=== PATIENT | male | born 1950 | race Caucasian/White ===

== ENCOUNTER → 2023-06-22 08:36 | Outpatient (REF) | payer MEDICARE, SELFPAY ==
[2023-06-22 10:48] LABS: PSA, Total - Diagnostic < 0.06 ng/ml (0.0-4.0)
== END ==
LOC: REG 08:36
PROVIDERS: ATTENDING PHYSICIAN Specialist
DX: C61 Malignant neoplasm of prostate (principal)
CPT/HCPCS: 36415; 84153

== ENCOUNTER → 2023-09-26 07:43 | Outpatient (REF) | payer MEDICARE, SELFPAY | LOC: RAD 07:43 | PROVIDERS: ATTENDING PHYSICIAN Surgery Vascular Surgery | DX: I71.40 Abdominal aortic aneurysm, without rupture, unspecified (principal) | CPT/HCPCS: 76770 ==

== ENCOUNTER 2023-10-25 01:09 | Emergency (ER) | payer MEDICARE, SELFPAY ==
[2023-10-25] VITALS (7 sets, daily range): BP systolic 131–152; BP diastolic 80–94; BMI 25.2
[2023-10-25 01:40] LABS: % Basophils 0.6 % (0-2); % Eosinophils 3.1 % (0-6); % Immature Granulocytes 0.1 % (0-0.5); % Lymphocytes 21.6 % (20.5-51.1); % Monocytes 8.5 % (1.7-9.3); % Neutrophils 66.1 % (42.2-75.2); Absolute Eosinophils 0.2 10^3/uL (0-0.7); Absolute Lymphocytes 1.5 10^3/uL (1.2-3.4); Absolute Monocytes 0.6 10^3/uL (0.1-0.6); Absolute Neutrophils 4.4 10^3/uL (1.4-6.5); Hematocrit 37.3 % (39.0-52.0); Hemoglobin 13.3 g/dL (13.0-18.0); Mean Corp Hgb Conc. 35.7 g/dL (33.0-37.0); Mean Corpuscular Hgb 29.4 pg (27.0-31.0); Mean Corpuscular Volume 82.5 fL (80.0-94.0); Mean Platelet Volume 9.9 fL (7.4-10.4); Nucleated Red Blood Cells % 0.3 % (-); Platelet Count 188 10^3/uL (130-400); Red Blood Cell Count 4.52 10^6/uL (4.70-6.10); Red Cell Dist. Width 14.2 % (11.5-14.5); White Blood Cell Count 6.7 10^3/uL (4.8-10.8)
[2023-10-25 01:56] LABS: ALT (SGPT) 22 U/L (0-50); AST (SGOT) 28 U/L (17-59); Albumin 4.4 g/dl (3.5-5.0); Alkaline Phosphatase 108 U/L (38-126); Blood Urea Nitrogen 22 mg/dl (9-20); Calcium 10.1 mg/dl (8.4-10.2); Carbon Dioxide 20 mmol/L (22-30); Chloride 108 mmol/L (98-107); Glucose 103 mg/dl (70-99); Potassium 4.3 mmol/L (3.5-5.1); Sodium 140 mmol/L (135-145); Total Bilirubin 0.4 mg/dl (0.2-1.3); Total Protein 7.3 g/dl (6.3-8.2); eGFR 49.16
[2023-10-25 04:07] LABS: Urine Albumin Negative (Neg - Trace); Urine Bilirubin Negative (Negative); Urine Character Clear (Clear); Urine Color Yellow; Urine Glucose Negative (Negative); Urine Ketone Negative (Negative); Urine Leukocyte Negative (Negative); Urine Nitrite Negative (Negative); Urine Occult Blood Negative (Negative); Urine Urobilinogen Negative (Neg - 1+)
--- NOTE | 2023-10-25 06:02 | ED.GENMED ---
History of Present Illness
General
Chief Complaint: Flank Pain
Time Seen by Provider: 10/25/23 06:02
Travel History
Have you had any contact with someone who has COVID-19?: No
Do you have any symptoms of coronavirus? Fever > 100 degrees, chills, cough, shortness of breath, sore throat, loss of taste or smell, muscle aches, or headache?: No
History of Present Illness
History of Present Illness:
HPI: The patient presents with right groin pain over the past day. This started somewhat mild and gradually progressed to the point that he has tremendous difficulty walking. He has no loss of strength distally but his range of motion at the right
hip is limited due to pain. He has had a AAA repair in the past.
EXAM:
GENERAL: Well appearing but appears to be somewhat uncomfortable
HEENT: Moist oral mucosa
CARDIOVASCULAR: No murmurs, normal heart rate, regular rhythm, No chest wall tenderness
PULMONARY: No respiratory distress, breath sounds are clear and equal
ABDOMEN: Soft with no peritoneal signs, no tenderness
NEUROLOGIC: Excellent strength all extremities distally, no coordination deficits
PSYCHIATRIC: Appropriate mental status, normal insight and judgement
EXTREMITIES: There is markedly decreased active range of motion to flexion at the right hip, there is very good distal function of the right lower extremity, there are excellent DP pulses bilaterally
SKIN: No rash, no lesions
TIME OF INITIAL ENCOUNTER: 6:20 AM
NUMBER AND COMPLEXITY OF PROBLEMS ADDRESSED AT THE ENCOUNTER
� Chronic conditions affecting care: Former smoker, AAA repair, high blood pressure, hyperlipidemia, CAD/AZ, CKD
� Acute Exacerbation and/or Progression of Chronic Illness: This is an acute problem
� Differential Diagnosis includes: Hip flexor pathology, ureteral stone, UTI/pyelonephritis,
AMOUNT AND/OR COMPLEXITY OF DATA TO BE REVIEWED AND ANALYZED
� I performed an independent evaluation of and my interpretation is:
EKG:
CT: I personally reviewed CT imaging and agree with radiologist interpretation�the patient has an atrophic right kidney. He is status post infrarenal AAA endograft placement. Liver cyst noted.
X-rays:
Laboratory Studies: White count and hemoglobin are normal, renal function is slightly impaired with creatinine 1.5. Urinalysis shows no blood and no sign of infection.
Other:
� Review of other/old records: I reviewed records, the last 2 creatinines were also abnormal from last year
� Clinical information was obtained by an independent historian: Spoke to the at bedside
� Prescriptions/Medications Considered but not given:
� Further testing considered but not performed:
RISK OF COMPLICATIONS AND/OR MORBIDITY OR MORTALITY OF PATIENT MANAGEMENT
� Social determinants of health affecting care: Lives at home
� Discussion with other providers:
� Escalation of care including admission/observation vs risk of discharge considered: CT imaging relatively unremarkable. Held off on IV contrast as the patient has renal insufficiency. I notified patient of the left renal
lesion and recommendation for outpatient ultrasound follow-up however all of his symptoms are on the right side. On reassessment at 7:20 AM, the patient reports significant improvement after narcotic analgesia was given. Suspect hip flexor
pathology possibly exacerbated by Brilinta use.
Past History
Past History
ED Past Medical History: CAD, GERD, HTN, Hypercholesterolemia and Other (AAA)
ED Past Surgical History: Cardiac, Orthopedic and Urological
Social History
Tobacco: Non-smoker
Personal:
Phy Exam
Physical Exam
Physical Exam:
See HPI
Course
Orders/Labs/Results
Orders:
Orders
10/25/23 01:32
CMP [Comprehensive Metabolic Panel] Urgent
Complete Blood Count/With Diff Urgent
10/25/23 03:11
CT Abd/pel Without Iv Or Oral Urgent
Comment:
Reason For Exam: r flank pain
10/25/23 04:01
Urinalysis Reflex To Culture Urgent
Date Specimen was Collected: 10/25/23
Time Specimen was Collected: 04:00
10/25/23 06:26
HYDROmorphone [Dilaudid] 0.5 mg IV NOW STA
Ondansetron Injectable [Zofran] 4 mg IV NOW STA
Abnormal Lab Results
10/25/23
01:32
RBC 4.52 L 10^6/uL
(4.70-6.10)
Hct 37.3 L %
(39.0-52.0)
Chloride 108 H mmol/L
(98-107)
Carbon Dioxide 20 L mmol/L
(22-30)
BUN 22 H mg/dl
(9-20)
Creatinine 1.5 H mg/dL
(0.7-1.3)
Glucose 103 H mg/dl
(70-99)
10/25/23 01:32
10/25/23 01:32
Vital Signs
Initial and Last Documented VS:
Initial Vital Signs
Temp Pulse Resp BP Pulse Ox
98.2 F 71 21 144/88 97
10/25/23 01:13 10/25/23 01:13 10/25/23 01:13 10/25/23 01:13 10/25/23 01:13
Last Documented Vital Signs
Temp Pulse Resp BP Pulse Ox
98.2 F 60 13 135/80 97
10/25/23 01:13 10/25/23 06:42 10/25/23 06:03 10/25/23 06:47 10/25/23 06:42
*Critical Care Note
Total Time (30-74mins, 75-104mins- exclusive of procedures): Not Applicable
ED Attending Note
-
Portions of this chart may have been created with voice recognition software.� Occasional wrong word or��sound alike� substitutions may have occurred due to the inherent limitations of voice recognition software.
Discharge Plan
Departure
Patient Disposition: Home (Routine Discharge)
Date of Disposition: 10/25/23
Time of Disposition: 07:19
Patient with high blood pressure during this ER visit?: Yes
Discharge Problem:
Strain of flexor muscle of right hip
Instructions: Muscle Strain (DC), BLOOD PRESSURE
Prescriptions:
New
oxycodone-acetaminophen [Percocet] 5-325 mg tablet
1 tab PO Q6HPRN PRN (Reason: pain) Qty: 14 0RF
ondansetron HCl 4 mg tablet
4 mg PO Q6H PRN (Reason: nausea and vomiting) Qty: 14 0RF
No Action
omeprazole 20 MG capsule,delayed release(DR/EC)
20 mg PO DAILY
magnesium oxide 500 MG capsule
500 mg PO DAILY
Men 50 Plus Multivitamin 1 EACH tablet
1 ea PO DAILY
loratadine 10 MG tablet
10 mg PO DAILY
metoprolol tartrate 25 MG tablet
25 mg PO BID
acetaminophen 325 MG tablet
650 mg PO Q4HWA 0RF
alum-mag hydroxide-simeth [Mag-Al Plus] 30 ML suspension
30 ml PO Q4HPRN PRN (Reason: INDIGESTION) 0RF
albuterol sulfate 90 mcg/actuation aerosol powdr breath activated
2 inh inhalation Q4H PRN (Reason: shortness of breath) Qty: 1 0RF
atorvastatin 40 mg Tablet
40 mg PO DAILY
aspirin 81 mg Tablet
81 mg PO DAILY
ezetimibe 10 mg Tablet
10 mg PO DAILY
coenzyme Q10 [CoQ-10] 100 mg Capsule
100 mg PO DAILY
cholecalciferol (vitamin D3) [Vitamin D3] 50 mcg (2,000 unit) Tablet
50 mcg PO DAILY
Edarbi 40 mg Tablet
40 mg PO DAILY
Brilinta 90 mg Tablet
90 mg PO BID
Vitamin B-12
1,000 mg PO DAILY
Referrals:
Elvis Moon MD [Active] - Follow up in 2-3 days
Charles Stewart MD [Family Provider] -
Activity Restrictions/Additional Instructions:
I recommend that you not take any ibuprofen/Motrin given the renal insufficiency. Otherwise your blood work is unremarkable. Urinalysis shows no sign of blood or infection. I suspect that your symptoms are related to a hip flexor strain. You
could consider following up with Dr. Moon in a few days if your symptoms persist. CAT scan shows the graft in your aortic aneurysm. Total hip arthroplasties are noted on CT. The radiologist also noted 'indeterminate exophytic left renal lesion
measuring 2 cm for which outpatient renal ultrasound is recommended'
Interventions
Interventions:
*Risk Screen - Suicide Last Done: 10/25/23 02:55
*General Assessment Last Done: 10/25/23 02:55
*Neglect/Abuse Screening Last Done: 10/25/23 02:55
ED- Fall Risk Assessment Last Done: 10/25/23 02:55
*ED COVID-19 Vaccine History Last Done: 10/25/23 02:55
GA-Nmckdx-Qfwawenljv Assessment Last Done: 10/25/23 02:55
ED-Male Genitourinary Assessment Last Done: 10/25/23 02:55
Discharge Date and Time
Print Language: JAPANESE
[2023-10-25] MEDS: DILAUDID 0.5 MG IV (06:35)
[2023-10-25] MEDS: ZOFRAN 4 MG IV (06:36)
== END 2023-10-25 07:51 | disposition home or self-care (01) ==
LOC: EMR 01:09
PROVIDERS: Student in an Organized Health Care Education/Training Program; EMERGENCY PHYSICIAN Emergency Medicine; FAMILY PHYSICIAN Internal Medicine
DX: R10.9 Unspecified abdominal pain (principal); E78.00 Pure hypercholesterolemia, unspecified; I12.9 Hypertensive chronic kidney disease with stage 1 through stage 4 chronic kidney disease, or unspecified chronic kidney disease; N18.9 Chronic kidney disease, unspecified; I25.10 Atherosclerotic heart disease of native coronary artery without angina pectoris; K21.9 Gastro-esophageal reflux disease without esophagitis; Z86.79 Personal history of other diseases of the circulatory system
CPT/HCPCS: 99284; 96374; 96375; 74176; 80053; 81003; 85025

== ENCOUNTER → 2023-11-02 12:47 | Outpatient (REF) | payer MEDICARE, SELFPAY | LOC: HWRAD 12:47 | PROVIDERS: ATTENDING PHYSICIAN Internal Medicine | DX: N28.1 Cyst of kidney, acquired (principal) | CPT/HCPCS: 76775 ==

== ENCOUNTER → 2023-11-14 09:40 | Outpatient (REF) | payer MEDICARE, SELFPAY ==
[2023-11-14 12:09] LABS: % Basophils 0.5 % (0-2); % Eosinophils 2.1 % (0-6); % Immature Granulocytes 0.3 % (0-0.5); % Lymphocytes 15.4 % (20.5-51.1); % Monocytes 7.9 % (1.7-9.3); % Neutrophils 73.8 % (42.2-75.2); Absolute Eosinophils 0.2 10^3/uL (0-0.7); Absolute Lymphocytes 1.2 10^3/uL (1.2-3.4); Absolute Monocytes 0.6 10^3/uL (0.1-0.6); Absolute Neutrophils 5.6 10^3/uL (1.4-6.5); Hematocrit 38.9 % (39.0-52.0); Mean Corp Hgb Conc. 33.4 g/dL (33.0-37.0); Mean Corpuscular Hgb 29.1 pg (27.0-31.0); Mean Corpuscular Volume 87.2 fL (80.0-94.0); Mean Platelet Volume 10.3 fL (7.4-10.4); Nucleated Red Blood Cells % 0 % (-); Platelet Count 215 10^3/uL (130-400); Red Blood Cell Count 4.46 10^6/uL (4.70-6.10); White Blood Cell Count 7.6 10^3/uL (4.8-10.8)
[2023-11-14 12:15] LABS: ALT (SGPT) 20 U/L (0-50); AST (SGOT) 28 U/L (17-59); Albumin 4.5 g/dl (3.5-5.0); Alkaline Phosphatase 81 U/L (38-126); Blood Urea Nitrogen 22 mg/dl (9-20); Calcium 9.8 mg/dl (8.4-10.2); Carbon Dioxide 25 mmol/L (22-30); Chloride 104 mmol/L (98-107); Glucose 91 mg/dl (70-99); HDL Cholesterol 31 mg/dl; LDL Cholesterol, Calculated 66 mg/dl; Potassium 5.2 mmol/L (3.5-5.1); Sodium 139 mmol/L (135-145); Total Bilirubin 0.6 mg/dl (0.2-1.3); Total Cholesterol 117 mg/dl (50-199); Total Protein 7.1 g/dl (6.3-8.2); Triglyceride 104 mg/dl (10-149); Very Low Density Lipoprotein 20 mg/dl (0-30)
[2023-11-14 12:40] LABS: TSH 2.65 uIU/ml (0.47-4.68)
== END ==
LOC: HWLAB 09:40
PROVIDERS: ATTENDING PHYSICIAN Internal Medicine
DX: I25.10 Atherosclerotic heart disease of native coronary artery without angina pectoris (principal); E78.2 Mixed hyperlipidemia; I10 Essential (primary) hypertension; I34.0 Nonrheumatic mitral (valve) insufficiency; Z98.890 Other specified postprocedural states; J44.9 Chronic obstructive pulmonary disease, unspecified; K21.9 Gastro-esophageal reflux disease without esophagitis; Z85.46 Personal history of malignant neoplasm of prostate; N18.30 Chronic kidney disease, stage 3 unspecified; Z76.89 Persons encountering health services in other specified circumstances
CPT/HCPCS: 36415; 80053; 80061; 84443; 85025

== ENCOUNTER → 2024-02-01 09:26 | Outpatient (REF) | payer MEDICARE, SELFPAY | LOC: RCS 09:26 | PROVIDERS: ATTENDING PHYSICIAN Nuclear Medicine Nuclear Cardiology; FAMILY PHYSICIAN Internal Medicine | DX: I10 Essential (primary) hypertension (principal) | CPT/HCPCS: 93306 ==

== ENCOUNTER → 2024-03-14 09:35 | Outpatient (REF) | payer MEDICARE, SELFPAY ==
[2024-03-14 12:18] LABS: Albumin 4.6 g/dl (3.5-5.0); Blood Urea Nitrogen 18 mg/dl (9-20); Calcium 9.7 mg/dl (8.4-10.2); Carbon Dioxide 26 mmol/L (22-30); Chloride 103 mmol/L (98-107); Glucose 92 mg/dl (70-99); Phosphorus 3.4 mg/dl (2.5-4.5); Potassium 4.8 mmol/L (3.5-5.1); Sodium 143 mmol/L (135-145)
[2024-03-14 13:10] LABS: Urine Protein < 5 mg/dl (0-12)
[2024-03-14 13:15] LABS: Urine Calcium 1.9 mg/dl
[2024-03-16 08:47] LABS: Intact PTH 43.8 pg/ml (13.6-85.8)
== END ==
LOC: HWLAB 09:35
PROVIDERS: ATTENDING PHYSICIAN Internal Medicine; FAMILY PHYSICIAN Internal Medicine
DX: N18.31 Chronic kidney disease, stage 3a (principal)
CPT/HCPCS: 36415; 80069; 82340; 83970; 84156

== ENCOUNTER → 2024-04-12 09:16 | Outpatient (REF) | payer MEDICARE, SELFPAY | LOC: HWRAD 09:16 | PROVIDERS: ATTENDING PHYSICIAN Internal Medicine Critical Care Medicine; FAMILY PHYSICIAN Internal Medicine | DX: Z87.891 Personal history of nicotine dependence (principal) | CPT/HCPCS: 71271 ==

== ENCOUNTER → 2024-05-29 09:35 | Outpatient (REF) | payer MEDICARE, SELFPAY ==
[2024-05-29 12:51] LABS: Albumin 4.5 g/dl (3.5-5.0); Blood Urea Nitrogen 19 mg/dl (9-20); Calcium 9.7 mg/dl (8.4-10.2); Carbon Dioxide 29 mmol/L (22-30); Chloride 101 mmol/L (98-107); Glucose 100 mg/dl (70-99); Phosphorus 3.6 mg/dl (2.5-4.5); Potassium 4.6 mmol/L (3.5-5.1); Sodium 140 mmol/L (135-145); eGFR 42.04
[2024-05-29 13:27] LABS: Microalbumin, Random Urine < 0.6 mg/dl (0.6-1.7); Microalbumin/creatinine Ratio 7.2 mg/g
[2024-05-29 14:11] LABS: Intact PTH 50.7 pg/ml (13.6-85.8)
== END ==
LOC: HWLAB 09:35
PROVIDERS: ATTENDING PHYSICIAN Internal Medicine
DX: N18.31 Chronic kidney disease, stage 3a (principal); N26.1 Atrophy of kidney (terminal); E87.5 Hyperkalemia
CPT/HCPCS: 36415; 80069; 82043; 82570; 83970

== ENCOUNTER → 2024-06-26 09:05 | Outpatient (REF) | payer MEDICARE, SELFPAY ==
[2024-06-26 14:41] LABS: PSA, Total - Diagnostic < 0.06 ng/ml (0.0-4.0)
== END ==
LOC: HWLAB 09:05
PROVIDERS: ATTENDING PHYSICIAN Specialist; FAMILY PHYSICIAN Internal Medicine
DX: C61 Malignant neoplasm of prostate (principal)
CPT/HCPCS: 36415; 84153

== ENCOUNTER → 2024-07-31 09:17 | Outpatient (REF) | payer MEDICARE, SELFPAY ==
[2024-07-31 13:06] LABS: ALT (SGPT) 20 U/L (0-50); AST (SGOT) 26 U/L (17-59); Albumin 4.1 g/dl (3.5-5.0); Alkaline Phosphatase 76 U/L (38-126); Blood Urea Nitrogen 16 mg/dl (9-20); Calcium 9.5 mg/dl (8.4-10.2); Carbon Dioxide 26 mmol/L (22-30); Chloride 106 mmol/L (98-107); Glucose 105 mg/dl (70-99); HDL Cholesterol 36 mg/dl; LDL Cholesterol, Calculated 66 mg/dl; Potassium 4.4 mmol/L (3.5-5.1); Sodium 140 mmol/L (135-145); Total Bilirubin 0.8 mg/dl (0.2-1.3); Total Cholesterol 118 mg/dl (50-199); Total Protein 6.8 g/dl (6.3-8.2); Triglyceride 84 mg/dl (10-149); Very Low Density Lipoprotein 16 mg/dl (0-30); eGFR 45.21
== END ==
LOC: HWLAB 09:17
PROVIDERS: ATTENDING PHYSICIAN Nuclear Medicine Nuclear Cardiology; FAMILY PHYSICIAN Internal Medicine
DX: I10 Essential (primary) hypertension (principal)
CPT/HCPCS: 36415; 80053; 80061

== ENCOUNTER → 2024-09-23 08:25 | Outpatient (REF) | payer MEDICARE, SELFPAY ==
[2024-09-23 10:43] LABS: Blood Urea Nitrogen 24 mg/dl (9-20); Calcium 9.4 mg/dl (8.4-10.2); Carbon Dioxide 23 mmol/L (22-30); Chloride 104 mmol/L (98-107); Glucose 97 mg/dl (70-99); Potassium 4.7 mmol/L (3.5-5.1); Sodium 141 mmol/L (135-145); eGFR 48.85
== END ==
LOC: HWLAB 08:25
PROVIDERS: ATTENDING PHYSICIAN Surgery Vascular Surgery; FAMILY PHYSICIAN Internal Medicine
DX: I71.40 Abdominal aortic aneurysm, without rupture, unspecified (principal)
CPT/HCPCS: 36415; 80048

== ENCOUNTER → 2024-09-25 07:11 | Outpatient (REF) | payer MEDICARE, SELFPAY | LOC: RAD 07:11 | PROVIDERS: ATTENDING PHYSICIAN Surgery Vascular Surgery; FAMILY PHYSICIAN Internal Medicine | DX: I71.40 Abdominal aortic aneurysm, without rupture, unspecified (principal) | CPT/HCPCS: 74174; Q9967 ==

== ENCOUNTER → 2024-11-06 08:53 | Outpatient (REF) | payer MEDICARE, SELFPAY ==
[2024-11-06 12:37] LABS: Albumin 4.3 g/dl (3.5-5.0); Blood Urea Nitrogen 31 mg/dl (9-20); Calcium 9.7 mg/dl (8.4-10.2); Carbon Dioxide 26 mmol/L (22-30); Chloride 106 mmol/L (98-107); Glucose 94 mg/dl (70-99); Phosphorus 3.8 mg/dl (2.5-4.5); Potassium 4.8 mmol/L (3.5-5.1); Sodium 141 mmol/L (135-145); eGFR 39.25
== END ==
LOC: HWLAB 08:53
PROVIDERS: ATTENDING PHYSICIAN Internal Medicine; FAMILY PHYSICIAN Internal Medicine
DX: N18.31 Chronic kidney disease, stage 3a (principal)
CPT/HCPCS: 36415; 80069

== ENCOUNTER 2024-11-12 18:23 | Inpatient (IN) | payer MEDICARE, SELFPAY ==
[2024-11-12] VITALS (19 sets, daily range): BP systolic 99–156; BP diastolic 63–103; BMI 26.9
[2024-11-12 13:01] LABS: % Basophils 0.5 % (0-2); % Eosinophils 2.6 % (0-6); % Immature Granulocytes 0.3 % (0-0.5); % Lymphocytes 15.3 % (20.5-51.1); % Monocytes 9.5 % (1.7-9.3); % Neutrophils 71.8 % (42.2-75.2); Absolute Eosinophils 0.2 10^3/uL (0-0.7); Absolute Lymphocytes 1.2 10^3/uL (1.2-3.4); Absolute Monocytes 0.7 10^3/uL (0.1-0.6); Absolute Neutrophils 5.5 10^3/uL (1.4-6.5); Hematocrit 41.2 % (39.0-52.0); Hemoglobin 14.3 g/dL (13.0-18.0); Mean Corp Hgb Conc. 34.7 g/dL (33.0-37.0); Mean Corpuscular Hgb 29.5 pg (27.0-31.0); Mean Corpuscular Volume 85.1 fL (80.0-94.0); Mean Platelet Volume 10.3 fL (7.4-10.4); Nucleated Red Blood Cells % 0 % (-); Platelet Count 182 10^3/uL (130-400); Red Blood Cell Count 4.84 10^6/uL (4.70-6.10); Red Cell Dist. Width 13.7 % (11.5-14.5); White Blood Cell Count 7.7 10^3/uL (4.8-10.8)
[2024-11-12 13:25] LABS: ALT (SGPT) 17 U/L (0-50); AST (SGOT) 20 U/L (17-59); Albumin 4.4 g/dl (3.5-5.0); Alkaline Phosphatase 69 U/L (38-126); Blood Urea Nitrogen 19 mg/dl (9-20); Calcium 9.8 mg/dl (8.4-10.2); Carbon Dioxide 24 mmol/L (22-30); Chloride 110 mmol/L (98-107); Glucose 96 mg/dl (70-99); Magnesium 2.3 mg/dl (1.6-2.3); Potassium 4.9 mmol/L (3.5-5.1); Sodium 142 mmol/L (135-145); Total Bilirubin 0.5 mg/dl (0.2-1.3); Total Protein 7.2 g/dl (6.3-8.2); eGFR 53.07
[2024-11-12 13:31] LABS: NT-proBNP 1250 pg/ml
[2024-11-12 14:06] LABS: TSH Reflex To Free T4 2.87 uIU/ml (0.47-4.68)
[2024-11-12] MEDS: LOPRESSOR 5 MG IV (14:32)
--- NOTE | 2024-11-12 15:30 | ED.GENMED ---
History of Present Illness
General
Chief Complaint: Dizziness
Time Seen by Provider: 11/12/24 13:50
History of Present Illness
History of Present Illness:
74-year-old male with history of hypertension, hyperlipidemia, AAA status post repair presenting to the emergency department for generalized weakness and fatigue. Patient reports symptoms for the past 3 weeks. He went to his doctor today, was
found to be hypotensive. Plan was to cut his blood pressure medication, however then also noted that he was in atrial fibrillation. Patient was subsequently sent to the cardiology office. During intake at the cardiology office, again noted to be
hypotensive, sent to the ER for further assessment. Does note that he did syncopal episode yesterday, found him on the ground. Denies any associated chest pain or difficulty breathing. Does note that last evening he felt like his heart was
racing, otherwise denies significant palpitations. No known history of atrial fibrillation. He is not anticoagulated. He is scheduled next month to get revision of his AAA. Denies additional acute medical complaints
Past History
Past History
ED Past Medical History: CAD, GERD, HTN, Hypercholesterolemia and Other (AAA)
ED Past Surgical History: Cardiac, Orthopedic and Urological
Social History
Tobacco: Non-smoker
Personal:
Phy Exam
Physical Exam
Physical Exam:
General: Well-appearing, no clinical signs of dehydration, nontoxic and in no acute distress
HEENT: protecting airway
Neck: appears supple
CV: Irregular irregular rhythm, tachycardic
Resp: No accessory muscle use, no increased work of breathing, lungs clear to auscultation bilaterally
Abd: Soft and non-distended, no tenderness to palpation
Extremities: No deformities, no swelling, no erythema
Neuro: alert, no focal neurologic deficit
: deferred
Rectal: deferred
Psych: Normal affect
Skin: Intact
Scores
[id number] Score for Afib Stroke Risk
Age in Years (65=0, 65-74=1, >/=75=2): 65-74
Sex (Female=+1): Male
Congestive Heart Failure History (Yes=+1): No
Hypertension History (Yes=+1): Yes
Stroke/TIA/Thromboembolism History (Yes=+2): No
Vascular Disease History (Yes=+1): No
Diabetes Mellitus (Yes=+1): No
Score: 2
Anticoagulation Recommendations: Recommend anticoagulation (as validated in nonvalvular fib)
Course
Orders/Labs/Results
Orders:
Orders
11/12/24 12:36
Electrocardiogram (*1) Urgent
Reason for Study: Vertigo / Dizzy
EKG- Treatment ONCE
11/12/24 12:54
CBC/With Diff [Complete Blood Count/With Diff] Urgent
CMP [Comprehensive Metabolic Panel] Urgent
Magnesium Urgent
Pro-BNP [NT-proBNP] Urgent
TSH Reflex To Free T4 Urgent
Troponin I Urgent
Comment: ADD ON
11/12/24 14:15
Metoprolol [Lopressor] 5 mg IV NOW STA
11/12/24 16:47
CR Chest - 2 Views Stat
Comment:
Reason For Exam: CHF
11/12/24 16:48
Add On- LAB Routine
Tests Added?: TSH with reflex to free T4
Add On- LAB Routine
Tests Added?: troponin
11/12/24 17:00
Diltiazem 125 mg/125 ml Nss [Cardizem] 125 mg in 125 ml IV PER PROTOCOL
Initial dose in mg/hr, then titrate:: 5
Titrate to keep:: Heart rate 80-100 bpm
Titrate by mg/hr:: 5 mg/hr
Frequency of titrations (minutes):: 15
Maximum dose in mg/hr:: 15
11/12/24 17:50
Admit/Transfer Patient As Directed
Co-Sign Provider:
Level of Care: Inpatient admission
Assign to:: IVU
Physician / Group: [email or web address]
Diagnosis: New A Flutter
Reason for Hospitalization: new a flutter
Expected length of stay greater than two midnights?: Yes
ELOS- Estimated Length of Stay in days: 3
I certify the patient meets the requirements for IP care: Yes
11/12/24 18:00
Furosemide [Lasix] 20 mg IV ONCE ONE
11/12/24 20:00
Apixaban [Eliquis] 5 mg PO BID
11/12/24 20:10
Albuterol [ProAIR HFA INHALER] 2 puff INH R Q4HPRN PRN sob
Atorvastatin [Lipitor] 40 mg PO QPM
azilsartan medoxomil [Edarbi] See Dose Instructions PO QPM
11/13/24 08:00
Aspirin Low Dose EC [Aspir Low (Enteric Coated)] 81 mg PO DAILY
Ezetimibe [Zetia] 10 mg PO DAILY
11/15/24 11:00
DC Protocol for Telemetry ONCE
Abnormal Lab Results
11/12/24
12:54
Absolute Monos (auto) 0.7 H 10^3/uL
(0.1-0.6)
Lymphocytes % 15.3 L %
(20.5-51.1)
Monocytes % 9.5 H %
(1.7-9.3)
Chloride 110 H mmol/L
(98-107)
Creatinine 1.4 H mg/dL
(0.7-1.3)
11/12/24 12:54
11/12/24 12:54
Vital Signs
Initial and Last Documented VS:
Initial Vital Signs
Temp Pulse Resp BP Pulse Ox
98.4 F 125 20 145/85 97
11/12/24 12:42 11/12/24 12:42 11/12/24 12:42 11/12/24 12:42 11/12/24 12:42
Last Documented Vital Signs
Temp Pulse Resp BP Pulse Ox
97.8 F 65 16 118/80 96
11/13/24 11:31 11/13/24 14:15 11/13/24 11:31 11/13/24 11:31 11/13/24 11:31
MDM/Problems Addressed
MDM/Problems Addressed:
74-year-old male with history of AAA status post repair, hypertension presenting for weakness and fatigue with syncopal episode yesterday. Vital signs are significant for tachycardia, noted to be hypotensive prior to arrival, presently normotensive.
On exam patient is resting comfortably, no acute distress or discomfort. EKG and monitors consistent with a flutter with RVR. Suspect etiology of patient's symptoms, which has been ongoing for the past several weeks. Given duration of symptoms
and no anticoagulation status, not candidate for cardioversion. Will plan for laboratory analysis. Will try metoprolol for rate control and discussed with cardiology.
15:30 - Heart rate slightly improved after metoprolol. Labs grossly unremarkable. Pending cardiology assessment
*Pulse Oximetry
SaO2: 97
Oxygen Mode of Delivery: Room air
Patient hypoxic: no
*EKG
Interpreted by ED Provider?: Yes
EKG Intrepretation Date: 11/12/24
EKG Intrepretation Time: 15:37
Interpretation: abnormal
Comparison EKG: changes noted
Heart Rate: 123
Rate: tachycardiac
Rhythm: atrial flutter
[place]: normal axis
QRS Pattern: normal QRS
Ischemia: non-specific ST changes
*Critical Care Note
Total Time (30-74mins, 75-104mins- exclusive of procedures): Not Applicable
ED Attending Note
-
Portions of this chart may have been created with voice recognition software.� Occasional wrong word or��sound alike� substitutions may have occurred due to the inherent limitations of voice recognition software.
Discharge Plan
Departure
Patient Disposition: Admit
Date of Disposition: 11/12/24
Time of Disposition: 16:57
Presentation/result/management discussed w/ accepting MD/DO: Hospitalist
Condition: Fair
Discharge Problem:
New onset atrial fibrillation, CHF (congestive heart failure)
Interventions
Interventions:
*Risk Screen - Suicide Last Done: 11/12/24 12:42
*General Assessment Last Done: 11/12/24 12:42
*Neglect/Abuse Screening Last Done: 11/12/24 12:42
*ED COVID-19 Vaccine History Last Done: 11/12/24 20:13
*Nursing Disposition Last Done: 11/12/24 19:55
ED- Neurological Assessment Last Done: 11/12/24 13:48
ED- Cardiac Assessment Last Done: 11/12/24 13:48
Discharge Date and Time
Discharge Date/Time: 11/12/24 19:58
--- NOTE | 2024-11-12 16:42 | CON.CAR ---
Addendum entered and electronically signed by Brody Urias DO 11/12/24 17:39:
I saw and examined the patient.
The Aeronautical Engineering Officer's note was reviewed and I agree with the note.
Comment:
Plan:
Discussed atrial fibrillation including rate control, rhythm control and stroke prophylaxis.
Start IV Cardizem and titrate as needed for better heart rate control.
He was not on any AV yasmin blocking agents prior to admission.
Start Eliquis 5 mg twice daily and continue aspirin as he has a history of significant CAD.
He has elevated [id number] score.
Discussed rhythm control with WERO/cardioversion in the a.m. He does have a narrow window as he has an upcoming surgery/procedure with vascular at the end of November. He understands that he will require 4 weeks of anticoagulation prior to holding it
for his procedure.
May ultimately consider Amiodarone in attempt to keep patient in sinus rhythm in preparation for upcoming surgery
He may be considered for ablation in the future pending recurrence.
Received IV lasix for elevated pBNP and evidence of volume overload.
Monitor bps with AV yasmin blockers
Nephrology reportedly told patient to decrease his Edarbi to 20 mg daily at office visit earlier today
Check troponin and TSH
Discussed with at bedside.
HPI: Patient is a 74-year-old male with past medical history of CAD with NSTEMI status post PCI to RCA and OM1 08/2022. During that time was also noted to have OM2 disease which was ballooned as vessel was small and not amenable to PCI. He had been
on aspirin and Brilinta, with Brilinta being stopped 07/2024. He also has history of hypertension, hyperlipidemia, GERD, history of prostate cancer s/p prostatectomy. He is followed by vascular for AAA status post repair with stent graft in 2020
and is scheduled for upcoming vascular surgery for endoleak repair with Dr. Ivan 12/17/2024. In preparation for this he was seen today by Dr. Beck as he has chronic renal insufficiency due to prior atrophic right kidney and was noted to have
elevated heart rate. He then presented to cardiology office and was referred to the ER. On arrival to ER was noted to be in a flutter with RVR, new diagnosis. He reports over the last week he has noted worsening generalized fatigue. His
also reports he fell 2 days ago while carrying a 2 x 4 and he states it was related to generalized weakness. He denies loss of consciousness. He denies chest discomfort. He does report some abdominal bloating and lower extremity edema. proBNP
1250.
Original Note:
Consultation
Consultation Request
Date/Time Consultation Performed: 11/12/24
Requesting Provider: Dr. Eldridge
Performing Provider: Vanita Ring PA-C for Dr. Urias
Reason for Consultation: aflutter
Medical History
-
Chief Complaint: elevated HR
History of Present Illness:
Patient is a 74-year-old male with past medical history of CAD with NSTEMI status post PCI to RCA and OM1 08/2022. During that time was also noted to have OM2 disease which was ballooned as vessel was small and not amenable to PCI. He had been on
aspirin and Brilinta, with Brilinta being stopped 07/2024. He also has history of hypertension, hyperlipidemia, GERD, history of prostate cancer s/p prostatectomy. He is followed by vascular for AAA status post repair with stent graft in 2020 and
is scheduled for upcoming vascular surgery for endoleak repair with Dr. Ivan 12/17/2024. In preparation for this he was seen today by Dr. Beck as he has chronic renal insufficiency due to prior atrophic right kidney and was noted to have
elevated heart rate. He then presented to cardiology office and was referred to the ER. On arrival to ER was noted to be in a flutter with RVR, new diagnosis. He reports over the last week he has noted worsening generalized fatigue. His
also reports he fell 2 days ago while carrying a 2 x 4 and he states it was related to generalized weakness. He denies loss of consciousness. He denies chest discomfort. He does report some abdominal bloating and lower extremity edema. proBNP
1250.
PMH:
CAD with NSTEMI status post PCI to RCA and OM 05/2022 with ballooning of OM 2 as small and not amenable to PCI
AAA with endoleak planned for repair 12/17/2024
Hypertension
Hyperlipidemia
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
Prostate cancer status post prostatectomy
GERD
Past Medical History
Past Medical History: Other (in HPI)
Social History
Tobacco: Former Smoker
Alcohol: Occasional
Personal:
Living: With Family
Family History
Family History: Other (AAA, heart disease, kidney failure, CAD/MA, hypertension)
Allergies / Home Medications
Allergy/AdvReac Type Severity Reaction Status Date / Time
adhesive tape Allergy BLISTERS Verified 11/12/24 12:42
cat dander Allergy Hives Verified 11/12/24 12:42
Seasonal Allergy Nasal Uncoded 11/12/24 12:42
congestion,
itchy eyes
�Medication �Instructions �Recorded �Confirmed �Type
omeprazole 20 mg capsule,delayed 20 mg PO DAILY 01/18/11 11/12/24 History
release
ticmbgkl-cj-nxvrv 300 mcg-K 60 1 ea PO DAILY 05/07/18 11/12/24 History
mcg-lycop 600 mcg-lutein 300 mcg
tablet (Men 50 Plus Multivitamin)
loratadine 10 mg tablet 10 mg PO DAILY 03/18/19 11/12/24 History
albuterol sulfate 90 mcg/actuation 2 inh inhalation Q4H PRN shortness 04/03/23 11/12/24 Rx
breath activated powder inhaler of breath #1 ea
aspirin 81 mg tablet 81 mg PO DAILY 10/25/23 11/12/24 History
atorvastatin 40 mg tablet 40 mg PO DAILY 10/25/23 11/12/24 History
azilsartan medoxomil 40 mg tablet 40 mg PO DAILY 10/25/23 11/12/24 History
(Edarbi)
cholecalciferol (vitamin D3) 50 50 mcg PO DAILY 10/25/23 11/12/24 History
mcg (2,000 unit) tablet (Vitamin
D3)
coenzyme Q10 100 mg capsule 300 mg PO DAILY 10/25/23 11/12/24 History
(CoQ-10)
ezetimibe 10 mg tablet 10 mg PO DAILY 10/25/23 11/12/24 History
ondansetron HCl 4 mg tablet 4 mg PO Q6H PRN nausea and 10/25/23 11/12/24 Rx
vomiting #14 tabs
Review of Systems
-
History Source: Patient and Family
All other systems: Negative unless noted
Physical Exam
Vital Signs
Temp Pulse Resp BP Pulse Ox
98.4 F 109 19 122/96 96
11/12/24 12:42 11/12/24 15:53 11/12/24 15:53 11/12/24 15:53 11/12/24 15:53
Lab Results
11/12/24 12:54
11/12/24 12:54
Phd-S-Sxearwbmcww Pept 1250 pg/ml 11/12/24 12:54
Physical Exam
General: No Apparent Distress and Comfortable
HEENT: Normocephalic, Anicteric and Moist Mucous Membranes
Respiratory: Crackles (LLB) and Non Labored Respirations
Cardiac: S1/S2 and Irregular Rhythm
GI: Soft, Non Tender, Normal Bowel Sounds and Distended (mild)
Musculoskeletal: No Clubbing, No Cyanosis and Edema (trace -1+ edema of B/L LE)
Skin: Warm and Dry
Neuro: AO x 3
Impression / Plan
-
Primary Armature Winder: Dr. Urias
Assessment:
Presentation with elevated heart rate
Typical atrial flutter with RVR, new diagnosis
Relative hypotension
Acute CHF, unknown type, suspected diastolic
Fall 11/10/24
CAD with NSTEMI status post PCI to RCA and OM 05/2022 with ballooning of OM 2 as small and not amenable to PCI
AAA with endoleak planned for repair 12/17/2024
Hypertension
Hyperlipidemia
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
Prostate cancer status post prostatectomy
GERD
ECHO 02/01/2024: EF 55 to 60%, no regional wall motion abnormalities noted, mild concentric LVH, mild to moderate MR
Plan:
- Patient presented with elevated heart rate and found to be in typical atrial flutter with RVR, new diagnosis of unclear duration. Also noted to have some evidence of acute CHF, new diagnosis
- As heart rates are variable in a flutter and patient symptomatic, will start IV Cardizem gtt at 5 and uptitrate as needed for heart rate control
- He was not on rate control agents prior to admission
- [id number] score of 4 for age, hypertension, CHF, vascular disease. Discussed anticoagulation and patient agreeable. Will continue aspirin 81 mg daily and add Eliquis 5 mg twice daily. Case management to assess cost to patient
- N.p.o. for WERO/cardioversion in a.m. procedure discussed with patient and family at bedside
- may consider for initiation of amiodarone in attempt to keep patient in sinus rhythm in preparation for upcoming surgery
- proBNP 1250. Chest x-ray ordered by me. Creatinine 1.4. Will give dose of IV Lasix 20 mg x 1 and assess response
- Will reassess EF by WERO in a.m. last echo from 01/2024 with results as above
- Check TSH
- Check troponin given CAD history
- Nephrology reportedly told patient to decrease his Edarbi to 20 mg daily at office visit earlier today
- Discussed with patient and family at bedside
Data Reviewed
-
EKG: Tracing Personally Visualized and interpreted
Medical Tests (Nuc Med, Echo etc): Report Reviewed by me
Labs: Labs Reviewed by me
Old Records: Reviewed
[2024-11-12] MEDS: LASIX 20 MG IV (17:40)
[2024-11-12] MEDS: CARDIZEM 125 IV (17:43)
--- NOTE | 2024-11-12 17:46 | HPS.HSE ---
Family Physician
-
Family Physician: Charles Stewart
Chief Complaint
-
new A Flutter
History of Present Illness
74M HX CAD with NSTEMI , PCI to RCA had been on aspirin and Brilinta, Brilinta being stopped 07/2024, also HX hypertension, hyperlipidemia, GERD, prostate cancer s/p prostatectomy, HX AAA status post repair with stent graft in 2020 and is
scheduled for upcoming vascular surgery for endoleak repair with Dr. Ivan 12/17/2024. I
Dr. Beck as he has chronic renal insufficiency due to prior atrophic right kidney and was noted to have elevated heart rate. He then presented to cardiology office and was referred to the ER.
On arrival to ER was noted to be in a flutter with RVR, new diagnosis.
fell 2 days ago elated to generalized weakness. H
Medical History
Past Medical History
Past Medical History: Reports HTN and Hypercholesterolemia
Additional Past Medical History:
CAD with NSTEMI status post PCI to RCA and OM 05/2022 with ballooning of OM 2 as small and not amenable to PCI
AAA with endoleak planned for repair 12/17/2024
Hypertension
Hyperlipidemia
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
Prostate cancer status post prostatectomy
GERD
Past Surgical History: Reports Urological (prostatectomy)
Social History
Tobacco: Non-smoker
Alcohol: None
Family History
Family History: Not pertinent
Allergies / Home Medications
Allergies reflects when Allergies were last updated in [facility].
Home Medications with original date entered in [facility]
Allergy/Medication List:
Allergies
Allergy/AdvReac Type Severity Reaction Status Date / Time
adhesive tape Allergy BLISTERS Verified 11/12/24 12:42
cat dander Allergy Hives Verified 11/12/24 12:42
Seasonal Allergy Nasal Uncoded 11/12/24 12:42
congestion,
itchy eyes
Home Medications
omeprazole 20 mg capsule,delayed release 20 mg PO DAILY 01/18/11
loratadine 10 mg tablet 10 mg PO DAILY 03/18/19
atorvastatin 40 mg tablet 40 mg PO QPM 10/25/23
azilsartan medoxomil 40 mg tablet (Edarbi) 40 mg PO QPM 10/25/23
cholecalciferol (vitamin D3) 50 mcg (2,000 unit) tablet (Vitamin D3) 50 mcg PO QPM 10/25/23
coenzyme Q10 100 mg capsule (CoQ-10) 300 mg PO DAILY 10/25/23
ezetimibe 10 mg tablet 10 mg PO DAILY 10/25/23
Prevagen 1 cap PO DAILY 11/12/24
albuterol sulfate 90 mcg/actuation aerosol inhaler (Ventolin HFA) 2 puff inhalation R Q4HPRN PRN sob 11/12/24
aspirin 325 mg tablet 975 mg PO DAILYPRN PRN mild pain 11/12/24
aspirin 81 mg tablet,delayed release 81 mg PO DAILY 11/12/24
multivitamin 1 tab PO QPM 11/12/24
Review of Systems
-
Constitutional: Reports No Symptoms
EENT: Reports No Symptoms
Respiratory: Reports No Symptoms
Cardiac: Reports See HPI
Abdomen/GI: Reports No Symptoms
: Reports No Symptoms
Musculoskeletal: Reports No Symptoms
Skin: Reports No Symptoms
Neurological: Reports No Symptoms
Endocrine: Reports No Symptoms
Hematologic/Lymphatic: Reports No Symptoms
Psych: Reports No Symptoms
Physical Exam
Vital Signs
Vital Signs
Temp Pulse Resp BP Pulse Ox
98.4 F 126 17 139/90 97
11/12/24 12:42 11/12/24 17:40 11/12/24 17:38 11/12/24 17:40 11/12/24 17:38
Physical Exam
General: Well Developed, Well Nourished and No Apparent Distress
HEENT: NormoCephalic, Moist mucous membranes and Atraumatic
Respiratory: Clear
Cardiac: S1/S2 and Irregular Rhythm; No Murmur or Rub
GI: Soft, Non Tender, Non Distended and Normal Bowel Sounds; No Organomegaly
Rectal: Deferred by Provider
Musculoskeletal: No Clubbing, No Cyanosis and No Edema
Skin: No Rash
Neuro: Nonfocal/grossly intact
Laboratory Results
-
11/12/24 12:54
11/12/24 12:54
Laboratory Results
Total Bilirubin 0.5 mg/dl (0.2-1.3) 11/12/24 12:54
AST 20 U/L (17-59) 11/12/24 12:54
ALT 17 U/L (0-50) 11/12/24 12:54
Alkaline Phosphatase 69 U/L (38-126) 11/12/24 12:54
Data Reviewed
-
Medical Tests (Nuc Med, Echo, EKG etc): Report Reviewed by me
Impression/Plan
-
ASSESSMENT & PLAN
Pending Rx reconciliation
New onset of A flutter with RVR, new diagnosis
Relative hypotension
Acute CHF, unknown type
Fall 11/10/24
[id number] score of 4
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
- agree with Eliquis - Case management to assess cost
- Diltiazem gtt
- NPO for WERO/cardioversion in AM
- f/u TSH
- appreciated DCA Card consult
Known HX
CKD 3 HC
HX CAD with NSTEMI status post PCI to RCA and OM
AAA with endoleak planned for repair 12/17/2024
Hypertension
Hyperlipidemia
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
Prostate cancer status post prostatectomy
GERD
DVT Px: Eliquis
Code: Full code
IP TLM
[2024-11-12 18:00] LABS: Troponin I < 0.012 ng/ml
[2024-11-12] MEDS: LIPITOR 40 MG PO (20:28)
[2024-11-12] MEDS: ELIQUIS 5 MG PO (20:28)
--- NOTE | 2024-11-12 22:07 | PTCARENOTE ---
Pt was transferred from ER into 2257 @ 1945. Pt is AAOx3 A Flutter on the monitor Cardizem infusing @ 15 mg/HR VSS. Pt was oriented to the room. Audrey started. Call vargas within reach.
--- NOTE | 2024-11-12 23:31 | PTCARENOTE ---
Pt converted to SR 65 EKG performed Ed Jake yost.
[2024-11-13] VITALS (12 sets, daily range): BP systolic 93–125; BP diastolic 49–82; BMI 26.9
--- NOTE | 2024-11-13 03:17 | PTCARENOTE ---
Updated Zen Joseph PA Pt's HR 60's BP 90's/ 60's on Cardizem 5mg/HR. Ok the decrease to 2.5 mg/HR
[2024-11-13] MEDS: ASPIR LOW (ENTERIC COATED) 81 MG PO (07:26)
[2024-11-13] MEDS: ELIQUIS 5 MG PO (07:26)
[2024-11-13] MEDS: ZETIA 10 MG PO (07:26)
--- NOTE | 2024-11-13 08:03 | W.PN.CARDCBS ---
Addendum entered and electronically signed by Vanita Ring PA-C 11/14/24 12:58:
[id number]
Addendum entered and electronically signed by Brody Urias DO 11/13/24 10:31:
I saw and examined the patient.
The Director Of Nuclear Medicine's note was reviewed and I agree with the note.
Comment:
Plan:
Spontaneously converted to sinus
Initiate Amiodarone 200 mg BID for one month then 200 mg daily.
Cont Eliquis, case management to assess cost
Cont ASA for hx CAD
For now no daily lasix with CKD and atrophic right kidney
Check daily wts and call with wt gain.
Check echo
Outpt follow up arranged
Discussed with via phone at length and answered questions.
Original Note:
Today's Communication / Plan
-
initiate amiodarone 200mg BID for 4 weeks then 200mg daily
toprol 12.5mg daily if BP can tolerate
nephrology had decreased edarbi to 20mg QPM at office visit yesterday
asa, eliquis
no standing lasix
check echo
likely DC later today
OP cardiac follow up arranged
Impression / Plan
-
Primary Wire Stripper: Dr. Urias
Assessment:
Presentation with elevated heart rate
Typical atrial flutter with RVR, new diagnosis
Relative hypotension
Acute CHF, unknown type, suspected diastolic
Fall 11/10/24
CAD with NSTEMI status post PCI to RCA and OM 05/2022 with ballooning of OM 2 as small and not amenable to PCI
AAA with endoleak planned for repair 12/17/2024
Hypertension
Hyperlipidemia
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
Prostate cancer status post prostatectomy
GERD
ECHO 02/01/2024: EF 55 to 60%, no regional wall motion abnormalities noted, mild concentric LVH, mild to moderate MR
ECHO 11/13/24: pending
Plan:
- Patient presented in typical a flutter with RVR, was started on IV Cardizem drip and spontaneously converted to sinus rhythm overnight. WERO/CV cancelled
- As he is planned for upcoming surgery, we will plan to initiate amiodarone 200 mg twice daily for 4 weeks then decrease to 200 mg daily
- Will add Toprol 12.5 mg daily given aflutter as well as history of CAD if blood pressures will tolerate
- continue aspirin 81 mg daily and Eliquis 5 mg twice daily added
- good response to IV lasix 20mg last evening. will likely not DC on standing lasix given baseline renal insufficiency. awaiting Cr this AM
- check echo
- TSH WNL
- Nephrology reportedly told patient to decrease his Edarbi to 20 mg daily at office visit earlier today
- ok for DC later today
- OP cardiac follow up arranged
- Discussed with via telephone. Discussed with nursing
- Discussed with hospitalist. patient transferred to cardiology service for DC.
Progress Note - Wire Stripper
Subjective
Date of Service: November 13, 2024
reports feeling tired but no c/o palpitations.
Objective
Labs:
11/12/24 12:54
11/12/24 12:54
Labs
Hgb 14.3 g/dL (13.0-18.0) 11/12/24 12:54
Hct 41.2 % (39.0-52.0) 11/12/24 12:54
Plt Count 182 10^3/uL (130-400) 11/12/24 12:54
Sodium 142 mmol/L (135-145) 11/12/24 12:54
Potassium 4.9 mmol/L (3.5-5.1) 11/12/24 12:54
BUN 19 mg/dl (9-20) 11/12/24 12:54
Creatinine 1.4 mg/dL (0.7-1.3) H 11/12/24 12:54
Glucose 96 mg/dl (70-99) 11/12/24 12:54
Troponins
11/12/24
12:54
Troponin I < 0.012
Vital Signs and I&O:
Vital Signs
Temp Pulse Resp BP Pulse Ox
98.2 F 68 16 97/82 97
11/13/24 04:36 11/13/24 06:00 11/13/24 04:36 11/13/24 06:00 11/13/24 04:36
Vital Signs
Temp Pulse Resp BP Pulse Ox
98.2 F 68 16 97/82 97
11/13/24 04:36 11/13/24 06:00 11/13/24 04:36 11/13/24 06:00 11/13/24 04:36
Intake & Output
11/11/24 11/12/24 11/13/24 11/14/24
07:59 07:59 07:59 07:59
Output Total 1425 / 1425
Balance -1425 / -1425
Physical Exam
Physical Exam
GEN: No distress, awake, alert, oriented x3
HEENT: supple, anicteric, mmm, eomi
LUNGS: CTA B/L, no wheezes
CV: Reg, S1/S2, no murmur
ABD: soft, BS+, NT/ND
EXT: No cyanosis, clubbing, edema
NEURO: Gross non-focal
SKIN: Warm, pink, dry. No rash
[2024-11-13] MEDS: PACERONE 200 MG PO (08:23)
[2024-11-13] MEDS: TOPROL XL 12.5 MG PO (09:25)
[2024-11-13 09:27] LABS: Blood Urea Nitrogen 23 mg/dl (9-20); Calcium 9.5 mg/dl (8.4-10.2); Carbon Dioxide 22 mmol/L (22-30); Chloride 109 mmol/L (98-107); Estimated Creatinine Clearance 46 ml/min; Glucose 103 mg/dl (70-99); Potassium 4.7 mmol/L (3.5-5.1); Sodium 142 mmol/L (135-145); eGFR 45.21
--- NOTE | 2024-11-13 09:49 | W.DS.TRANS ---
DC Summary - Hydrometer Tester
-
Discharge Instructions:
Discharge Diagnosis/Procedures paroxysmal atrial flutter
Diet Low Cholesterol,Low Sodium
Activity As tolerated
Driving Restrictions As prior to admission
Specialty Instructions Weigh Daily
Instructions:
Stand-Alone Forms:
Changes to Home Medications: Yes
Discharge Medications:
DC Medications w/original date entered in [facility]
omeprazole 20 mg capsule,delayed release 20 mg PO DAILY 01/18/11
loratadine 10 mg tablet 10 mg PO DAILY 03/18/19
atorvastatin 40 mg tablet 40 mg PO QPM 10/25/23
cholecalciferol (vitamin D3) 50 mcg (2,000 unit) tablet (Vitamin D3) 50 mcg PO QPM 10/25/23
coenzyme Q10 100 mg capsule (CoQ-10) 300 mg PO DAILY 10/25/23
ezetimibe 10 mg tablet 10 mg PO DAILY 10/25/23
Prevagen 1 cap PO DAILY 11/12/24
albuterol sulfate 90 mcg/actuation aerosol inhaler (Ventolin HFA) 2 puff inhalation R Q4HPRN PRN sob 11/12/24
aspirin 81 mg tablet,delayed release 81 mg PO DAILY 11/12/24
multivitamin 1 tab PO QPM 11/12/24
amiodarone 200 mg tablet 200 mg PO BID #60 tabs 11/13/24
amiodarone 200 mg tablet 200 mg PO DAILY #30 tabs 11/13/24
apixaban 5 mg tablet (Eliquis) 5 mg PO BID #60 tabs 11/13/24
azilsartan medoxomil 40 mg tablet (Edarbi) 20 mg (1/2 x 40 mg) PO QPM #0 tabs 11/13/24
metoprolol succinate 25 mg tablet,extended release 24 hr 12.5 mg (1/2 x 25 mg) PO DAILY #30 tabs 11/13/24
Home Medication Changes
amiodarone is new - 200mg BID for 4 weeks then decrease to 200mg daily
edarbi decreased to 20mg daily as per nephro recs
toprol is new - hold parameters for SBP<100
eliquis is new
Pending Results: No
[2024-11-13] MEDS: PROTONIX 40 MG PO (10:36)
--- NOTE | 2024-11-13 12:33 | CM ---
Chart reviewed. Patient is independent of ADLS, lives with his in a [address], 2 [address], 0 DME. Plan is for the patient to return home.
--- NOTE | 2024-11-13 12:34 | CM ---
Pricing on Eliquis through the patient's [facility] is $47 for a 30 day supply. Patient is agreeable to cost. Free 30 day coupon placed in the red discharge folder.
--- NOTE | 2024-11-13 15:20 | PTCARENOTE ---
Pt received this am in SR. OOB ad radha in the room, gait steady. Pt discharge to home with his after the Echo was completed. Discharge instructions given and reviewed with pt and his with good understanding and all questions answered.
--- NOTE | 2024-11-14 09:02 | W.HF.CON ---
Heart Failure
- LV Function
Left ventricular function study result: LV Ejection fraction >/= 50%
Ejection Fraction Percentage: 55-60
- ARNI
Patient already on ARNI: No
Heart Failure ARNI Not Indicated: LV Ejection Fraction >/= 40%
- ACEI/ARB
Patient already on ACEI/ARB: Yes
- Beta Sirisha
Patient already on Evidence Based Beta Sirisha: Yes
- Mineralocorticord Receptor Antagonist
Patient already on MRA: No
Heart Failure MRA Not Indicated: LV Ejection Fraction > 40%
- SGLT-2 Inhibitor
Patient already on SGLT-2 Inhibitor: No
Heart Failure SGLT-2 Inhibitor Contraindication: Patient Refusal
- Afib Anticoagulation
Patient already on Anticoagulation for Afib: Yes
- NYHA CHF Classification
NYHA CHF Classification Level: Class III - Symptoms w/ min exertion, interferes w/ nml daily activity
- ACC/AHA Stage
ACC/AHA Stage: Stage C: Symptomatic Heart Failure
== END 2024-11-13 15:27 | disposition home or self-care (01) | DRG 308 ==
LOC: IVU 18:23
PROVIDERS: Emergency Medicine; Physician Assistant; ADMITTING PHYSICIAN Internal Medicine; ATTENDING PHYSICIAN Nuclear Medicine Nuclear Cardiology; EMERGENCY PHYSICIAN Student in an Organized Health Care Education/Training Program; FAMILY PHYSICIAN Internal Medicine
DX: I48.3 Typical atrial flutter (principal); I50.31 Acute diastolic (congestive) heart failure; I13.0 Hypertensive heart and chronic kidney disease with heart failure and stage 1 through stage 4 chronic kidney disease, or unspecified chronic kidney disease; N18.32 Chronic kidney disease, stage 3b; E78.00 Pure hypercholesterolemia, unspecified; R53.1 Weakness; I95.9 Hypotension, unspecified; N26.1 Atrophy of kidney (terminal); K21.9 Gastro-esophageal reflux disease without esophagitis; J30.2 Other seasonal allergic rhinitis; J30.81 Allergic rhinitis due to animal (cat) (dog) hair and dander; I48.91 Unspecified atrial fibrillation; I25.10 Atherosclerotic heart disease of native coronary artery without angina pectoris; Z53.9 Procedure and treatment not carried out, unspecified reason; Z79.01 Long term (current) use of anticoagulants; I25.2 Old myocardial infarction; Z95.5 Presence of coronary angioplasty implant and graft; Z85.46 Personal history of malignant neoplasm of prostate; Z90.79 Acquired absence of other genital organ(s); Z87.891 Personal history of nicotine dependence; Z86.79 Personal history of other diseases of the circulatory system; Z91.048 Other nonmedicinal substance allergy status; Z79.82 Long term (current) use of aspirin
CPT/HCPCS: 71046; 80048; 80053; 83735; 83880; 84443; 84484; 85025; 93005; 93306; 96365; 96366; 96375; 99285

== ENCOUNTER 2025-01-27 06:53 | Inpatient (IN) | payer MEDICARE, SELFPAY ==
[2025-01-16 09:37] VITALS: BMI 27.7
[2025-01-16 10:15] LABS: Hematocrit 40.3 % (39.0-52.0); Hemoglobin 13.2 g/dL (13.0-18.0); Mean Corp Hgb Conc. 32.8 g/dL (33.0-37.0); Mean Corpuscular Volume 90.2 fL (80.0-94.0); Nucleated Red Blood Cells % 0 % (-); Platelet Count 175 10^3/uL (130-400); Red Cell Dist. Width 13.8 % (11.5-14.5)
[2025-01-16 10:25] LABS: INR 1.26; PT 16.3 Sec (11.4-14.6)
[2025-01-16 10:26] LABS: APTT 32.6 Sec (23.4-35.0)
[2025-01-16 10:29] LABS: Blood Urea Nitrogen 20 mg/dl (9-20); Calcium 9.6 mg/dl (8.4-10.2); Carbon Dioxide 29 mmol/L (22-30); Chloride 106 mmol/L (98-107); Estimated Creatinine Clearance 44 ml/min; Glucose 98 mg/dl (70-99); Potassium 4.7 mmol/L (3.5-5.1); Sodium 141 mmol/L (135-145); eGFR 42.04
[2025-01-27] VITALS (10 sets, daily range): BP systolic 109–155; BP diastolic 69–90; BMI 26.7
--- NOTE | 2025-01-27 07:39 | HP.FOC2 ---
Focused History & Physical
Chief Complaint
HPI:
Chief Complaint: Endoleak
HPI / Indication for Planned Procedure: 71-year-old male with past medical history significant for AAA, GERD, hypercholesterolemia, hypertension, MO with stenting, emphysema, prostate cancer, CKD 3, atrophic right kidney, A-fib here today for
planned endovascular repair right type Ib endoleak with iliac limb extension with Dr. Ivan. Patient presents at baseline health with no recent illness or trauma. Patient agreeable to proceed with planned procedure today.
AAA repair 2020 at [facility]
Relevant Past Medical History: Other (AAA, GERD, hypercholesterolemia, hypertension, MO with stenting, emphysema, prostate cancer, CKD 3, atrophic right kidney, A-fib)
Relevant Social History: Negative
Relevant Family History: Negative
Relevant Past Surgical History: Positive for (Prostatectomy, AAA repair 2020, multiple orthopedic repairs at [place], spine surgery at [place])
Review of Systems
Review of Pertinent Systems: All Systems Negative
Medication
See Medication form for detailed medications: Yes
Medication List (including Herbals & OTC):
omeprazole 20 mg capsule,delayed release 20 mg PO DAILY 01/18/11
loratadine 10 mg tablet 10 mg PO DAILY 03/18/19
atorvastatin 40 mg tablet 40 mg PO QPM 10/25/23
cholecalciferol (vitamin D3) 50 mcg (2,000 unit) tablet (Vitamin D3) 50 mcg PO QPM 10/25/23
coenzyme Q10 100 mg capsule (CoQ-10) 300 mg PO DAILY 10/25/23
ezetimibe 10 mg tablet 10 mg PO DAILY 10/25/23
Prevagen 1 cap PO DAILY 11/12/24
albuterol sulfate 90 mcg/actuation aerosol inhaler (Ventolin HFA) 2 puff inhalation R Q4HPRN PRN sob 11/12/24
aspirin 81 mg tablet,delayed release 81 mg PO DAILY 11/12/24
multivitamin 1 tab PO QPM 11/12/24
amiodarone 200 mg tablet 200 mg PO DAILY #30 tabs 11/13/24
apixaban 5 mg tablet (Eliquis) 5 mg PO BID #60 tabs 11/13/24
azilsartan medoxomil 40 mg tablet (Edarbi) 20 mg (1/2 x 40 mg) PO QPM #0 tabs 11/13/24
metoprolol succinate 25 mg tablet,extended release 24 hr 12.5 mg (1/2 x 25 mg) PO DAILY #30 tabs 11/13/24
Medications Reviewed: Yes
Allergies and Reactions
Patient has Allergies: Yes
Noted Allergies and Reactions:
Allergy/AdvReac Type Severity Reaction Status Date / Time
adhesive tape Allergy BLISTERS Verified 01/27/25 07:25
cat dander Allergy Hives Verified 01/27/25 07:25
pollen extracts Allergy SEASONAL-Nasal Verified 01/27/25 07:25
congestion,
itchy eyes
Pertinent Physical Exam
All Other Systems: Negative
Head/Neck: Normal
Lungs: Normal
Heart: Normal
Abdomen: Normal
Extremities: Normal (DP bilateral but still)
Neurological: Normal
Diagnosis / Assessment
AAA with endoleak
Plan / Procedure
Planned endovascular repair right type Ib endoleak with iliac limb extension using Cook by Dr. Ivan
Anesthesia/Sedation to be done by Anesthesia Provider: Yes
[2025-01-27] MEDS: EMEND 40 MG PO (08:03)
[2025-01-27] MEDS: PERIDEX 0.12% ORAL RINSE 15 ML PO (08:04)
[2025-01-27] MEDS: BACTROBAN NASAL 1 GRAM NASAL (08:05)
--- NOTE | 2025-01-27 08:53 | W.SUR.PREOP ---
Pre-Operative Surgical Note
-
I have examined this patient prior to the performance of the scheduled procedure.
The patient's condition is unchanged from the time of the current History and
Physical and the patient is able to undergo the scheduled procedure.
[2025-01-27 10:04] LABS: ACT-LR - POC 276 Seconds (116-155)
[2025-01-27 10:45] LABS: ACT-LR - POC 269 Seconds (116-155)
--- NOTE | 2025-01-27 11:14 | W.SUR.POST ---
Surgical Immediate Post Op
Note
Pre Op Diagnosis: Type Ib endoleak
Post Op Diagnosis: Type Ib endoleak
Procedure Performed: Angiogram and repair of Type Ib endoleak
Primary Surgeon: Tirso Ivan MD
Secondary Surgeons: Thomas Whitfield
Anesthesia: General - per anesthesia
Estimated Blood Loss: 30 cc
Fluids: Per anesthesia
Drains/Shunts: None
Specimens/Cultures: None
Doppler/Duplex/Angio (Y/N): Yes, angio
Complications: None
Operative Findings: Angiogram via bilateral MANAGER FOREIGN access, relining of right common iliac artery proximally and then distally with a [employer] Zbis branch device into the external and internal iliac arteries.No further endoleak observed on completion
angiogram.
--- NOTE | 2025-01-27 11:18 | CON.INTV ---
Consultation
Consultation Request
Date/Time Consultation Requested: 01/27/2025 - 1047
Date/Time Consultation Performed: 01/27/2025 - 1107
Requesting Provider: JL Clark
Performing Provider: Dr. Guerra
Reason for Consultation: s/p endoleak repair of AAA stent graft
Medical History
-
Chief Complaint: Elective aortic endoleak repair
History of Present Illness:
74-year-old male with a past medical history of abdominal aortic aneurysm s/p aortic graft repair complicated by type Ib endoleak, COPD/asthma, hypertension, history of MO s/p stents, history of prostate cancer s/p prostatectomy, CKD, GERD,
hypercholesteremia and hypertension who presents for elective endoleak repair. Patient previously had an abdominal aortic aneurysm aortobiiliac stent grafting at an outside hospital. This was complicated by right iliac limb migration and
terminates in the distal portion of the aortic aneurysm sac. He is known to vascular surgery with last visit on 01/[address] Ivan. Endoleak repair was discussed in detail and he agreed to this procedure. Today he underwent repair of right
iliac type Ib endoleak using Cook iliac branch device and stenting of his right internal iliac artery. There were no complications, with EBL <20 cc. He was transferred to the ICU postoperatively and Vice President Of Advertising services consulted for additional
management/recommendations.
When I saw the patient he was resting in bed in no acute distress. Denies SOB, abdominal pain, chest pain, fevers or chills. Heart rate currently 73, BP via right radial A-line: 188/84, and saturating 97% on room air.
PMHx: COPD/asthma, former tobacco smoker, CAD s/p stent, hypertension, hyperlipidemia, GERD, osteoarthritis, history of prostate cancer, CKD
PSHx: Right TKA, right VANESSA, spinal surgery, right shoulder TSA, left VANESSA, prostatectomy, coronary stents placed (), AAA repair (2020)
Past Medical History
Past Medical History: Other (Above as per HPI)
Past Surgical History: Other (Above as per HPI)
Social History
Tobacco: Former Smoker (89-fgad-afmy history, quit 2019)
Alcohol: Other (Rarely)
Drug: None
Personal:
Living: With Family
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
Family History
Family History: CAD (Father + mother), Cancer (Maternal uncle: Prostate cancer), Hypertension (Mother) and Other (Mother: history of AAA repair + kidney failure; Maternal uncle: history of AAA)
Allergies / Home Medications
Allergies
Allergy/AdvReac Type Severity Reaction Status Date / Time
adhesive tape Allergy BLISTERS Verified 01/27/25 07:25
cat dander Allergy Hives Verified 01/27/25 07:25
pollen extracts Allergy SEASONAL-Nasal Verified 01/27/25 07:25
congestion,
itchy eyes
Home Medications
�Medication �Instructions �Recorded �Confirmed �Last Taken �Type
omeprazole 20 mg capsule,delayed 20 mg PO DAILY Gastrointestinal 01/18/11 01/27/25 01/26/25 05:00 History
release Issue
loratadine 10 mg tablet 10 mg PO DAILY Allergies 03/18/19 01/27/25 01/26/25 05:00 History
atorvastatin 40 mg tablet 40 mg PO QPM High Cholesterol 10/25/23 01/27/25 01/26/25 17:00 History
cholecalciferol (vitamin D3) 50 50 mcg PO QPM Supplement 10/25/23 01/27/25 01/26/25 17:00 History
mcg (2,000 unit) tablet (Vitamin
D3)
coenzyme Q10 100 mg capsule 300 mg PO DAILY Supplement 10/25/23 01/27/25 01/26/25 05:00 History
(CoQ-10)
ezetimibe 10 mg tablet 10 mg PO DAILY High Cholesterol 10/25/23 01/27/25 01/26/25 17:00 History
Prevagen 1 cap PO DAILY Supplement 11/12/24 01/27/25 1 Week Ago History
~01/20/25
albuterol sulfate 90 mcg/actuation 2 puff inhalation R Q4HPRN PRN sob 11/12/24 01/27/25 2 Months Ago History
aerosol inhaler (Ventolin HFA) ~11/26/24
aspirin 81 mg tablet,delayed 81 mg PO DAILY Blood Clot 11/12/24 01/27/25 01/27/25 05:00 History
release Prevention/Tx
multivitamin 1 tab PO QPM Supplement 11/12/24 01/27/25 01/26/25 17:00 History
amiodarone 200 mg tablet 200 mg PO DAILY #30 tabs 11/13/24 01/27/25 01/27/25 05:00 Rx
apixaban 5 mg tablet (Eliquis) 5 mg PO BID #60 tabs 11/13/24 01/27/25 01/25/25 21:00 Rx
azilsartan medoxomil 40 mg tablet 20 mg (1/2 x 40 mg) PO QPM #0 tabs 11/13/24 01/27/25 01/26/25 17:00 Rx
(Edarbi)
metoprolol succinate 25 mg 12.5 mg (1/2 x 25 mg) PO DAILY #30 11/13/24 01/27/25 01/27/25 05:00 Rx
tablet,extended release 24 hr tabs
Review of Systems
-
History Source: Patient
All other systems: Negative unless noted
Vitals / Labs / Diagnostic Testing
Vital Signs
Temp Pulse Resp BP Pulse Ox
97.0 F 57 17 140/69 97
01/27/25 16:00 01/27/25 16:49 01/27/25 16:42 01/27/25 16:49 01/27/25 16:42
Lab Data
01/27/25 12:51
01/27/25 12:51
Laboratory Results
01/27/25
12:51
PT 14.8 H
INR 1.13
APTT 35.2 H
Diagnostic Testing:
Physical Exam
-
HEENT: Normocephalic and Anicteric
Cardiovascular: S1/S2 and Peripheral Edema (negative)
Respiratory: Wheeze (negative), Rales (negative), Rhonchi (negative) and Non-Labored Respirations
GI: Soft, Non Distended, Non Tender and Normal Bowel Sounds
Neurology: AO x 3 and Tremors (negative)
Skin: Warm and Dry
General: Respiratory Distress (negative), Comfortable, Fever (negative) and Chills (negative)
Assessment
-
Assessment: 74-year-old male with a past medical history of abdominal aortic aneurysm s/p aortic graft repair complicated by type Ib endoleak, COPD/asthma, hypertension, history of [place] s/p stents, history of prostate cancer s/p prostatectomy, CKD,
GERD, hypercholesteremia and hypertension who presents for elective endoleak repair. Patient previously had an abdominal aortic aneurysm aortobiiliac stent grafting at an outside hospital. This was complicated by right iliac limb migration and
terminates in the distal portion of the aortic aneurysm sac. He is known to vascular surgery with last visit on 01/[address] Ivan. Endoleak repair was discussed in detail and he agreed to this procedure. On 01/27/2025, he underwent repair of
right iliac type Ib endoleak using Cook iliac branch device and stenting of his right internal iliac artery. There were no complications, with EBL <20 cc. He was transferred to the ICU postoperatively and Vice President Of Advertising services consulted for
additional management/recommendations.
Chronic conditions MAKE UP ARRANGER: COPD/asthma, former tobacco smoker, CAD s/p stent, hypertension, hyperlipidemia, GERD, osteoarthritis, history of prostate cancer, CKD
Impression:
#History of AAA s/p repair with known type Ib endoleak of aortic graft from right iliac limb s/p repair using Cook iliac branch device with right internal iliac artery stenting (POD #0)
#Acute anemia
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
#Former tobacco smoker (75-peie-abxi history, quit 2019)
#CAD
#Paroxysmal A-fib on amiodarone + Eliquis
#Hypertension
#Nonrheumatic mitral regurgitation
#CKD
Plan:
Postoperative surgical intensive care unit monitoring
Supplemental oxygen as needed to maintain SpO2 88-95%
Of note, patient follows with us in the pulmonary office with Dr. Castro, last visit 07/22/2024. He was advised to see us in 1 year
prn nebulized bronchodilators - currently not bronchospastic
Incentive spirometry encouraged 10x per hour for at least 4 hrs a day
Aspiration precautions
Pain control
Neuro and vascular checks per protocol
Maintain MAP>65
Replete electrolytes with K>4, Mg>2
Maintain euglycemia with goal BG 140-180
Vascular surgery following-correspondence and operative notes reviewed
Transfuse blood products as needed to keep Hb>7g/dL, and plt>50k (given post-operative status)
DVT prophylaxis
Early nutrition
Early mobilization
Critical care statement: A total of 44 minutes of critical care time was provided for this patient today. This includes management of unstable vital signs, evaluation of the patient at bedside, reviewing the patient's pertinent medical records
including radiographs, microbiology, laboratory evaluations, and discussion with primary team, consultants, pharmacy, nutrition, physical therapy, case management, charge nurse, critical care nursing, and respiratory therapy.
--- NOTE | 2025-01-27 12:00 | PTCARENOTE ---
Pt rec'd into ICU 3370 from PACU, pulse check completed in tandem with RN WILTON. Pedal pulses easily palpable, groin sites CDI with surgical adhesive present. See worklist for neurovascular checks. Pt is AOx3 with no complaints, arrived with simple
mask 6L in place, sats 100%. Right radial [place] in place, leveled and zeroed, correlates with non invasive cuff. Orders reviewed, admission and assessment completed. Pt ordered to lay flat until 13:10, then allowed to sit at 30 degrees for next 4
hours. Pt and oriented to room and plan of care. Both verbalized understanding. Pt AOx3 with no complaints. Call vargas in reach. Safe environment maintained.
[2025-01-27] MEDS: NSS 1000 IV (12:22)
[2025-01-27 12:31] LABS: Glucose - Point of Care 108 mg/dl (70-99)
[2025-01-27 13:17] LABS: Hematocrit 36.4 % (39.0-52.0); Hemoglobin 12.2 g/dL (13.0-18.0); INR 1.13; Mean Corp Hgb Conc. 33.5 g/dL (33.0-37.0); Mean Corpuscular Volume 89.2 fL (80.0-94.0); Nucleated Red Blood Cells % 0 % (-); PT 14.8 Sec (11.4-14.6); Platelet Count 141 10^3/uL (130-400); Red Cell Dist. Width 13.9 % (11.5-14.5)
[2025-01-27 13:18] LABS: APTT 35.2 Sec (23.4-35.0)
[2025-01-27 13:19] LABS: ALT (SGPT) 19 U/L (0-50); AST (SGOT) 21 U/L (17-59); Albumin 3.7 g/dl (3.5-5.0); Alkaline Phosphatase 66 U/L (38-126); Blood Urea Nitrogen 21 mg/dl (9-20); Calcium 8.7 mg/dl (8.4-10.2); Carbon Dioxide 25 mmol/L (22-30); Chloride 107 mmol/L (98-107); Estimated Creatinine Clearance 53 ml/min; Glucose 117 mg/dl (70-99); Potassium 4.6 mmol/L (3.5-5.1); Sodium 137 mmol/L (135-145); Total Protein 6.1 g/dl (6.3-8.2); eGFR 53.07
--- NOTE | 2025-01-27 16:00 | OR.RPT ---
Operative Report
Operative Report
Date of Operation: 01/27/2025
Pre Op Diagnosis:
1. Type Ib endoleak, right iliac limb
2. Abdominal aortic aneurysm with prior aortobiiliac stent grafting at an outside hospital
Post Op Diagnosis:
1. Type Ib endoleak, right iliac limb
2. Abdominal aortic aneurysm with prior aortobiiliac stent grafting at an outside hospital
Procedure:
1. Repair of right iliac type Ib endoleak using Cook iliac branch device:
[id number]
[id number] (right iliac bridging piece)
2. Stenting of right internal iliac artery as part of the iliac branch repair (10 mm x 38 mm iCAST)
3. Ultrasound-guided percutaneous access to the bilateral common femoral arteries
4. Bilateral Pro-glide closure to femoral artery access
Fluoroscopy:
39.5 minutes
1894 mGy
DAP 558.77
Surgeon: Tirso Ivan III, MD
Heel Sander: Thomas Whitfield MD PhD PGY-7
Anesthesia: General
Complications: None
Estimated Blood Loss: Less than 20 cc
History and Indications for Procedure: 74-year-old male with prior aortic stent grafting for AAA. He developed a distal type Ib endoleak from the right iliac limb. He was brought to the operating room for endovascular intervention with planned
preservation of the right iliac bifurcation using Cook iliac branch device
Procedure in Detail: Wei Lynn was correctly identified and placed supine on the operating table. After adequate induction of anesthesia his abdomen, pelvis and bilateral groins were prepped and draped in usual sterile fashion. He received
preoperative antibiotics. A time out procedure was performed with the nursing and anesthesia staff confirming the patient's identity as well as the nature and laterality of the procedure.
Under ultrasound guidance we accessed the bilateral common femoral arteries with micropuncture needles. We then upsized to 5 Nicaraguan sheaths. 2 offset Pro-glide closure devices were placed bilaterally. 8 [place]araguan sheaths were then placed
bilaterally.
Systemic heparin was administered. On the left over an Amplatz wire I placed a 16 [place]araguan dry seal sheath and advanced this to the flow divider of the aortic stent graft. On the right the Bentson wire and KMP catheter were advanced into the
proximal descending thoracic aorta. We then exchanged out for a Lunderquist wire.
We then brought onto the field the Zenith iliac branch device, [id number]. This was oriented correctly outside of the body this was then loaded in the correct orientation on the right femoral Lunderquist wire and brought into position under
radiographic guidance. The iliac branch device was advanced up to the flow divider and then partially unsheathed to expose the catheter in the main body of the aortic stent graft. Through the 16 Nicaraguan sheath on the left a long 8 Nicaraguan sheath was
advanced into the main body of the aortic stent graft. The snare device was then inserted through the 8 Nicaraguan sheath and deployed in the main body of the aortic stent graft. A Glidewire was then advanced through the catheter on the outside of the
iliac branch device. The wire was successfully snared and pulled out the contralateral side. The Glidewire length was made equal on both sides and hemostats were placed on both sides of the wire. The iliac branch device was positioned so that the
internal iliac gate marker was in the proper position about a centimeter proximal to the internal iliac artery origin. The iliac branch device was then deployed to the internal iliac gate. While keeping attention on the through and through
Glidewire I advanced the 8 Nicaraguan sheath up and over the flow divider and into the internal iliac artery gate. We then obtained separate access to the 8 [place]araguan up and over sheath. Using a KMP and Glidewire we selected the right internal iliac
artery and advanced the wire and catheter into a distal branch. Arteriogram confirmed proper position in the internal iliac artery. We then exchanged out for a Leach wire. The through and through Glidewire was then removed. Under roadmap
guidance I then advanced a 10 mm x 38 mm iCAST stent into the desired location in the right internal iliac artery while achieving adequate positioning/overlap in the internal iliac branch of the ZBIS device. The iCAST was inflated to nominal
pressure. While the iCAST balloon was inflated the remaining deployment of the iliac branch device was completed. The iliac branch device delivery system was then removed from the sheath. We then followed this with an iliac bridging piece which
was a [id number]. This was brought into the desired location over the right femoral Lunderquist wire and deployed under radiographic guidance. I then followed this with a Coda balloon and ballooned the proximal overlap seal zone as well as the
distal seal zone in the external iliac artery.
The Leach wire and 12 Nicaraguan sheath were removed from the right iliac limb and pulled back to the aortic main body. The pigtail catheter was inserted over the right femoral Lunderquist wire to the proximal end of the aortic stent graft. A
completion arteriogram revealed an excellent technical result. The aortoiliac stent was patent. The right iliac limb was widely patent with brisk flow. The right external and internal iliac arteries were widely patent with brisk flow. No
endoleak was identified. The left iliac limb was patent with brisk flow.
Satisfied with this result we then concluded the procedure. The sheaths were removed over wires 1 at a time. The Pro-glide knots were secured bilaterally. Hemostasis was achieved bilaterally. Protamine was administered. Skin glue was applied to
the access sites bilaterally.
Patient tolerated the procedure well and awoke from general anesthesia with no immediate complications. He was taken to the recovery room in stable condition.
Attestation: I was present and responsible for the entire procedure
Signed:
Tirso Ivan III, MD
Vascular Surgery
[facility]
--- NOTE | 2025-01-27 16:35 | PTCARENOTE ---
BP 169/88 pulled over in error, not an accurate reading.
[2025-01-27] MEDS: COZAAR 25 MG PO (16:49)
[2025-01-27] MEDS: THERAGRAN 1 TABLET PO (16:49)
[2025-01-27] MEDS: LIPITOR 40 MG PO (16:50)
[2025-01-27] MEDS: VITAMIN D3 (cholecalciferol) 50 MCG PO (16:50)
[2025-01-27] MEDS: ELIQUIS 5 MG PO (20:55)
[2025-01-27] MEDS: APRESOLINE 10 MG IV (21:36)
[2025-01-28] MEDS: NSS 1000 IV (00:40)
--- NOTE | 2025-01-28 02:52 | PTCARENOTE ---
01/27/25 - received pt from dayshift, patient sitting up in bed with at bedside, finished 100% of dinner, no c/o nausea. patient offers no c/o pain or discomfort. patient to remain in bed until monday. groin inc. CATHERINE, no s/s of swelling,
edema, warmth or redness. + pedal pulses, no numbness or tingling to b/l lower ext.
[2025-01-28 04:33] VITALS: BP 161/82
[2025-01-28 05:10] LABS: Hematocrit 35.1 % (39.0-52.0); Hemoglobin 12.0 g/dL (13.0-18.0); Mean Corp Hgb Conc. 34.2 g/dL (33.0-37.0); Mean Corpuscular Volume 87.3 fL (80.0-94.0); Platelet Count 165 10^3/uL (130-400); Red Cell Dist. Width 13.9 % (11.5-14.5)
[2025-01-28 05:34] LABS: Blood Urea Nitrogen 21 mg/dl (9-20); Calcium 9.1 mg/dl (8.4-10.2); Carbon Dioxide 23 mmol/L (22-30); Chloride 107 mmol/L (98-107); Estimated Creatinine Clearance 53 ml/min; Glucose 136 mg/dl (70-99); Magnesium 2.2 mg/dl (1.6-2.3); Potassium 4.5 mmol/L (3.5-5.1); Sodium 138 mmol/L (135-145); eGFR 53.07
[2025-01-28 06:00] VITALS: BMI 26.8
[2025-01-28] MEDS: TYLENOL 650 MG PO (07:38)
[2025-01-28] MEDS: PROTONIX 20 MG PO (07:38)
[2025-01-28] MEDS: ZETIA 10 MG PO (07:38)
[2025-01-28] MEDS: PACERONE 200 MG PO (07:38)
[2025-01-28] MEDS: TOPROL XL 12.5 MG PO (07:38)
[2025-01-28] MEDS: ASPIR LOW (ENTERIC COATED) 81 MG PO (07:39)
[2025-01-28] MEDS: ELIQUIS 5 MG PO (07:39)
[2025-01-28] MEDS: CLARITIN 10 MG PO (07:39)
--- NOTE | 2025-01-28 07:58 | W.PN.INTV ---
Today's Communication / Plan
Recommendations
Pain control
Up OOB as tolerated
Outpatient follow-up vascular surgery
Patient is being prepared for discharge home today. Outpatient follow-up with our office with Dr.. Castro. No additional recommendations at this time. Beverage Steward/Pulmonary service will now sign off. Please reconsult if there are any additional
questions/concerns, or if patient's respiratory status deteriorates.
Assessment
-
Assessment: 74-year-old male with a past medical history of abdominal aortic aneurysm s/p aortic graft repair complicated by type Ib endoleak, COPD/asthma, hypertension, history of [place] s/p stents, history of prostate cancer s/p prostatectomy, CKD,
GERD, hypercholesteremia and hypertension who presents for elective endoleak repair. Patient previously had an abdominal aortic aneurysm aortobiiliac stent grafting at an outside hospital. This was complicated by right iliac limb migration and
terminates in the distal portion of the aortic aneurysm sac. He is known to vascular surgery with last visit on 01/[address] Ivan. Endoleak repair was discussed in detail and he agreed to this procedure. On 01/27/2025, he underwent repair of
right iliac type Ib endoleak using Cook iliac branch device and stenting of his right internal iliac artery. There were no complications, with EBL <20 cc. He was transferred to the ICU postoperatively and Beverage Steward services consulted for
additional management/recommendations.
Chronic conditions OIL SPECULATOR: COPD/asthma, former tobacco smoker, CAD s/p stent, hypertension, hyperlipidemia, GERD, osteoarthritis, history of prostate cancer, CKD
Impression:
#History of AAA s/p repair with known type Ib endoleak of aortic graft from right iliac limb s/p repair using Cook iliac branch device with right internal iliac artery stenting (POD #1)
#Acute anemia
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
#Former tobacco smoker (52-miyb-cxbr history, quit 2019)
#CAD
#Paroxysmal A-fib on amiodarone + Eliquis
#Hypertension
#Nonrheumatic mitral regurgitation
#CKD
Plan:
Postoperative surgical intensive care unit monitoring
Supplemental oxygen as needed to maintain SpO2 88-95%
Of note, patient follows with us in the pulmonary office with Dr. Castro, last visit 07/22/2024. He was advised to see us in 1 year
prn nebulized bronchodilators - currently not bronchospastic
Incentive spirometry encouraged 10x per hour for at least 4 hrs a day
Aspiration precautions
Pain control
Neuro and vascular checks per protocol
Maintain MAP>65
Replete electrolytes with K>4, Mg>2
Maintain euglycemia with goal BG 140-180
Vascular surgery following-correspondence and operative notes reviewed
Transfuse blood products as needed to keep Hb>7g/dL, and plt>50k (given post-operative status)
DVT prophylaxis - Eliquis
Early nutrition
Early mobilization
Patient is being prepared for discharge home today. Outpatient follow-up with our office as stated above. No additional recommendations at this time. Beverage Steward/Pulmonary service will now sign off. Thank you for allowing us to be involved in
the care of this patient. Please reconsult if there are any additional questions/concerns, or if patient's respiratory status deteriorates.
Total time spent today was 43 minutes for this encounter. Time includes reviewing laboratory test/imaging results, reviewing pertinent medical records, obtaining and reviewing medical history, performing an appropriate exam, ordering medications,
tests and procedures. Time also includes documentation of this encounter, coordinating patient care and communicating with other healthcare professionals. Total time does not include separately billed tests performed on this date of service.
Subjective Dataa
Subjective Data
Date of Service:
Date of Service: January 28, 2025
Chief Complaint: Beverage Steward Follow Up
Subjective:
Patient was seen and evaluated this morning. Heart rate 55, BP 125/76 and breathing has been on room air. Planning to be discharged today.
Review of Systems
General: Other (Negative unless mentioned above)
Objective Data
Data Reviewed
Vital Signs / I&O / Oxygen:
Vital Signs
Temp Pulse Resp BP Pulse Ox
97.6 F 70 14 150/79 95
01/28/25 07:45 01/28/25 10:00 01/28/25 10:00 01/28/25 09:24 01/28/25 07:00
Intake and Output
01/27/25 01/28/25 01/29/25
06:59 06:59 06:59
Intake Total 1258 / 1258
Output Total 375 / 375
Balance 883 / 883
SaO2 95
Nasal Cannula flow liters per 6
minute
Physical Exam
General: Respiratory Distress (negative), Comfortable, Chills (negative) and Sweats (negative)
HEENT: Normocephalic and Anicteric
Cardiovascular: S1-S2, Regular Rhythm and Peripheral Edema (negative)
Respiratory: Clear, Wheeze (negative), Crackles (negative), Rhonchi (negative) and Non-Labored Respirations
GI: Soft, Non Distended, Non Tender and Normal Bowel Sounds
Neurology: AO x 3 and Tremors (negative)
Skin: Warm, Dry, Cyanosis (negative) and Jaundice (negative)
Labs/Micro/Reports
Lab Data
01/28/25 04:34
01/28/25 04:34
Laboratory Results
01/27/25
12:51
PT 14.8 H
INR 1.13
APTT 35.2 H
--- NOTE | 2025-01-28 08:27 | W.PN.VS ---
Today's Communication / Plan
-
Patient seen and examined at bedside with Dr. Tirso Ivan III, below plan reviewed with attending.
Assessment/Plan
-
Assessment: 74 year old male POD#1 Repair of right iliac type Ib endoleak using Cook iliac branch device
Plan:
Discontinue IV fluids
Discontinue arterial line
OBB to chair with progression to ambulation as tolerated
Continue home anticoagulation
Discharge today
Subjective Data
-
Date of Service: January 28, 2025
Patient seen and examined at bedside, offers no complaints. Tolerating PO diet. Reports urinating without difficulty.
Objective Data
-
Vital Signs
Temp Pulse Resp BP Pulse Ox
97.6 F 55 15 161/82 95
01/28/25 07:45 01/28/25 07:00 01/28/25 07:00 01/28/25 04:33 01/28/25 07:00
Intake and Output
01/27/25 01/28/25 01/29/25
06:59 06:59 06:59
Intake Total 1258 / 1258
Output Total 375 / 375
Balance 883 / 883
Intake:
Oral fluids 598 / 598
IV fluids (Total) 660 / 660
Normosol 100 / 100
Nss 1,000 ml @ 80 mls/hr IV . 560 / 560
[id number] FLACA Rx#:[id number]
Output:
Urine, Ivan 200 / 200
Urine, Voided 175 / 175
Lab Results
01/28/25 04:34
01/28/25 04:34
Calcium 9.1 mg/dl (8.4-10.2) 01/28/25 04:34
Magnesium 2.2 mg/dl (1.6-2.3) 01/28/25 04:34
Total Bilirubin 0.6 mg/dl (0.2-1.3) 01/27/25 12:51
AST 21 U/L (17-59) 01/27/25 12:51
ALT 19 U/L (0-50) 01/27/25 12:51
Alkaline Phosphatase 66 U/L (38-126) 01/27/25 12:51
Total Protein 6.1 g/dl (6.3-8.2) L 01/27/25 12:
Albumin 3.7 g/dl (3.5-5.0) 01/27/25 12:51
Physical Exam
-
No apparent distress, resting in bed comfortably
No tachycardia
No dyspnea on room air
ABD non-tender, non-distended
BL groin puncture site clean, dry, and intact, no evidence of hematoma, all surrounding compartments soft
BL DP +2 palpable
[2025-01-28 09:24] VITALS: BP 150/79
--- NOTE | 2025-01-28 10:34 | PTCARENOTE ---
A-line and IVF d/c'd. Ambulated in hallway with steady gait.
[2025-01-28 10:58] VITALS: BP 125/76
--- NOTE | 2025-01-28 11:41 | W.DS.TRANS ---
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
-
Discharge Instructions:
Sleep Apnea Risk Intermediate
Discharge Diagnosis/Procedures Repair of right iliac type Ib endoleak using
Cook iliac branch device
Stenting of right internal iliac artery as part
of the iliac branch repair
Bilateral Pro-glide closure to femoral artery
access
Diet As tolerated
Activity No strenuous activity
Driving Restrictions No driving for 24 hours
Bathing Restrictions OK to Shower
Instructions:
Stand-Alone Forms: Vascular Surg Discharge Instr
Changes to Home Medications: No
Discharge Medications:
DC Medications w/original date entered in [employer]
omeprazole 20 mg capsule,delayed release 20 mg PO DAILY Gastrointestinal Issue 01/18/11
loratadine 10 mg tablet 10 mg PO DAILY Allergies 03/18/19
atorvastatin 40 mg tablet 40 mg PO QPM High Cholesterol 10/25/23
cholecalciferol (vitamin D3) 50 mcg (2,000 unit) tablet (Vitamin D3) 50 mcg PO QPM Supplement 10/25/23
coenzyme Q10 100 mg capsule (CoQ-10) 300 mg PO DAILY Supplement 10/25/23
ezetimibe 10 mg tablet 10 mg PO DAILY High Cholesterol 10/25/23
Prevagen 1 cap PO DAILY Supplement 11/12/24
albuterol sulfate 90 mcg/actuation aerosol inhaler (Ventolin HFA) 2 puff inhalation R Q4HPRN PRN sob 11/12/24
aspirin 81 mg tablet,delayed release 81 mg PO DAILY Blood Clot Prevention/Tx 11/12/24
multivitamin 1 tab PO QPM Supplement 11/12/24
amiodarone 200 mg tablet 200 mg PO DAILY #30 tabs 11/13/24
apixaban 5 mg tablet (Eliquis) 5 mg PO BID #60 tabs 11/13/24
azilsartan medoxomil 40 mg tablet (Edarbi) 20 mg (1/2 x 40 mg) PO QPM #0 tabs 11/13/24
metoprolol succinate 25 mg tablet,extended release 24 hr 12.5 mg (1/2 x 25 mg) PO DAILY #30 tabs 11/13/24
Home Medication Changes
Pending Results: No
[2025-01-28 12:31] VITALS: BP 146/82
--- NOTE | 2025-01-28 12:39 | CM ---
Initial assessment completed with patient with in room. Patient lives with his and 1 adult granddaughter in a 2 story home with B/B on 2nd, 1/2 bath on 1st, 2 steps to enter. 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 In
the home is a SPC, quad cane, w/ch, RW, crutches and RTS. No in-home services. No VA benefits. No psychiatric admissions. No HC POA. PCP is Dr. Charles Stewart. Pharmacy is [facility] on [address] in [place]. Discharge POC: Home with no needs.
--- NOTE | 2025-01-28 12:47 | CM ---
Patient has been medically cleared for discharge to home with no additional skilled services. will transport home. Admission IMM within the 48 hour time frame of discharge.
--- NOTE | 2025-01-28 13:00 | PTCARENOTE ---
Pt discharged to home with . Reviewed all discharge instructions and meds with pt and . IV's and tele monitor d/c'd.
--- NOTE | 2025-01-30 14:51 | W.DCSUMMARY ---
Discharge Summary
Discharge Data
Date of Admission: 01/27/25
Date of Discharge: 01/28/25
-
Pending Results: No
Hospital Course
Attending: Tirso Ivan III
Consultants: Pulmonary medicine
Allergies: Adhesive tape, cat dander, pollen extracts
Procedure with date:
1. Repair of right iliac type Ib endoleak using Cook iliac branch device:
[id number]
[id number] (right iliac bridging piece)
2. Stenting of right internal iliac artery as part of the iliac branch repair (10 mm x 38 mm iCAST)
3. Ultrasound-guided percutaneous access to the bilateral common femoral arteries
4. Bilateral Pro-glide closure to femoral artery access
01/27/2025 Dr. Tirso Ivan III
History of present illness: The patient is an 74-year-old male with multiple medical conditions including: Abdominal aortic aneurysm, GERD, hypokalemia, hypertension, myocardial infarction with stenting, emphysema, prostate cancer, CKD stage III,
atrophic right kidney, and atrial fibrillation. Patient presented on 01/27/2025 for scheduled procedure with Dr. Tirso Ivna. Patient presented at baseline health with no reports of recent illness or trauma.
Hospital Course: Briefly, the patient underwent scheduled repair of right iliac type Ib endoleak without complications, and recovered in PACU. Following recovery phase one and two patient was transferred to intensive care unit per protocol for
continued hemodynamic monitoring. Thaw Shed Heater Tender consulted to aid in medical management from a critical care perspective. POD #1 (01/28/2025) Patient tolerating diet. Surgical bilateral groin puncture sites clean, dry, and intact. No evidence of
hematoma. Arterial line and IV fluids discontinued. Patient able to ambulate without difficulty or incident. Patient stable for discharge to home.
Prescriptions and follow up appointment are included in the DC summary lay out inspector note. All instructions were given to the patient in both written and verbal form and the patient expressed understanding.
Discharge Plan
-
Patient Disposition: Home (Routine Discharge)
Discharge Diagnosis/Procedures: Repair of right iliac type Ib endoleak using Cook iliac branch device
Stenting of right internal iliac artery as part of the iliac branch repair
Bilateral Pro-glide closure to femoral artery access
Condition: Good
Diet: As tolerated
Activity: No strenuous activity
Driving Restrictions: No driving for 24 hours
Bathing Restrictions: OK to Shower
Stand Alone Forms: Vascular Surg Discharge Instr
Referrals:
Marjorie Mena PA-C [Specified Professional Personl, Vascular Surgery] - 02/12/25 11:00 am
Referral Note: Vascular surgery office follow-up
Charles Stewart MD [Family Provider, Internal Medicine]
Prescriptions:
Continued
omeprazole 20 MG capsule,delayed release(DR/EC)
20 mg PO DAILY
loratadine 10 MG tablet
10 mg PO DAILY
atorvastatin 40 mg Tablet
40 mg PO QPM
ezetimibe 10 mg Tablet
10 mg PO DAILY
coenzyme Q10 [CoQ-10] 100 mg Capsule
300 mg PO DAILY
cholecalciferol (vitamin D3) [Vitamin D3] 50 mcg (2,000 unit) Tablet
50 mcg PO QPM
multivitamin Tablet
1 tab PO QPM
aspirin 81 mg Tablet,Delayed Release (Dr/Ec)
81 mg PO DAILY
albuterol sulfate [Ventolin HFA] 90 mcg/actuation Hfa Aerosol Inhaler
2 puff INHALATION R Q4HPRN PRN (Reason: sob)
Prevagen
1 cap PO DAILY
Eliquis 5 mg Tablet
5 mg PO BID Qty: 60 11RF
metoprolol succinate 25 mg Tablet Extended Release 24 Hr
12.5 mg PO DAILY Qty: 30 11RF
Rx Instructions:
hold for SBP<100
Edarbi 40 mg Tablet
20 mg PO QPM Qty: 0 0RF
amiodarone 200 mg tablet
200 mg PO DAILY Qty: 30 5RF
Rx Instructions:
Please take amiodarone 200mg twice daily for 4 weeks then decrease to 200mg daily! FILL SECOND
Discharge Orders:
Discharge Patient (As Directed); Ordered 01/28/25
Ordered By: Janay Krueger
Discharge Date and Time
Discharge Date/Time: 01/28/25 12:46
Print Language: GREEK
== END 2025-01-28 12:46 | disposition home or self-care (01) | DRG 269 ==
LOC: ICU 06:53
PROVIDERS: Nurse Practitioner Acute Care; ADMITTING PHYSICIAN Surgery Vascular Surgery; CONSULT PHYSICIAN Internal Medicine Critical Care Medicine; FAMILY PHYSICIAN Internal Medicine
PROC: 04V03DZ Restriction of Abdominal Aorta with Intraluminal Device, Percutaneous Approach (ICD-10-PCS; 2025-01-27)
PROC: 04703DZ Dilation of Abdominal Aorta with Intraluminal Device, Percutaneous Approach (ICD-10-PCS; 2025-01-27)
DX: T82.310A Breakdown (mechanical) of aortic (bifurcation) graft (replacement), initial encounter (principal); E78.00 Pure hypercholesterolemia, unspecified; N18.30 Chronic kidney disease, stage 3 unspecified; I12.9 Hypertensive chronic kidney disease with stage 1 through stage 4 chronic kidney disease, or unspecified chronic kidney disease; J43.2 Centrilobular emphysema; I71.40 Abdominal aortic aneurysm, without rupture, unspecified; I48.0 Paroxysmal atrial fibrillation; K21.9 Gastro-esophageal reflux disease without esophagitis; I25.10 Atherosclerotic heart disease of native coronary artery without angina pectoris; M19.90 Unspecified osteoarthritis, unspecified site; I34.0 Nonrheumatic mitral (valve) insufficiency; Y83.1 Surgical operation with implant of artificial internal device as the cause of abnormal reaction of the patient, or of later complication, without mention of misadventure at the time of the procedure; Y71.2 Prosthetic and other implants, materials and accessory cardiovascular devices associated with adverse incidents; Y92.9 Unspecified place or not applicable; Z96.643 Presence of artificial hip joint, bilateral; Z96.651 Presence of right artificial knee joint; I25.2 Old myocardial infarction; Z85.46 Personal history of malignant neoplasm of prostate; Z86.79 Personal history of other diseases of the circulatory system; Z79.82 Long term (current) use of aspirin; Z87.891 Personal history of nicotine dependence; Z95.5 Presence of coronary angioplasty implant and graft; Z80.42 Family history of malignant neoplasm of prostate; Z82.49 Family history of ischemic heart disease and other diseases of the circulatory system; Z84.1 Family history of disorders of kidney and ureter; Z91.048 Other nonmedicinal substance allergy status; Z90.79 Acquired absence of other genital organ(s)
CPT/HCPCS: 36245; 36415; 37236; 71045; 80048; 80053; 82962; 83735; 85025; 85027; 85610; 85730; 86850; 86900; 86901; 93005; C1760; C1769; C1894; C2628; Q9967

== ENCOUNTER → 2025-01-30 09:12 | Outpatient (REF) | payer MEDICARE, SELFPAY ==
[2025-01-30 12:29] LABS: Hematocrit 37.3 % (39.0-52.0); Hemoglobin 12.3 g/dL (13.0-18.0); Mean Corp Hgb Conc. 33.0 g/dL (33.0-37.0); Mean Corpuscular Volume 91.0 fL (80.0-94.0); Nucleated Red Blood Cells % 0 % (-); Platelet Count 171 10^3/uL (130-400); Red Cell Dist. Width 14.2 % (11.5-14.5)
[2025-01-30 12:47] LABS: ALT (SGPT) 20 U/L (0-50); AST (SGOT) 26 U/L (17-59); Albumin 4.0 g/dl (3.5-5.0); Alkaline Phosphatase 68 U/L (38-126); Blood Urea Nitrogen 18 mg/dl (9-20); Calcium 9.3 mg/dl (8.4-10.2); Carbon Dioxide 29 mmol/L (22-30); Chloride 104 mmol/L (98-107); Glucose 89 mg/dl (70-99); Potassium 4.5 mmol/L (3.5-5.1); Sodium 138 mmol/L (135-145); Total Protein 6.7 g/dl (6.3-8.2); eGFR 45.21
[2025-01-30 13:51] LABS: Folate 15.3 ng/ml (2.76-20); Vitamin B12 474 pg/ml (239-931)
== END ==
LOC: HWLAB 09:12
PROVIDERS: ATTENDING PHYSICIAN Internal Medicine
DX: I48.0 Paroxysmal atrial fibrillation (principal); I10 Essential (primary) hypertension; E78.00 Pure hypercholesterolemia, unspecified; N18.31 Chronic kidney disease, stage 3a; J44.9 Chronic obstructive pulmonary disease, unspecified; G60.9 Hereditary and idiopathic neuropathy, unspecified
CPT/HCPCS: 36415; 80053; 82607; 82746; 84155; 84165; 84443; 85025

== ENCOUNTER → 2025-02-13 09:15 | Outpatient (REF) | payer MEDICARE, SELFPAY ==
[2025-02-13 12:31] LABS: Blood Urea Nitrogen 18 mg/dl (9-20); Calcium 9.5 mg/dl (8.4-10.2); Carbon Dioxide 28 mmol/L (22-30); Chloride 105 mmol/L (98-107); Glucose 106 mg/dl (70-99); Potassium 4.5 mmol/L (3.5-5.1); Sodium 139 mmol/L (135-145); eGFR 45.21
== END ==
LOC: HWLAB 09:15
PROVIDERS: ATTENDING PHYSICIAN Physician Assistant; FAMILY PHYSICIAN Internal Medicine
DX: Z01.818 Encounter for other preprocedural examination (principal)
CPT/HCPCS: 36415; 80048

== ENCOUNTER → 2025-02-19 09:25 | Outpatient (REF) | payer MEDICARE, SELFPAY ==
[2025-02-19 15:28] LABS: Albumin 4.1 g/dl (3.5-5.0); Blood Urea Nitrogen 18 mg/dl (9-20); Calcium 9.1 mg/dl (8.4-10.2); Carbon Dioxide 28 mmol/L (22-30); Chloride 105 mmol/L (98-107); Glucose 97 mg/dl (70-99); Potassium 4.5 mmol/L (3.5-5.1); Sodium 139 mmol/L (135-145); eGFR 45.21
== END ==
LOC: HWLAB 09:25
PROVIDERS: ATTENDING PHYSICIAN Internal Medicine; FAMILY PHYSICIAN Internal Medicine
DX: N18.32 Chronic kidney disease, stage 3b (principal)
CPT/HCPCS: 36415; 80069; 82570; 84156

== ENCOUNTER 2025-02-20 22:10 | Inpatient (IN) | payer MEDICARE, SELFPAY ==
[2025-02-20] VITALS (13 sets, daily range): BP systolic 35–160; BP diastolic 73–95; BMI 27.6
--- NOTE | 2025-02-20 18:27 | ED.GENMED ---
History of Present Illness
General
Chief Complaint: Numbness
Source: patient, records and spouse
Exam Limitations: none
Time Seen by Provider: 02/20/25 17:59
Nursing documentation reviewed up to this point in time: agreed with
History of Present Illness
History of Present Illness:
74-year-old male with history of hypertension, hyperlipidemia, atrial fibrillation on Eliquis, AAA status post recent repair presents to the ER for evaluation of numbness in the right leg. Patient reports that he was sitting in a recliner about 45
minutes prior to arrival when he started to notice mild paresthesias in the right leg which eventually progressed to numbness. He stood up and tried to walk thinking that it might improve but symptoms have not improved and in fact have slightly
worsened. He denies any weakness in the leg. He does have some mild pain in the anterior green on the right. He denies any other acute complaints. He denies any back pain, has not had similar symptoms in the past. He notably had AAA repair with
Dr. Ivna on 01/27/2025. He has been on Eliquis, last dose was this morning.
Past History
Past History
ED Past Medical History: CAD, GERD, HTN, Hypercholesterolemia and Other (AAA)
ED Past Surgical History: Cardiac, Orthopedic and Urological
Social History
Tobacco: Non-smoker
Personal:
Review of Systems
Review of Systems
All Other Systems: ROS reviewed and negative except as documented in HPI and ROS
Constitutional: Denies fever
Respiratory: Denies trouble breathing
Cardiac: Denies chest pain
ABD/GI: Denies abdominal pain
: Denies flank pain
Musculoskeletal: Reports muscle pain and back pain; Denies neck pain
Neurological: Reports numbness; Denies headache or weakness
Phy Exam
Physical Exam
Physical Exam:
General: Awake, alert, oriented x3; no acute distress
Head: Normocephalic, atraumatic
Eyes: Conjunctiva normal, sclera anicteric
Throat: Airway intact, handling secretions
Neck: Trachea midline, supple without meningismus
Lungs: Breathing comfortably not in distress
Heart: Regular rate
Abd: Soft, non distended, nontender
Neuro: Cranial nerves grossly intact, speech fluid; motor exam intact proximal and distal right lower extremity; subjective diminished sensation throughout the entire right lower extremity
Skin: Right foot slightly pale to the touch, cool when compared to the left; green/calf warm and pink bilaterally
Extremities: No edema in extremities, positive femoral, popliteal, DP and PT pulses in the left lower extremity; on exam of the right lower extremity he has a very thready femoral pulse, no pulse present popliteal, PT, DP by Doppler
Scores
Heart Failure Risk
Heart Failure Risk Score: Not Applicable
Heart Score for Chest Pain Patients
STEMI patient?: Not applicable
Withdrawal Assessment of Alcohol
Withdrawal Assessment Completed?: Not applicable
Course
Orders/Labs/Results
Orders:
Orders
02/20/25 17:33
Electrocardiogram (*1) Urgent
Reason for Study: Shortness of Breath
EKG- Treatment ONCE
02/20/25 18:23
CT Abd Aorta Angio W/ Run Off Urgent
Comment:
Reason For Exam: cold right leg, no pulse
Consult Vascular Surgery [Vascular Surgery Consult] Urgent
Consulting Provider: Tirso Ivan III
Was physician already notified: Yes
02/20/25 18:26
0.9% Sodium Chloride 1000 ml [Nss] 1,000 ml IV BOLUS
02/20/25 18:43
Heparin 7,600 units IV NOW STA
02/20/25 18:45
Heparin 35336 Units/250 ml 25,000 units in 250 ml IV PER PROTOCOL
Weight to be used for heparin protocol in kilograms (kg):: 94.7
Protocol:: DVT/PE
PTT Goal Range to be used:: PTT 73 to 111 seconds
Order type:: Initial
INITIAL Infusion Dose (UNITS/KG/hr) & then follow protocol:: 18 units/kg/hr
Infusion Dose in UNITS/hr & then follow protocol (UNITS/hr):: 1,700
INFUSION RATE in mL/hr & then follow protocol (mL/hr):: 17
For DVT/PE algorithm, re-bolus for low PTT?: No
PTT less than or equal to 64 seconds:: No Re-bolus. Increase by 400 units/hr (+ 4mL/hr)
PTT 64.1 to 72.9 seconds:: No Re-bolus. Increase by 200 units/hr (+ 2mL/hr)
PTT 73 to 111 seconds:: Target Range. No change in rate.
PTT 111.1 to 130.9 seconds:: Decrease rate by 200 units/hr (- 2 mL/hr)
PTT 131 to 199.9 seconds:: HOLD for 1 hr. Then decrease by 300 units/hr (- 3mL/hr)
PTT greater than or equal to 200 seconds:: HOLD for 2 hrs & Notify Provider. Then decrease by 400 units/hr
(- 4mL/hr)
Lab follow-up:: Each change, PTT q6h until 2 consecutive are therapeutic. Then
PTT daily.
02/20/25 18:57
Type+Screen Urgent
CPK [Creatine Phosphokinase] Urgent
Complete Blood Count/With Diff Urgent
Comprehensive Metabolic Panel Urgent
Lactate Level [Lactic Acid] Urgent
PTT Urgent
Prothrombin Time Urgent
02/20/25 19:26
Heparin 7,600 units IV NOW STA
Pharmacy Request to Place See Dose Instructions PO NOW STA
Discontinue all Active Warfarin orders?: Yes
02/20/25 19:27
PTT Urgent
Comment: Obtain baseline before beginning heparin infusion if not already collected
Nursing to Place Non Medication Order As Directed
Physician Order: PTT 6 hours after initial start of Heparin infusion
02/20/25 19:30
Heparin 43713 Units/250 ml 25,000 units in 250 ml IV PER PROTOCOL
Weight to be used for heparin protocol in kilograms (kg):: 94.7
Protocol:: DVT/PE
PTT Goal Range to be used:: PTT 73 to 111 seconds
Order type:: Initial
INITIAL Infusion Dose (UNITS/KG/hr) & then follow protocol:: 18 units/kg/hr
Infusion Dose in UNITS/hr & then follow protocol (UNITS/hr):: 1,700
INFUSION RATE in mL/hr & then follow protocol (mL/hr):: 17
For DVT/PE algorithm, re-bolus for low PTT?: Yes
PTT less than or equal to 64 seconds:: Re-bolus 80 units/kg (max 10,000units). Increase by 400 units/hr
(+ 4mL/hr)
PTT 64.1 to 72.9 seconds:: Re-bolus 40 units/kg (max 5,000 units). Increase by 200 units/hr
(+ 2mL/hr)
PTT 73 to 111 seconds:: Target Range. No change in rate.
PTT 111.1 to 130.9 seconds:: Decrease rate by 200 units/hr (- 2 mL/hr)
PTT 131 to 199.9 seconds:: HOLD for 1 hr. Then decrease by 300 units/hr (- 3mL/hr)
PTT greater than or equal to 200 seconds:: HOLD for 2 hrs & Notify Provider. Then decrease by 400 units/hr
(- 4mL/hr)
Lab follow-up:: Each change, PTT q6h until 2 consecutive are therapeutic. Then
PTT daily.
02/20/25 19:31
Fentanyl Citrate/Pf [Sublimaze] 25 mcg IV [id number] PRN
HYDROmorphone [Dilaudid] 0.25 mg IV PACU-Q5MPRN PRN
HYDROmorphone [Dilaudid] 0.5 mg IV PACU-Q5MPRN PRN
Ondansetron Injectable [Zofran] 4 mg IV PACU-ONCEPRN PRN
Prochlorperazine [Compazine] 5 mg IV PACU-ONCEPRN PRN
02/20/25 19:32
Notify MD As Directed
Notify physician if: for SDS patients with known or suspected sleep obstructive sleep apnea, monitor in the
PACU.
Notify MD for any apneic/desaturation episodes
O2 Therapy [RESP] Urgent
Titrate/Wean O2 to maintain O2 sat greater than (%): 92
Special Instructions: -Provide supplemental oxygen to achieve O2 sat of 92% or greater.
-After 15 min, may wean O2 and discontinue if patient is able to maintain O2 sat of 92%
or greater during recovery period.
If patient is a discharge home, without oxygen therapy, notify anestheiologist if
unable to maintain O2 SAT of 92% or greater on room air for MD clearance.
02/20/25 19:45
Normosol for PACU (100 mL/hr) Normosol (Mult Electrolytes) [Normosol-R/Plasmalyte-A] 1,000 ml IV PER PROTOCOL
02/20/25 20:[address] See Dose Instructions IV DIRECTED
Abnormal Lab Results
02/20/25
18:57
RBC 3.92 L 10^6/uL
(4.70-6.10)
Hgb 11.3 L g/dL
(13.0-18.0)
Hct 34.0 L %
(39.0-52.0)
Absolute Neuts (auto) 8.1 H 10^3/uL
(1.4-6.5)
Absolute Lymphs (auto) 0.9 L 10^3/uL
(1.2-3.4)
Absolute Monos (auto) 0.7 H 10^3/uL
(0.1-0.6)
Neutrophils % 82.8 H %
(42.2-75.2)
Lymphocytes % 8.8 L %
(20.5-51.1)
PT 16.5 H Sec
(11.4-14.6)
Sodium 134 L mmol/L
(135-145)
BUN 21 H mg/dl
(9-20)
Creatinine 1.7 H mg/dL
(0.7-1.3)
02/20/25 18:57
02/20/25 18:57
Vital Signs
Initial and Last Documented VS:
Initial Vital Signs
Temp Pulse Resp BP Pulse Ox
36.9 C 78 18 141/77 98
02/20/25 17:28 02/20/25 17:28 02/20/25 17:28 02/20/25 17:28 02/20/25 17:28
Last Documented Vital Signs
Temp Pulse Resp BP Pulse Ox
36.9 C 78 18 141/77 98
02/20/25 17:28 02/20/25 17:28 02/20/25 17:28 02/20/25 17:28 02/20/25 18:36
MDM/Problems Addressed
Differential Diagnosis Includes:
Arterial occlusion, DVT, sciatica/radiculopathy
MDM/Problems Addressed:
74-year-old male who is status post AAA repair on 01/27/[address] Ivan presents to the ER with acute onset of numbness in the right leg as well as some mild pain in the green on the right. Vitals are within acceptable range. Exam as above�no
pulses detectable popliteal, DP/PT in the right leg. His right foot is cool and slightly pale compared to the left. Case was discussed with vascular surgeon�Will plan to start empirically on heparin. Will send for a stat CT angio with runoff.
Bedside consult. Anticipate OR. Usual labs sent off.
CT reviewed by me appears to show arterial cutoff just below the knee on the right. Discussed with vascular surgeon who is en route to evaluate.
Discussed with vascular surgery, plan to take to OR for open thrombectomy. Admit to vascular surgery service.
Chronic conditions affecting care:
AAA
*Radiology
Radiology exam reviewed: radiology read reviewed
*Pulse Oximetry
SaO2: 98
Patient hypoxic: no (98%)
*EKG
Interpreted by ED Provider?: Yes
Heart Rate: 71
Rate: normal
Rhythm: sinus
[place]: normal axis
Interval: normal interval
QRS Pattern: normal QRS
Ischemia: no ischemia
*Critical Care Note
Total Time (30-74mins, 75-104mins- exclusive of procedures): 33
comment:
Critical care statement: A total of 33 minutes of critical care time was provided for this patient. This includes management of unstable vital signs, evaluation of the patient at bedside, frequent reassessment, discussion with
consultants/hospitalist, and review of pertinent medical records. This time was separate from time utilized to perform any aforementioned documented procedures
Data Reviewed
Review of Other/Old Records Reveals: Labs and Records
Source: patient and records
Patient Management
Discussion with other providers: Hollock Maker (Discussed with vascular surgeon)
Escalation/DeEscalation of care consider admission/obs:
Admission indicated
ED Attending Note
-
Portions of this chart may have been created with voice recognition software.� Occasional wrong word or��sound alike� substitutions may have occurred due to the inherent limitations of voice recognition software.
Discharge Plan
Departure
Patient Disposition: Admit
Date of Disposition: 02/20/25
Time of Disposition: 19:32
Admit to doctor: Marzena
Presentation/result/management discussed w/ accepting MD/DO: Vascular surgery
Discharge Problem:
Arterial embolus and thrombosis of lower extremity
Prescriptions:
No Action
omeprazole 20 MG capsule,delayed release(DR/EC)
20 mg PO DAILY
loratadine 10 MG tablet
10 mg PO DAILY
atorvastatin 40 mg Tablet
40 mg PO QPM
ezetimibe 10 mg Tablet
10 mg PO DAILY
coenzyme Q10 [CoQ-10] 100 mg Capsule
300 mg PO DAILY
cholecalciferol (vitamin D3) [Vitamin D3] 50 mcg (2,000 unit) Tablet
50 mcg PO QPM
multivitamin Tablet
1 tab PO QPM
aspirin 81 mg Tablet,Delayed Release (Dr/Ec)
81 mg PO DAILY
albuterol sulfate [Ventolin HFA] 90 mcg/actuation Hfa Aerosol Inhaler
2 puff INHALATION R Q4HPRN PRN (Reason: sob)
Prevagen
1 cap PO DAILY
Eliquis 5 mg Tablet
5 mg PO BID Qty: 60 11RF
metoprolol succinate 25 mg Tablet Extended Release 24 Hr
12.5 mg PO DAILY Qty: 30 11RF
Rx Instructions:
hold for SBP<100
Edarbi 40 mg Tablet
20 mg PO QPM Qty: 0 0RF
amiodarone 200 mg tablet
200 mg PO DAILY Qty: 30 5RF
Rx Instructions:
Please take amiodarone 200mg twice daily for 4 weeks then decrease to 200mg daily! FILL SECOND
Interventions
Interventions:
*Risk Screen - Suicide Last Done: 02/20/25 17:31
*General Assessment Last Done: 02/20/25 17:31
*Neglect/Abuse Screening Last Done: 02/20/25 17:31
*ED COVID-19 Vaccine History Last Done: 02/20/25 17:31
*ED Influenza Vaccine History Last Done: 02/20/25 17:31
Discharge Date and Time
Print Language: CYMRAES
[2025-02-20] MEDS: NSS 1000 IV (19:00)
[2025-02-20 19:20] LABS: Hematocrit 34.0 % (39.0-52.0); Hemoglobin 11.3 g/dL (13.0-18.0); Mean Corp Hgb Conc. 33.2 g/dL (33.0-37.0); Mean Corpuscular Volume 86.7 fL (80.0-94.0); Nucleated Red Blood Cells % 0 % (-); Platelet Count 172 10^3/uL (130-400); Red Cell Dist. Width 13.6 % (11.5-14.5)
[2025-02-20 19:28] LABS: APTT 28.1 Sec (23.4-35.0); INR 1.28; PT 16.5 Sec (11.4-14.6)
[2025-02-20 19:29] LABS: ALT (SGPT) 15 U/L (0-50); AST (SGOT) 19 U/L (17-59); Albumin 3.6 g/dl (3.5-5.0); Alkaline Phosphatase 71 U/L (38-126); Blood Urea Nitrogen 21 mg/dl (9-20); Calcium 8.7 mg/dl (8.4-10.2); Carbon Dioxide 24 mmol/L (22-30); Chloride 103 mmol/L (98-107); Estimated Creatinine Clearance 44 ml/min; Glucose 96 mg/dl (70-99); Potassium 4.5 mmol/L (3.5-5.1); Sodium 134 mmol/L (135-145); Total Protein 6.3 g/dl (6.3-8.2); eGFR 42.04
[2025-02-20] MEDS: HEPARIN 7600 UNITS IV (19:33)
[2025-02-20] MEDS: HEPARIN 25000 UNITS/250 ML IV ×2 (19:35→22:16)
--- NOTE | 2025-02-20 19:43 | CON.VAS ---
Consultation
Consultation Request
Date/Time Consultation Requested: 02/20/25
Date/Time Consultation Performed: 02/20/25
Performing Provider: Marzena
Reason for Consultation: Acute limb ischemia, right leg
Medical History
-
Chief Complaint: Numb right leg
History of Present Illness:
74 yo male
Known to me
History of Afib on anticoagulation
Recent endovascular repair of type 1b endoleak
Uneventful post op course
Seen in the office recently and doing well
Scheduled for f/u soon with post op CTA
Acute onset of right leg weakness and numbness while walking outside with around 4:30
Came to ED
No pain, just subjective numbness
Gross motor fxn intact to right foot/ankle/toes
I personally reviewed the CT angiogram images. There is no formal radiology read as of yet. By my direct interpretation there is focal occlusive thrombus within the proximal aspect of the right iliac limb. He has focal linear nonocclusive
thrombus at the same level in the left iliac limb. Distal reconstitution is identified in the region of the iliac branch device. The remainder of the right external iliac artery is patent without dissection or stenosis. The right common femoral
artery is patent without dissection or stenosis. The right superficial femoral artery and profunda femoral artery are patent. No contrast is seen beyond the popliteal artery on arterial phase however on delayed phase, series 505, there is
enhancement of the popliteal artery and proximal tibial arteries on the right but no enhancement is identified in the more distal calf or ankle.
On physical examination he is well-appearing and in no acute distress. is at the bedside.
He has an easily palpable left femoral pulse and easily palpable left pedal pulses
On the right he has grossly intact motor function of the right ankle and toes
His right foot is pink but there is sluggish capillary refill
Decreased light touch sensation on the right compared to the left
Nonpalpable pedal pulses on the right
Past Medical History
Past Medical History: Arrhythmias and CAD
Allergies / Home Medications
Allergy/AdvReac Type Severity Reaction Status Date / Time
adhesive tape Allergy BLISTERS Verified 02/20/25 17:32
cat dander Allergy Hives Verified 02/20/25 17:32
pollen extracts Allergy SEASONAL-Nasal Verified 02/20/25 17:32
congestion,
itchy eyes
�Medication �Instructions �Recorded �Confirmed �Type
omeprazole 20 mg capsule,delayed 20 mg PO DAILY Gastrointestinal 01/18/11 01/27/25 History
release Issue
loratadine 10 mg tablet 10 mg PO DAILY Allergies 03/18/19 01/27/25 History
atorvastatin 40 mg tablet 40 mg PO QPM High Cholesterol 10/25/23 01/27/25 History
cholecalciferol (vitamin D3) 50 50 mcg PO QPM Supplement 10/25/23 01/27/25 History
mcg (2,000 unit) tablet (Vitamin
D3)
coenzyme Q10 100 mg capsule 300 mg PO DAILY Supplement 10/25/23 01/27/25 History
(CoQ-10)
ezetimibe 10 mg tablet 10 mg PO DAILY High Cholesterol 10/25/23 01/27/25 History
Prevagen 1 cap PO DAILY Supplement 11/12/24 01/27/25 History
albuterol sulfate 90 mcg/actuation 2 puff inhalation R Q4HPRN PRN sob 11/12/24 01/27/25 History
aerosol inhaler (Ventolin HFA)
aspirin 81 mg tablet,delayed 81 mg PO DAILY Blood Clot 11/12/24 01/27/25 History
release Prevention/Tx
multivitamin 1 tab PO QPM Supplement 11/12/24 01/27/25 History
amiodarone 200 mg tablet 200 mg PO DAILY #30 tabs 11/13/24 01/27/25 Rx
apixaban 5 mg tablet (Eliquis) 5 mg PO BID #60 tabs 11/13/24 01/27/25 Rx
azilsartan medoxomil 40 mg tablet 20 mg (1/2 x 40 mg) PO QPM #0 tabs 11/13/24 01/27/25 Rx
(Edarbi)
metoprolol succinate 25 mg 12.5 mg (1/2 x 25 mg) PO DAILY #30 11/13/24 01/27/25 Rx
tablet,extended release 24 hr tabs
Physical Exam
Vital Signs
Temp Pulse Resp BP Pulse Ox
98.4 F 70 15 160/78 98
02/20/25 17:28 02/20/25 19:39 02/20/25 19:39 02/20/25 19:39 02/20/25 19:30
Lab Results
02/20/25 18:57
02/20/25 18:57
Assessment / Plan
-
Assessment:Acute limb ischemia of the right lower extremity. I suspect this is an embolus from atrial fibrillation. The iliac branch device is widely patent without any evidence of kinking or limb compression. The point of occlusion in the right
iliac limb is proximal and well upstream of the iliac bifurcation/iliac branch device.
Plan:
-Agree with heparin. OR now for thrombectomy of the right iliac limb and right lower extremity. The technical aspects of this procedure were discussed with him and his in detail. The benefits and rationale for this approach were discussed
with both of them in detail. Operative risks were discussed with them in detail including but not limited to bleeding, infection, wound healing complications, heart attack, stroke, distal embolization, ongoing ischemia, need for additional
surgeries and limb loss. They expressed a clear understanding of our conversation and agreed to proceed with surgery as detailed above.
-Plan to anticoagulate immediately post op with heparin gtt. Given presence of palpable pedal pulses in the left foot I will not plan to intervene on the non-occlusive left iliac limb thrombus and will plan to treat this with anticoagulation
initially
-Cardiology consult for 02/21. TTE 02/21. ? Eliquis failure.
Data Reviewed
-
CT Scan: Image Personally Visualized and interpreted, Discussed with Physician, Discussed with Patient and Discussed with Family
[2025-02-20 21:10] LABS: ACT-LR - POC 216 Seconds (116-155)
--- NOTE | 2025-02-20 22:16 | W.IMMPOSTOP ---
Surgical Immed Post Op Note
-
Primary Surgeon: Marzena
Pre-op Diagnosis: Acute limb ischemia
Post-op Diagnosis: Acute limb ischemia
Procedure Performed: Thrombectomy RLE
Anesthesia Type: General
Specimen / Cultures: Thrombus
Estimated Blood Loss: 50 cc
Complications: None
Operative Findings: Organized thrombus from right iliac thrombectomy. Sent to pathology
Palpable DP/PT at conclusion of the case
--- NOTE | 2025-02-20 22:30 | OR.RPT ---
Operative Report
Operative Report
Date of Operation: 02/20/2025
Pre Op Diagnosis: Acute limb ischemia, right lower extremity
Post Op Diagnosis: Acute limb ischemia right lower extremity
Procedure:
1. Right femoral artery cutdown and exposure for thrombectomy
2. Thrombectomy of right iliac limb of aortic stent graft
3. Thrombectomy of right superficial femoral artery, popliteal artery and tibial arteries via groin incision
Surgeon: Tirso Ivan III, MD
Anesthesia: General
Complications: None
Estimated Blood Loss: 50 cc
History and Indications for Procedure: 74-year-old male recently status post endovascular repair of type Ib endoleak involving the right iliac limb of a previously placed aortic stent graft for AAA. This procedure was performed with an iliac branch
device. Patient has a history of chronic atrial fibrillation and is on systemic anticoagulation. This afternoon had acute onset numbness of his right lower extremity. Cross-sectional imaging demonstrated a focal occlusion of the proximal right
iliac limb. He was taken to the operating room for thrombectomy.
Procedure in Detail: Wei Lynn was correctly identified and placed supine on the operating table. After adequate induction of anesthesia his abdomen, pelvis, groin and right lower extremity circumferentially were prepped and draped in usual
sterile fashion. He received preoperative antibiotics. A timeout procedure was performed with the nursing and anesthesia staff confirming the patient's identity as well as the nature and laterality of the procedure.
I made a vertical incision over the right groin centered on the previous percutaneous access site from his recent endovascular procedure. Using a combination of electrocautery and sharp dissection I exposed the right common femoral artery at the
inguinal ligament. There was no pulse in the common femoral artery. The common femoral artery was soft. The Prolene sutures from the Pro-glide closure devices were identified. I obtained vessel loop control of the common femoral artery at the
inguinal ligament. I continued distal dissection to the femoral bifurcation and expose the proximal superficial femoral artery and profunda femoral artery. Each of these was encircled with a vessel loop. The patient had been previously bolused
with heparin in the emergency room. An ACT was obtained and an additional heparin bolus was administered.
The vessel loops were secured. I made a transverse arteriotomy on the distal common femoral artery proximal to the femoral bifurcation. There was no thrombus in the common femoral artery. I then passed the #5 Merritt balloon catheter
approximately with ease. Multiple passes were made through the right iliac limb. Well-organized thrombus was returned and sent to pathology. I passed this Merritt catheter until I had 3 negative sequential passes. I then passed the #4 Merritt
balloon proximally and did not return any additional thrombus on multiple passes. At this point there was brisk pulsatile bleeding from the common femoral artery with release of the vessel loop. This was a dramatic improvement compared to
pre-thrombectomy. I flushed the proximal artery with heparinized saline solution and secured the vessel loop.
I then focused my attention on the distal lower extremity. Backbleeding was identified from both the profunda femoral artery and superficial femoral artery. I passed the #4 Merritt balloon distally down the superficial femoral artery. No thrombus
was returned after 3 sequential passes. I then followed this with a #3 Merritt balloon distally and again returned no thrombus. I made a single pass down the profunda femoral artery and no thrombus was returned. Each of these were then flushed
with heparinized saline solution and the vessel loops resecured. I repaired the arteriotomy with a running 5-0 Prolene suture. The proximal and distal vessel loops were released after repair of the common femoral artery.
At this point there was a strong pulse in the common femoral artery. Palpable pulses were felt in the proximal superficial femoral artery and profunda femoral artery. A palpable pulse returned to the dorsalis pedis artery. A palpable pulse
returned to the posterior tibial artery. Satisfied with this result we then concluded the procedure. I did not reverse the heparin. A #10 ABNER drain was brought out through a stab incision in the thigh and left in the wound bed. This was secured
in place at the skin level with a nylon suture. The wound was irrigated with saline solution. Hemostasis was achieved in the wound bed. The wound was closed in layers and sterile dressings were applied.
The patient tolerated the procedure well and awoke from general anesthesia with no immediate complications. He was taken to the recovery room in stable condition.
At the conclusion of the case he had palpable pulses in the dorsalis pedis and posterior tibial location in the right foot.
Signed:
Tirso Ivan III, MD
Vascular Surgery
[facility]
[2025-02-20 22:54] LABS: Glucose - Point of Care 124 mg/dl (70-99)
[2025-02-20] MEDS: NSS IV (23:11)
--- NOTE | 2025-02-20 23:30 | PTCARENOTE ---
Received pt from [employer]. Pt recovered in PACU, Heparin gtt restarted in PACU around 2210, PTT retimed. Pt is AAOx3, JENA, neurovascular checks (see worklist). NSR on the monitor, + pedals. Pt on RA O2 sat 93%, lungs clear. Ivan in place for
critical I&O, temp sensing. Right groin dressing c/d/i. Right Aquacel dressing scant dressing. Right groin hematoma soft and swollen, ICU PASTE PLANT SUPERVISOR in to see the pt and updated vascular. Right LE pink and cool, warm blanket provided. Heparin gtt at 1700
units/hr. NS infusing @ 125 ml/hr. CHG bath provided. Call vargas in reach. Safe environment maintained.
--- NOTE | 2025-02-20 23:54 | W.PN.UPDATE ---
Update Note
Progress Note Update
2161- Updated Dr. Ivan, vascular surgeon, of hematoma (soft, no skin surface discoloration) around incision site to perineal area. Approximately 100cc at incision site drainage bulb, sanguineous bloody drainage. Patient has pain at the incision
site but does no radiate, area surrounding incision is soft.
[2025-02-21] VITALS (77 sets, daily range): BP systolic 57–180; BP diastolic 32–131; BMI 26.7
--- NOTE | 2025-02-21 02:01 | W.PN.UPDATE ---
Update Note
Progress Note Update
0200- RN updated output continued with serosang bloody drainage, output since vascular OR total now 525cc with incisional dressing saturated. Surrounding swelling/hematoma soft, has no expanded. Dr. Ivan updated on output.
--- NOTE | 2025-02-21 02:13 | PTCARENOTE ---
Pt with increased sanguineous output from the ABNER and dressing saturated, dressing re-enforced. ICU CONCRETE PRODUCTS MACHINE OPERATOR notified and at bedside, Dr Ivan updated via ICU CONCRETE PRODUCTS MACHINE OPERATOR. Swelling and hematoma soft, no changes.
--- NOTE | 2025-02-21 03:18 | PTCARENOTE ---
Systems reviewed, no new changes in assessment. AM labs provided. Call vargas in reach. Safe environment maintained.
[2025-02-21 03:22] LABS: Hematocrit 28.8 % (39.0-52.0); Hemoglobin 9.8 g/dL (13.0-18.0); Mean Corp Hgb Conc. 34.0 g/dL (33.0-37.0); Mean Corpuscular Volume 88.9 fL (80.0-94.0); Platelet Count 189 10^3/uL (130-400); Red Cell Dist. Width 13.9 % (11.5-14.5)
[2025-02-21 03:44] LABS: INR 1.40; PT 17.7 Sec (11.4-14.6)
[2025-02-21 04:08] LABS: APTT > 200 Sec (23.4-35.0)
[2025-02-21 05:23] LABS: Blood Urea Nitrogen 18 mg/dl (9-20); Calcium 8.2 mg/dl (8.4-10.2); Carbon Dioxide 19 mmol/L (22-30); Chloride 108 mmol/L (98-107); Estimated Creatinine Clearance 46 ml/min; Glucose 207 mg/dl (70-99); Magnesium 2.5 mg/dl (1.6-2.3); Potassium 4.3 mmol/L (3.5-5.1); Sodium 138 mmol/L (135-145); eGFR 45.21
[2025-02-21 05:24] LABS: Hematocrit 31.0 % (39.0-52.0); Hemoglobin 10.0 g/dL (13.0-18.0); Mean Corp Hgb Conc. 32.3 g/dL (33.0-37.0); Mean Corpuscular Volume 88.6 fL (80.0-94.0); Platelet Count 273 10^3/uL (130-400); Red Cell Dist. Width 14.1 % (11.5-14.5)
[2025-02-21 05:31] LABS: B.E. -8.2 mmol/L; HCO3 17.0 mmol/L (21-28); O2 Saturation % 99.6 % (94-98); PCO2 33 mmHg (35-48); PO2 117 mmHg (83-108)
[2025-02-21 05:32] LABS: O2 Therapy RA
--- NOTE | 2025-02-21 05:39 | W.PN.UPDATE ---
Update Note
Progress Note Update
Notified that patient's BP dropped acutely and was started on pressor
Pt seen and examined
Awake and alert
Reports nausea and attempted vomiting immediately before the BP dropped
Denies chest pain
Denies abd pain
Expected incisional pain
ABNER output has been bloody overnight
Heparin gtt was maintained due to acute limb ischemia/thrombectomy
Hgb was 9 and then 10 on repeat
Blood is transfusing currently
On exam he is pale appearing
Abd is completely soft and NT
No RLQ abdominal tenderness. No abdominal fullness
Right groin is completely soft and flat
Soft hematoma at the ABNER skin exit site only but this is not significant
Palp R DP pulse
I dont get the sense that this event is from acute blood loss. His groin is soft, RLQ is soft and not full.
Complete the blood transfusion and repeat CBC
Hold heparin for now
EKG
Troponin
Cardiology input
Echo
Communicated with the ICU team
[id number]
Vascular Surgery
[2025-02-21] MEDS: NSS 1000 IV ×4 (05:41→21:42)
[2025-02-21] MEDS: LEVOPHED 250 IV (05:41)
--- NOTE | 2025-02-21 06:10 | W.PN.UPDATE ---
Update Note
Progress Note Update
02/21/2025
0450- Patient had episode of hypotension SBP 60s then repeat 50s accompanied with feeling of 'unwell', generalized pale appearance, and less responsive. He then had heart rate slowing to 50s, immediately patient was placed in a flat position, NSS
IVF open wide, epi pushed x1 and bicarb 1x amp push IV. He then began to gag and attempt to vomit, along with feeling unwell. Denied any chest pain or abdominal pain. Right groin incision, continues with serosang drainage, surrounding incision
soft, not firm. Hgb 9.8 on morning labs, but concern for possible acute drop in hgb and bleeding PRBCs were immediately ordered. Heparin gtt was on hold previously for PTT>200. Levophed gtt ordered for hypotension in addition to IVF NSS x1L open
wide. Dr. Ivan was immediately called updated on events and coming in to evaluate at the bedside further.
PRBCs x2 infused rapidly. Repeat Hgb stable, now 10.0. Patient having ectopic beats, sinus with non specific ST depression, then junctional rhythm and multiple PACs/PVCs. Troponin pending with repeat labs. Dr. Ivan evaluated surgical site at
bedside. Cardiology consulted, Dr. Cesar (patient follows Dr. Urias outpatient), known CAD history and does have afib history. Recommendations received from Dr. Stefani Cesar repeat troponins, repeat EKG in 1 hour, and echo. Also updated
Dr. Moore, academic advisement director.
--- NOTE | 2025-02-21 06:19 | PTCARENOTE ---
Went in to reassess pt, pt c/o SOB O2 placed on pt, felt hot, diaphoretic, BP dropped to 61/50, pale. ICU KNIFE MACHINE OPERATOR at bedside. 1L NS bolus given. Code 9 was called, 1 mg epi pushed, pt never lost a pulse. ICU KNIFE MACHINE OPERATOR and providers at bedside. Pt felt nauseous,
dry heaving. Levo gtt started (see worklist). 2 units PRBCs ordered, infusing rapidly (see pink sheet). Labs provided. EKGs provided. 0800 ASA given per ICU KNIFE MACHINE OPERATOR.
[2025-02-21] MEDS: LOW STRENGTH ASPIRIN 81 MG PO (06:34)
[2025-02-21 06:54] LABS: Troponin I 0.055 ng/ml
[2025-02-21] MEDS: SODIUM BICARBONATE 50 MEQ IV (07:12)
[2025-02-21] MEDS: ADRENALIN 1 MG/10 ML IV (07:12)
--- NOTE | 2025-02-21 07:32 | CON.CAR ---
Addendum entered and electronically signed by JL Bowles 02/25/25 12:38:
elevated troponin due to nonischemic myocardial injury
Addendum entered and electronically signed by Edward Batista MD 02/21/25 10:09:
74-year-old man who presented with ischemic right lower extremity presumably related to cardioembolic occlusion of right iliac limb of endovascular abdominal aortic graft. Emergent thrombectomy performed February 20, early postoperative course
complicated by systolic blood pressure in the 60s and heart rate in the 50s, hemoglobin 9.8
PMH/PSH: CAD, NSTEMI with RCA PCI, OM POBA August 2022, paroxysmal atrial flutter diagnosed 2024 with spontaneous conversion to normal sinus rhythm, recent endovascular repair of 1B endoleak on January 27, 2025 (graft placed 2020), hypertension,
hyperlipidemia, stage IIIb CKD, with atrophic right kidney, prostate cancer status post prostatectomy, GERD,
Allergies: Amiodarone with possible cerebellar ataxia
Meds: Heparin on hold, aspirin 81 mg daily, atorvastatin 40 mg a day, metoprolol ER 12.5 mg daily, Levophed, being weaned, ezetimibe
137/86, pulse 82, respiratory rate 16, afebrile, weight is 91.7 kg, appears fatigued but no acute distress at bedside, head neck exam unremarkable, lungs are clear, regular rate and rhythm without obvious murmurs JVD okay, right leg is warm
distal pulses palpable, abdomen obese
Chest x-ray: Question COPD, scoliosis
ECG: Sinus rhythm, PACs and pattern of bigeminy, nonspecific ST and T changes, prior tracings with ST depression laterally and inferiorly
Echo 10/2024: EF 55-60%, mild to moderate MR, pulmonary artery systolic pressure 32, aorta 4.1 cm
White count 14.6, hemoglobin 9.4 CO2 19, anion gap 11, creatinine 1.6, which is baseline, lactic acid 1.5, troponin 0.055
Impression:
Mildly elevated troponin, non-ACS related, with transient ST segment depression
Urgent right lower extremity thrombectomy for acutely ischemic right lower extremity, presumably cardioembolic iliac artery occlusion 02/20/2025
endovascular repair of type Ib endo leak 01/27/2025
paroxysmal atrial atrial flutter, diagnosed October 2024
CAD with NSTEMI status post PCI to RCA and OM 05/2022 with ballooning of OM 2 as small and not amenable to PCI-performed at [facility]
Hypertension
Hyperlipidemia
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
Prostate cancer status post prostatectomy
GERD
Plan:
He presents with acute ischemia of the right lower extremity, now thrombectomy.
Vascular surgery, high likelihood of cardioembolic source, though patient has missed only 2 days of Eliquis roughly 1 month ago, and has not had clinical atrial fibrillation. Atrial flutter was first diagnosed earlier this year. He had been on
amiodarone until recently.
Data supporting change in anticoagulants after an embolic event are essentially nonexistent. At present I would favor resumption of Eliquis when patient is hemodynamically stable and no longer bleeding. Currently, output from ABNER drain is still
fairly substantial.
From my standpoint, okay to hold heparin until surgery feels comfortable. Defer to surgery whether heparin be started first and then DOAC or if okay to simply restart DOAC when stable.
ECG changes were present but now better. Troponin is only minimally detected. Continue metoprolol, aspirin, wean norepinephrine, continue statin, ezetimibe
Will check echo and can consider an outpatient sestamibi study. At present, I suspect that his elevated troponin is a non-ACS related myocardial injury from hemodynamic stress from surgery.
Original Note:
Medical History
-
Chief Complaint: elevated HR
History of Present Illness:
Patient is a 74-year-old male with past medical history of CAD with NSTEMI status post PCI to RCA and OM1 08/2022, paroxysmal afib on Eliquis, PAD s/p recent endovascular repair of type Ib endoleak 01/27/2025, presented to ED 02/20/2025 with acute onset
right lower extremity weakness and numbness while walking. Found to have acute ischemia thought to be embolic from A-fib/possible Eliquis failure. Went urgently to the OR 02/20/2025 for thrombectomy of right iliac limb and right lower extremity.
Had postop hematoma. Overnight acutely dropped blood pressure to 60s with heart rate to 50s. Received IV fluids open wide, epinephrine x 1, bicarb x 1 with presyncope, vomiting and gagging. Started on Levophed drip and 1 L normal saline open
wide. Hemoglobin 9.8. Received 2 units PRBCs, repeat hemoglobin 10. EKG normal sinus rhythm with nonspecific ST depression then junctional rhythm with PACs and PVCs. Troponin 0.055.
EKG normal sinus rhythm with nonspecific ST depressions, PACs, PVCs
Cardiology consulted for EKG changes/ST depressions, Hypotension, bradycardia.
Patient denies chest pain, shortness of breath, palpitations
He has maintained sinus rhythm. He has been on Eliquis in the outpatient setting with no missed doses. He was previously on amiodarone and self stopped it in January 2025 due to unsteady gait and fatigue with improvement in symptoms.
He continues on aspirin status post GEORGI. He was on dual antiplatelet therapy previously with aspirin and Brilinta and Brilinta was stopped in July 2024.
Echo 09/2024 EF 55 to 60% with mild to moderate MR, dilated ascending aorta 4.1 cm
He follows with Dr. Beck for chronic renal insufficiency due to prior atrophic right kidney
PMH:
CAD with NSTEMI status post PCI to RCA and OM 05/2022 with ballooning of OM 2 as small and not amenable to PCI- at [facility]
AAA with endoleak s/p repair 12/17/2024
Hypertension
Hyperlipidemia
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
Prostate cancer status post prostatectomy
GERD
Paroxysmal atrial fibrillation
Acute ischemia right lower extremity status post thrombectomy of right iliac limb aortic stent graft and right superficial femoral artery, popliteal artery, and tibial arteries 02/20/2025
Past Medical History
Past Medical History: Other (in HPI)
Social History
Tobacco: Former Smoker
Alcohol: Occasional
Personal:
Living: With Family
Family History
Family History: Other (AAA, heart disease, kidney failure, CAD/TN, hypertension)
Allergies / Home Medications
Allergy/AdvReac Type Severity Reaction Status Date / Time
adhesive tape Allergy BLISTERS Verified 02/20/25 17:32
cat dander Allergy Hives Verified 02/20/25 17:32
pollen extracts Allergy SEASONAL-Nasal Verified 02/20/25 17:32
congestion,
itchy eyes
�Medication �Instructions �Recorded �Confirmed �Type
omeprazole 20 mg capsule,delayed 20 mg PO DAILY Gastrointestinal 01/18/11 01/27/25 History
release Issue
loratadine 10 mg tablet 10 mg PO DAILY Allergies 03/18/19 01/27/25 History
atorvastatin 40 mg tablet 40 mg PO QPM High Cholesterol 10/25/23 01/27/25 History
cholecalciferol (vitamin D3) 50 50 mcg PO QPM Supplement 10/25/23 01/27/25 History
mcg (2,000 unit) tablet (Vitamin
D3)
coenzyme Q10 100 mg capsule 300 mg PO DAILY Supplement 10/25/23 01/27/25 History
(CoQ-10)
ezetimibe 10 mg tablet 10 mg PO DAILY High Cholesterol 10/25/23 01/27/25 History
Prevagen 1 cap PO DAILY Supplement 11/12/24 01/27/25 History
albuterol sulfate 90 mcg/actuation 2 puff inhalation R Q4HPRN PRN sob 11/12/24 01/27/25 History
aerosol inhaler (Ventolin HFA)
aspirin 81 mg tablet,delayed 81 mg PO DAILY Blood Clot 11/12/24 01/27/25 History
release Prevention/Tx
multivitamin 1 tab PO QPM Supplement 11/12/24 01/27/25 History
amiodarone 200 mg tablet 200 mg PO DAILY #30 tabs 11/13/24 01/27/25 Rx
apixaban 5 mg tablet (Eliquis) 5 mg PO BID #60 tabs 11/13/24 01/27/25 Rx
azilsartan medoxomil 40 mg tablet 20 mg (1/2 x 40 mg) PO QPM #0 tabs 11/13/24 01/27/25 Rx
(Edarbi)
metoprolol succinate 25 mg 12.5 mg (1/2 x 25 mg) PO DAILY #30 11/13/24 01/27/25 Rx
tablet,extended release 24 hr tabs
Review of Systems
-
History Source: Patient and Family
All other systems: Negative unless noted
Physical Exam
Vital Signs
Temp Pulse Resp BP Pulse Ox
97.5 F 82 16 137/86 100
02/21/25 03:11 02/21/25 07:15 02/21/25 07:15 02/21/25 07:15 02/21/25 07:00
Lab Results
02/21/25 05:05
02/21/25 05:08
Troponin I 0.055 ng/ml H* 02/21/25 06:09
GEN: No distress, awake, Ox3
HEENT: supple, anicteric, mmm
LUNGS: CTA, no wheezes/rales
CV: Reg, S1/S2, no murmur
ABD: soft, BS+, NT/ND
EXT: No edema
NEURO: Gross non-focal
SKIN: No rash
Impression / Plan
-
Primary Sonographer: Dr. Urias
Assessment:
Hypotension
Bradycardia
Abnormal EKG
Mildly elevated troponin
Urgent right lower extremity thrombectomy 02/20/2025
endovascular repair of type Ib endo leak 01/27/2025
paroxysmal atrial fibrillation/atrial flutter, diagnosed October 2024
Relative hypotension
Acute CHF, unknown type, suspected diastolic
Fall 11/10/24
CAD with NSTEMI status post PCI to RCA and OM 05/2022 with ballooning of OM 2 as small and not amenable to PCI-performed at [facility]
Hypertension
Hyperlipidemia
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
Prostate cancer status post prostatectomy
GERD
ECHO 02/01/2024: EF 55 to 60%, no regional wall motion abnormalities noted, mild concentric LVH, mild to moderate MR
ECHO 11/13/24: EF 55 to 60% with mild to moderate MR, PAP 32 mmHg, mildly dilated ascending aorta 4.1 cm
Plan:
-Cardiology consulted for acute hypotension and bradycardia with presyncope following vascular procedure, EKG with with nonspecific ST depressions
-Troponin 0.055, trend to peak
-Serial EKGs and troponins
-denies CP
- Check echo today
- Remains on levo at 4, weaning down BP improved
-Telemetry personally reviewed: Normal sinus rhythm 80s, PACs, PVCs
-hemoglobin has been stable, 10.0 this morning. Did receive 2 units of packed red blood cells
-cont ASA 81 mg daily
--Continue EELER Toprol 12.5 mg daily
- Continue EELER Atorvastatin and Zetia
- Patient had acute ischemic right lower extremity thrombus while on Eliquis. Concern for Eliquis failure. Currently on heparin drip. Consider change oral anticoagulant to other agent, consider Pradaxa versus warfarin.
Maintaining sinus rhythm, was previously on amiodarone for paroxysmal A-fib but stopped due to side effects of weakness. If recurrent A-fib in future consider ablation versus alternative antiarrhythmic medication.
-Follows with nephrology in outpatient setting, on Edarbi for BP control
- Discussed with nursing
- Discussed with
Data Reviewed
-
EKG: Tracing Personally Visualized and interpreted
Labs: Labs Reviewed by me
--- NOTE | 2025-02-21 07:38 | PTCARENOTE ---
Neurovascular check completed in tandem with offgoing RN, ABNER emptied for another 50 mls sanguinous drainage, dressing changed by vascular PLEATER Kalyn. updated at bedside by PLEATER as well. Levo, heparin, IVF infusing as ordered. Levo titrated down
per protocol. BP 129/79, HR 8 SR with PVCs on tele. Pt AOx3 pleasant, hungry, ordered breakfast. No complaints other than mild soreness in right groin. Call vargas in hand, safe environment ongoing.
--- NOTE | 2025-02-21 07:40 | CON.INTV ---
Consultation
Consultation Request
Date/Time Consultation Requested: 02/20/2025
Date/Time Consultation Performed: 02/21/2025
Medical History
-
Chief Complaint: Ischemic limb
History of Present Illness:
Patient is a very pleasant 74-year-old gentleman with history of atrial fibrillation and coronary artery disease on chronic anticoagulation, status post recent endovascular repair for type Ib endoleak (01/2025). Patient presented to the hospital
with acute onset of right leg weakness and numbness. He was emergently evaluated in the emergency room and subsequently had a CT angiogram performed. It was suggestive of a focal occlusive thrombus within the proximal aspect of the right iliac
limb. In view of concern for acute limb, vascular surgery took the patient to the OR. Patient had right femoral artery cutdown and exposure for thrombectomy of right iliac limb of aortic stent graft as well as right superficial femoral artery,
popliteal artery and tibial arteries via ground access. Post surgery, patient was on heparin infusion and was admitted to ICU. Clinic Physician consultation was requested for further input.
PMHx: COPD/asthma, former tobacco smoker, CAD s/p stent, hypertension, hyperlipidemia, GERD, osteoarthritis, history of prostate cancer, CKD
PSHx: Right TKA, right VANESSA, spinal surgery, right shoulder TSA, left VANESSA, prostatectomy, coronary stents placed (), AAA repair (2020)
Past Medical History
Past Medical History: Other (Above as per HPI)
Past Surgical History: Other (Above as per HPI)
Social History
Tobacco: Former Smoker ([id number] history, quit 2019)
Alcohol: Other (Rarely)
Drug: None
Personal:
Living: With Family
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
Family History
Family History: CAD (Father + mother), Cancer (Maternal uncle: Prostate cancer), Hypertension (Mother) and Other (Mother: history of AAA repair + kidney failure; Maternal uncle: history of AAA)
Allergies / Home Medications
Allergies
Allergy/AdvReac Type Severity Reaction Status Date / Time
adhesive tape Allergy BLISTERS Verified 02/20/25 17:32
cat dander Allergy Hives Verified 02/20/25 17:32
pollen extracts Allergy SEASONAL-Nasal Verified 02/20/25 17:32
congestion,
itchy eyes
Home Medications
�Medication �Instructions �Recorded �Confirmed �Last Taken �Type
omeprazole 20 mg capsule,delayed 20 mg PO DAILY Gastrointestinal 01/18/11 01/27/25 01/26/25 05:00 History
release Issue
loratadine 10 mg tablet 10 mg PO DAILY Allergies 03/18/19 01/27/25 01/26/25 05:00 History
atorvastatin 40 mg tablet 40 mg PO QPM High Cholesterol 10/25/23 01/27/25 01/26/25 17:00 History
cholecalciferol (vitamin D3) 50 50 mcg PO QPM Supplement 10/25/23 01/27/25 01/26/25 17:00 History
mcg (2,000 unit) tablet (Vitamin
D3)
coenzyme Q10 100 mg capsule 300 mg PO DAILY Supplement 10/25/23 01/27/25 01/26/25 05:00 History
(CoQ-10)
ezetimibe 10 mg tablet 10 mg PO DAILY High Cholesterol 10/25/23 01/27/25 01/26/25 17:00 History
Prevagen 1 cap PO DAILY Supplement 11/12/24 01/27/25 1 Week Ago History
~01/20/25
albuterol sulfate 90 mcg/actuation 2 puff inhalation R Q4HPRN PRN sob 11/12/24 01/27/25 2 Months Ago History
aerosol inhaler (Ventolin HFA) ~11/26/24
aspirin 81 mg tablet,delayed 81 mg PO DAILY Blood Clot 11/12/24 01/27/25 01/27/25 05:00 History
release Prevention/Tx
multivitamin 1 tab PO QPM Supplement 11/12/24 01/27/25 01/26/25 17:00 History
amiodarone 200 mg tablet 200 mg PO DAILY #30 tabs 11/13/24 01/27/25 01/27/25 05:00 Rx
apixaban 5 mg tablet (Eliquis) 5 mg PO BID #60 tabs 11/13/24 01/27/25 01/25/25 21:00 Rx
azilsartan medoxomil 40 mg tablet 20 mg (1/2 x 40 mg) PO QPM #0 tabs 11/13/24 01/27/25 01/26/25 17:00 Rx
(Edarbi)
metoprolol succinate 25 mg 12.5 mg (1/2 x 25 mg) PO DAILY #30 11/13/24 01/27/25 01/27/25 05:00 Rx
tablet,extended release 24 hr tabs
Review of Systems
-
Hematologic/Lymphatic: Other (All 14 systems reviewed and negative except as stated above in the history of present illness. Pertinent positives increased swelling of right groin region as well as increased bloody drainage)
Vitals / Labs / Diagnostic Testing
Vital Signs
Temp Pulse Resp BP Pulse Ox
98.1 F 82 16 137/86 100
02/21/25 07:34 02/21/25 07:15 02/21/25 07:15 02/21/25 07:15 02/21/25 07:00
Lab Data
02/21/25 05:05
02/21/25 05:08
Laboratory Results
02/20/25 02/20/25 02/21/25
18:57 19:27 00:00
PT 16.5 H
INR 1.28
APTT 28.1 Cancelled Cancelled
pH
pCO2
pO2
HCO3
O2 Delivery Level
02/21/25 02/21/25 02/21/25
03:12 03:12 03:12
PT Cancelled 17.7 H
INR Cancelled 1.40
APTT > 200 H*
pH
pCO2
pO2
HCO3
O2 Delivery Level
02/21/25
05:23
PT
INR
APTT
pH 7.32 L
pCO2 33 L
pO2 117 H
HCO3 17.0 L
O2 Delivery Level Ra
Diagnostic Testing:
Physical Exam
-
HEENT: Normocephalic
Cardiovascular: S1/S2
Respiratory: Clear and Non-Labored Respirations
GI: Soft and Non Distended
Neurology: Awake and Alert
Skin: Warm and Other (Large hematoma in the right groin region, significant sanguinous discharge from the drain)
General: Comfortable
Assessment
-
Patient is s/p right femoral artery cutdown and thrombectomy of right iliac limb of aortic stent graft as well as thrombectomy of right superficial femoral artery, popliteal artery tibial arteries right groin incision, by vascular surgery service,
POD # 1
Continue observation following procedure
Follow neurovascular checks per protocol
ASA, Metoprolol and statin on board
Follow BP monitoring and parameters as set by primary team
Cardiac history reviewed
Monitor on telemetry
ABG 7.32/33/117 on 02/21
Pain control per protocol
RASS goal 0
Known history of COPD/asthma. Follows up with [facility] pulmonary clinic. Currently stable
CXR reviewed indicating no acute disease
No prior PFTs for review
Encouraged IS
Diet advancement per protocol
Aspiration precautions
GI prophylaxis: None
Cr at baseline, follow UO
Critical I/Os
Void trials
Replete electrolytes as needed
No signs/symptoms suspicious for infectious etiology at this time
Will observe off antibiotics for now
Follow temperatures/CBC
Anemia noted, s/p 3 units PRBC 02/21
Hb , 12.3 > 11.3 > 9.8 > 10.0
DVT prophylaxis: SCDs. Defer to surgery service
Other medical diagnoses:
- Paroxysmal Atrial Fibrillation
- H/o CAD, s/p PCI (08/2022). Cardiology service on case, minimal troponin leak noted
- HTN, HLD
- h/o AAA. s/p repair ()1
- Moderate MR
- COPD/Asthma. Follows up [facility], Dr. Castro. Resume out patient follow up.
- Near syncope/pale/diaphoresis/vomiting x1 in 09/2022 during rehab. ?Vaso-vagal
- H/o Smoking, age [age]
- CKD. stable Cr, 1.6 today
- Acute blood loss anemia, suspect vasovagal episode 02/21. Patient follow-up symptoms of bradycardia, hypotension, nausea and near syncopal feeling. Suspect this is triggered by increased sanguinous discharge from the right groin drain. Patient
has enlarging hematoma in the right groin as well as significant sanguinous drainage from the drain. Vascular surgery on case, patient scheduled to go back to the OR for further revision.
Critical Care time [68 ] mins -- The patient is admitted for acute critical illness for the treatment of vital organ failure and/or prevention of further life-threatening conditions. Total care includes time spent in review of history, physical
exam, medications, hemodynamic/ventilator parameters, laboratory data, imaging and discussion with house staff, pharmacy, respiratory therapy, fur farmer, and nursing
Data:
CT Abd 02/2025: Thrombosis with high-grade obstruction of the proximal 4 cm segment of the right bifurcated limb of the aortic stent graft. Intensity of intraluminal contrast opacification in the right lower extremity arterial system is diminished.
At the approximate level of the popliteal artery, intraluminal contrast enhancement, and therefore flow, appears relatively absent throughout the popliteal and trifurcation vessels. Presumably, this is related to markedly slow flow, as opposed to
distal thrombosis.
No significant change in size of the [place] infrarenal abdominal aortic aneurysm sac.
ECHO 10/2024: Normal left ventricular size and systolic function. Mild concentric left
ventricular hypertrophy. No regional wall motion abnormalities are seen. LV
ejection fraction is 55-60% by volumetric assessment. Normal diastolic
function.
Normal right ventricular size and function.
Thickened mitral valve leaflets with mild to moderate mitral regurgitation.
Trace tricuspid regurgitation. Estimated pulmonary artery pressure of 32 mmHg
assuming a right atrial pressure of 3 mmHg.
Mildly Dilated Sinus of Valsalva-3.9 cm, Sinotubular junction-3.2 cm and
ascending aorta-4.1 cm.
Compared to previous echo 02/01/24, the LVEF and mitral valve are stable. The
ascending aortic size measures slightly larger increasing from 3.8 cm to 4.1
cm[address]
LDCT 03/2024: Tiny scattered right upper lobe tree-in-bud/groundglass opacities most in keeping with a low-grade infectious/inflammatory bronchiolitis.
Mild fusiform aneurysmal dilatation of the ascending thoracic aorta measuring up to 4.1 cm
LUNG-RADS category: 2
PFT 07/22/24-FEV1 2.33-69%, FVC 4.02-86%, 21% improvement postbronchodilator, TLC under 90%, RV 115%, DLCO 70%, DLCO/VA 67%.� Mild to moderate obstruction, significant BD response, mild hyperinflation and mild reduction in diffusing capacity.
--- NOTE | 2025-02-21 08:36 | W.PN.UPDATE ---
Update Note
Progress Note Update
Doing better with respect to HR/BP
Levophed down
Awake/alert
Abd soft
Right groin/thigh soft
He has persistent bloody ABNER output
Heparin has been held. Last ptt >200
Plan to hold heparin
Repeat CBC and coags now
NPO
May need to return to OR for washout but given that he is stable from hemodynamic perspective perhaps we will obtain better hemostasis with continued heparin hold and Eliquis washout.
Will follow closely
PJF3
Vascular Surgery
[2025-02-21 09:05] LABS: Hematocrit 27.7 % (39.0-52.0); Hemoglobin 9.4 g/dL (13.0-18.0); Mean Corp Hgb Conc. 33.9 g/dL (33.0-37.0); Mean Corpuscular Volume 86.0 fL (80.0-94.0); Platelet Count 223 10^3/uL (130-400); Red Cell Dist. Width 14.3 % (11.5-14.5)
[2025-02-21 09:15] LABS: INR 1.40; PT 17.5 Sec (11.4-14.6)
[2025-02-21 09:17] LABS: APTT 83.6 Sec (23.4-35.0)
[2025-02-21] MEDS: TOPROL XL 12.5 MG PO (09:23)
[2025-02-21] MEDS: COLACE 100 MG PO ×2 (09:23→20:08)
[2025-02-21] MEDS: ZETIA 10 MG PO (09:23)
--- NOTE | 2025-02-21 09:48 | PTCARENOTE ---
Midline ordered per vascular. Heparin ordered to hold. Midline placed by VAT team, labs drawn and sent as ordered. 1 unit FFP ordered and infusing now. Vitals remain stable, levo weaning down. ABNER still with large amounts sanguinous output, vascular
team aware. See I+O for details. Cards at bedside, discussed plan of care. Pt continues with no complaints.
--- NOTE | 2025-02-21 10:51 | PTCARENOTE ---
PRBC 1 unit ordered and given, no s/s transfusion reaction noted.
[2025-02-21 11:51] LABS: Troponin I 0.559 ng/ml
[2025-02-21 11:52] LABS: Glucose - Point of Care 171 mg/dl (70-99)
--- NOTE | 2025-02-21 11:52 | W.PN.UPDATE ---
Update Note
Progress Note Update
ABNER output persists, bloody
Patient stable but has some right groin discomfort
Right groin now more full and was soft/flat previously.
Will go to the OR now for washout and evacuation of hematoma.
Updated on the plan
Patient agrees with this plan.
PJF3
Vascular Surgery
--- NOTE | 2025-02-21 12:02 | PTCARENOTE ---
Pt's groin hematoma noted to be enlarging, PLASTIC SURGERY TECHNICIAN Kalyn notified, arrived to bedside with Dr. Ivan, assessed....decision made to take pt back to OR for washout. Pt verbalized understanding and agreement. Pt taken to OR with 2 aquatic centre manager at 12:00. Glasses
kept in ICU [id number].
[2025-02-21 12:47] LABS: ACT-LR - POC 126 Seconds (116-155)
--- NOTE | 2025-02-21 13:29 | OR.RPT ---
Operative Report
Operative Report
Date of Operation: 02/21/2025
Pre Op Diagnosis: Right groin hematoma status post thrombectomy
Post Op Diagnosis: Right groin hematoma status post thrombectomy
Procedure: Exploration of right groin incision with evacuation and washout of hematoma
Surgeon: Tirso Ivan III, MD
Professional Engineer: Galindo Mao MD PGY2
Anesthesia: General
Complications: None
Estimated Blood Loss: 50 cc
History and Indications for Procedure: 74-year-old male status post thrombectomy of right lower extremity for acute limb ischemia. He was maintained on systemic anticoagulation. He developed a right groin hematoma and we brought him back to the
operating room for exploration and washout.
Procedure in Detail: Wei Lynn was correctly identified and placed supine on the operating table. After adequate induction of anesthesia his right groin was prepped and draped in usual sterile fashion. He received preoperative antibiotics.
A time out procedure was performed with the nursing and anesthesia staff confirming the patient's identity as well as the nature and laterality of the procedure.
We reopened the right groin incision by removing the ketty and layered Vicryl sutures. Hematoma along with hemostatic agent from the wound bed was evacuated. Self-retaining retractors were placed. The #10 ABNER drain was cut and removed from the
wound. The wound was irrigated thoroughly with copious amounts of warm saline solution. The wound was thoroughly explored along with the common femoral artery, profunda femoral artery and proximal superficial femoral artery. The arteriotomy
closure suture line was completely hemostatic. There was no bleeding identified. The arteries were circumferentially inspected and no surgical bleeding was identified. There was diffuse oozing from the wound bed. A small bleeding arterial branch
in the subcutaneous tissue was identified and successfully ligated with a metal clip. Hemostasis was achieved in the subcutaneous tissue of the wound bed with electrocautery. Gelfoam and thrombin along with Floseal were placed around the artery
deep in the wound bed. The wound was then packed with dry gauze. An intraoperative ACT was checked and was within normal limits at 126. After several minutes the gauze packing was removed. The wound was completely hemostatic and no bleeding was
identified.
Satisfied with this result we then began our closure. A large [place] drain was placed in the wound bed and brought out through a separate stab incision at the skin. This was secured in place at the skin level with a nylon suture. The wound was
then carefully closed in layers and sterile dressings were applied.
The patient tolerated the procedure well was taken to the recovery room in good condition.
Attestation: I was present and responsible for the entire procedure
Signed:
Tirso Ivan III, MD
Vascular Surgery
[facility]
--- NOTE | 2025-02-21 14:06 | PTCARENOTE ---
Pt rec'd from OR back into ICU 3365 as direct back-pt AOx3. Art line was placed in OR. Leveled and zeroed, correlating with non invasive cuff. Levo titrated per order down to 2 mcg/min. at bedside. VSS. Labs drawn and sent as ordered.
[2025-02-21 14:49] LABS: Hematocrit 25.9 % (39.0-52.0); Hemoglobin 8.8 g/dL (13.0-18.0); Mean Corp Hgb Conc. 34.0 g/dL (33.0-37.0); Mean Corpuscular Volume 84.9 fL (80.0-94.0); Platelet Count 170 10^3/uL (130-400); Red Cell Dist. Width 14.4 % (11.5-14.5)
[2025-02-21 14:53] LABS: Blood Urea Nitrogen 19 mg/dl (9-20); Calcium 7.2 mg/dl (8.4-10.2); Carbon Dioxide 23 mmol/L (22-30); Chloride 109 mmol/L (98-107); Estimated Creatinine Clearance 53 ml/min; Glucose 131 mg/dl (70-99); Potassium 4.4 mmol/L (3.5-5.1); Sodium 135 mmol/L (135-145); eGFR 53.07
--- NOTE | 2025-02-21 14:59 | CM ---
Patient in OR. Initial assessment completed with . Patient lives with and 26 y/o granddaughter in a 2 story home plus basement, B/B on 2nd and 1/2 bath on 1st, 2 steps to enter. PATIENT SUPPORT ASSOCIATE patient was independent in ADL's and ambulation, drives.
In the home there is a RW, walker with ski's, SPC, quad cane and commode No in-home services. Does have HC POA. No VA benefits. No psychiatric hospitalizations. PCP is Dr. Charles Stewart. Pharmacy is [facility] on [facility] in [place]. Discharge
POC: Anticipate home with no needs. Has had similar surgery in past. Declined HH RN services.
--- NOTE | 2025-02-21 15:04 | PTCARENOTE ---
Levophed tapered off, VSS. Echo completed. Orders rec'd from vascular team for regular diet, neurovascular checks Q1 hours x4, then Q4. Bedrest. Pt remains comfortable, no complaints, ordering lunch.
[2025-02-21 16:37] LABS: Troponin I 0.585 ng/ml
--- NOTE | 2025-02-21 17:34 | PTCARENOTE ---
1530: Report received from FELI Gonzales. Bedside handoff done. Right groin incision with scant old drainage. ABNER emptied for 20cc sanguinous fluid. Dr. Ivan updated. Neurovascular checks unchanged; bilateral feel cool, denies numbness or tingling. Left
radial art line transducer flushed and zeroed. Correlating with non invasive BP. Reports 3/10 pain to right groin incision; pain is tolerable per patient. NSR on environmental monitoring technician. Food tray delivered. Pt swallowing w/o issues. at bedside.
Plan to restart heparin gtt at 1800 at previous rate (1300u/hr).
[2025-02-21] MEDS: LIPITOR 40 MG PO (17:59)
[2025-02-21] MEDS: HEPARIN 25000 UNITS/250 ML IV (18:00)
--- NOTE | 2025-02-21 20:00 | PTCARENOTE ---
Pt Aox3, NSR on monitor, c/o some tenderness in right groin 07/29, medication offered but declined by pt. Right groin with Aquacel dressing, old drainage noted, site is soft and tender. Right dorsil and tibial pulses +2, foot is cool to touch, good
cap refill and patient has full sensation. ABNER drain with sanguinous output. Heparin gtt infusing per protocol. Ivan in place. Pt offers no other complaints at this time.
[2025-02-21 20:25] LABS: Hematocrit 23.3 % (39.0-52.0); Hemoglobin 8.1 g/dL (13.0-18.0)
[2025-02-21 21:06] LABS: Troponin I 0.329 ng/ml
--- NOTE | 2025-02-21 23:50 | PTCARENOTE ---
Assessment unchanged, trops trending down. Hemoglobin stable at 8.1.
[2025-02-22] VITALS (16 sets, daily range): BP systolic 135–169; BP diastolic 64–91; BMI 28.7
[2025-02-22 00:35] LABS: APTT 111.3 Sec (23.4-35.0)
[2025-02-22 04:52] LABS: APTT 139.0 Sec (23.4-35.0); Hematocrit 20.7 % (39.0-52.0); Hemoglobin 7.2 g/dL (13.0-18.0); Mean Corp Hgb Conc. 34.8 g/dL (33.0-37.0); Mean Corpuscular Volume 87.3 fL (80.0-94.0); Platelet Count 133 10^3/uL (130-400); Red Cell Dist. Width 14.8 % (11.5-14.5)
[2025-02-22 04:55] LABS: Blood Urea Nitrogen 17 mg/dl (9-20); Calcium 7.2 mg/dl (8.4-10.2); Carbon Dioxide 22 mmol/L (22-30); Estimated Creatinine Clearance 57 ml/min; Glucose 158 mg/dl (70-99); Potassium 4.6 mmol/L (3.5-5.1); Sodium 136 mmol/L (135-145); eGFR 58.01
[2025-02-22 05:00] LABS: Chloride 110 mmol/L (98-107)
[2025-02-22] MEDS: CALCIUM GLUCONATE 130 MG IV (05:21)
--- NOTE | 2025-02-22 06:16 | PTCARENOTE ---
Pt required 1 unit PRBCs, and calcium gluconate replacement.
[2025-02-22] MEDS: ZETIA 10 MG PO (07:32)
[2025-02-22] MEDS: LOW STRENGTH ASPIRIN 81 MG PO (07:32)
[2025-02-22] MEDS: COLACE 100 MG PO ×2 (07:32→19:23)
[2025-02-22] MEDS: TOPROL XL 12.5 MG PO (07:32)
--- NOTE | 2025-02-22 07:42 | PTCARENOTE ---
Rec'd pt at 0700, handoff assessment done at bedside with nightshift RN. Pt AAOx3, follows commands, VALDEZ. Monitor SR/1st degree AVB. SBP 140-160's via left radial a-line, am meds given. Lungs CTA. +BS, abd soft/nt. Ivan draining yellow urine. Right
groin with aquacell intact, old drainage noted/marked, area soft. Ecchymosis to right inner thigh/groin area and right side of scrotum. Right groin ABNER with sang drainage to bulb. +palpable DP/PT pulses, feet pink and warm.
--- NOTE | 2025-02-22 07:50 | W.PN.INTV ---
Today's Communication / Plan
Recommendations
- Packed RBC x 1, follow-up H&H
Assessment
-
Patient is s/p right femoral artery cutdown and thrombectomy of right iliac limb of aortic stent graft as well as thrombectomy of right superficial femoral artery, popliteal artery tibial arteries right groin incision, by vascular surgery service,
POD # 2
02/21, patient developed hematoma at the incision site as well as increased output from ABNER drain, was taken back to the OR. S/p Exploration of right groin incision with evacuation and washout of hematoma: POD # 1
Continue observation following procedure
Follow neurovascular checks per protocol
ASA, Metoprolol and statin on board. Heparin infusing
Follow BP monitoring and parameters as set by primary team
Cardiac history reviewed
Monitor on telemetry
CUrrent MAP 104
Pain control per protocol
RASS goal 0
Known history of COPD/asthma. Follows up with [facility] pulmonary clinic. Currently stable
CXR reviewed indicating no acute disease
No prior PFTs for review
Encouraged IS
Diet advancement per protocol
Aspiration precautions
GI prophylaxis: None
Cr at baseline, follow UO
Critical I/Os
Void trials
Replete electrolytes as needed
No signs/symptoms suspicious for infectious etiology at this time
Will observe off antibiotics for now
Follow temperatures/CBC
#. Acute blood loss Anemia with local hematoma and increased ABNER drain bleeding 02/21. Patient taken back to the OR for surgical exploration and hematoma evacuation and placement of clip at a small bleeding vessel. Doing well since. Minimal
serosanguineous output in ABNER drain, local hematoma resolved. Does not appear to be actively bleeding clinically
Hb , 12.3 > 11.3 > 9.8 > 10.0 > 7 this AM. s/p PRBC x 3 units 02/21, getting 4th PRBC 02/22
- Has been on IV heparin drip and aspirin. Tolerating well
DVT prophylaxis: Currently fully anticoagulated with IV heparin
Other medical diagnoses:
- Paroxysmal Atrial Fibrillation
- H/o CAD, s/p PCI (08/2022). Cardiology service on case, minimal troponin leak noted
- HTN, HLD
- h/o AAA. s/p repair ()1
- Moderate MR
- COPD/Asthma. Follows up [facility], Dr. Castro. Resume out patient follow up.
- Near syncope/pale/diaphoresis/vomiting x1 in 09/2022 during rehab. ?Vaso-vagal
- H/o Smoking, age [age]
- CKD. stable Cr, 1.6 today
- Acute blood loss anemia, suspect vasovagal episode 02/21. Patient had symptoms of bradycardia, hypotension, nausea and near syncopal feeling. Suspect this is triggered by increased sanguinous discharge from the right groin drain. Patient has
enlarging hematoma in the right groin as well as significant sanguinous drainage from the drain. Patient was taken back to the OR for surgical evacuation exploration. No further symptoms since
Critical Care time [48 ] mins -- The patient is admitted for acute critical illness for the treatment of vital organ failure and/or prevention of further life-threatening conditions. Total care includes time spent in review of history, physical
exam, medications, hemodynamic/ventilator parameters, laboratory data, imaging and discussion with house staff, pharmacy, respiratory therapy, marker machine attendant, and nursing
Data:
CT Abd 02/2025: Thrombosis with high-grade obstruction of the proximal 4 cm segment of the right bifurcated limb of the aortic stent graft. Intensity of intraluminal contrast opacification in the right lower extremity arterial system is diminished.
At the approximate level of the popliteal artery, intraluminal contrast enhancement, and therefore flow, appears relatively absent throughout the popliteal and trifurcation vessels. Presumably, this is related to markedly slow flow, as opposed to
distal thrombosis.
No significant change in size of the [place] infrarenal abdominal aortic aneurysm sac.
ECHO 10/2024: Normal left ventricular size and systolic function. Mild concentric left
ventricular hypertrophy. No regional wall motion abnormalities are seen. LV
ejection fraction is 55-60% by volumetric assessment. Normal diastolic
function.
Normal right ventricular size and function.
Thickened mitral valve leaflets with mild to moderate mitral regurgitation.
Trace tricuspid regurgitation. Estimated pulmonary artery pressure of 32 mmHg
assuming a right atrial pressure of 3 mmHg.
Mildly Dilated Sinus of Valsalva-3.9 cm, Sinotubular junction-3.2 cm and
ascending aorta-4.1 cm.
Compared to previous echo 02/01/24, the LVEF and mitral valve are stable. The
ascending aortic size measures slightly larger increasing from 3.8 cm to 4.1
cm.
LDCT 03/2024: Tiny scattered right upper lobe tree-in-bud/groundglass opacities most in keeping with a low-grade infectious/inflammatory bronchiolitis.
Mild fusiform aneurysmal dilatation of the ascending thoracic aorta measuring up to 4.1 cm
LUNG-RADS category: 2
PFT 07/22/24-FEV1 2.33-69%, FVC 4.02-86%, 21% improvement postbronchodilator, TLC under 90%, RV 115%, DLCO 70%, DLCO/VA 67%.� Mild to moderate obstruction, significant BD response, mild hyperinflation and mild reduction in diffusing capacity.
Subjective Dataa
Subjective Data
Date of Service:
Date of Service: February 22, 2025
Objective Data
Data Reviewed
Vital Signs / I&O / Oxygen:
Vital Signs
Temp Pulse Resp BP Pulse Ox
97.6 F 70 16 147/86 95
02/22/25 07:15 02/22/25 07:15 02/22/25 07:15 02/22/25 06:26 02/22/25 07:15
Intake and Output
02/21/25 02/22/25 02/23/25
06:59 06:59 06:59
Intake Total 3269 / 3889 4435.0 / 4445.0
Output Total 1605 / 1685 1885 / 1885
Balance 1664 / 2204 2550.0 / 2560.0
SaO2 95
Labs/Micro/Reports
Lab Data
02/22/25 04:09
Laboratory Results
02/21/25 02/21/25 02/22/25
08:55 12:30 00:07
PT 17.5 H
INR 1.40
APTT 83.6 H Cancelled 111.3 H
02/22/25
04:09
PT
INR
APTT 139.0 H
--- NOTE | 2025-02-22 08:42 | W.PN.CARDCBS ---
Today's Communication / Plan
-
Given working diagnosis of cardioembolic source for arterial thrombosis and that patient had been compliant with Eliquis, suggest we change to a anticoagulant with different mechanism of action.
When okay with vascular to change from intravenous heparin to oral anticoagulation would substitute Pradaxa (direct thrombin inhibitor) for Eliquis (factor Xa inhibitor)
Pradaxa dose should be 150 mg twice daily with first dose given immediately at discontinuation of IV heparin
Impression / Plan
-
Primary Rn Maternity: Dr. Urias
Assessment:
Hypotension
Bradycardia
Abnormal EKG
Mildly elevated troponin
Urgent right lower extremity thrombectomy 02/20/2025
endovascular repair of type Ib endo leak 01/27/2025
paroxysmal atrial fibrillation/atrial flutter, diagnosed October 2024
Relative hypotension
Acute CHF, unknown type, suspected diastolic
Fall 11/10/24
CAD with NSTEMI status post PCI to RCA and OM 05/2022 with ballooning of OM 2 as small and not amenable to PCI-performed at [facility]
Hypertension
Hyperlipidemia
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
Prostate cancer status post prostatectomy
GERD
ECHO 02/01/2024: EF 55 to 60%, no regional wall motion abnormalities noted, mild concentric LVH, mild to moderate MR
ECHO 11/13/24: EF 55 to 60% with mild to moderate MR, PAP 32 mmHg, mildly dilated ascending aorta 4.1 cm
Plan:
Cardiology consulted for acute hypotension and bradycardia with presyncope following vascular procedure, EKG with with nonspecific ST depressions
No chest pain or shortness of breath this hospital stay
Troponin peaked at 0.585, then trended down to 0.329
Serial ECGs have demonstrated stability
Echocardiogram obtained February 21, 2025 shows no wall motion abnormalities, normal LVEF, no significant change from prior
Blood pressure has improved, now off pressors.
No plan for inpatient ischemic eval at this point. This can be further considered as an outpatient
Recommendations for today:
Agree with plan for red blood cell transfusion given hemoglobin down to 7.2 today
He remains on intravenous heparin.
Given working diagnosis of cardioembolic source for arterial thrombosis and that patient had been compliant with Eliquis, suggest we change to a anticoagulant with different mechanism of action.
When okay with vascular to change from intravenous heparin to oral anticoagulation would substitute Pradaxa (direct thrombin inhibitor) for Eliquis (factor Xa inhibitor)
Pradaxa dose should be 150 mg twice daily with first dose given immediately at discontinuation of IV heparin
Maintaining sinus rhythm
Continue amiodarone for rhythm control
Continue Toprol-XL for additional rate control should there be breakthroughs of atrial fibrillation or atrial flutter
Maintain atorvastatin as well as Zetia for dyslipidemia
Follows with nephrology in outpatient setting, on Edarbi (ARB) for BP control
Can resume once he is felt to be hemodynamically stable post surgery.
I will have our office reach out to him to arrange a follow-up outpatient appointment within the next month or so.
Please call us back if we can be of any further assistance.
Total time spent today was 50 minutes in preparing to see the patient, seeing the patient and coordination of care. This included review of recent laboratory evaluations, cardiact testing, imaging studies, primary care rtecords, specialty
consultations, hospital records, as well as personally interviewing and examining the patient, which included discussion of their tests, review/ordering medications, and communicating with other healthcare professionals and also treatment planning
as well as counseling.
Total time does not include separately billed tests performed on this date of service.
Progress Note - Rn Maternity
Subjective
Date of Service: February 22, 2025
He tells me he has no chest pain shortness of breath palpitations or dizziness today.
Objective
Labs:
02/22/25 04:09
Labs
Hgb Cancelled 02/22/25 09:00
Hct Cancelled 02/22/25 09:00
Plt Count 133 10^3/uL (130-400) D 02/22/25 04:09
PT 17.5 Sec (11.4-14.6) H 02/21/25 08:55
INR 1.40 02/21/25 08:55
APTT 139.0 Sec (23.4-35.0) H 02/22/25 04:09
Sodium 136 mmol/L (135-145) 02/22/25 04:09
Potassium 4.6 mmol/L (3.5-5.1) 02/22/25 04:09
BUN 17 mg/dl (9-20) 02/22/25 04:09
Creatinine 1.3 mg/dL (0.7-1.3) 02/22/25 04:09
Glucose 158 mg/dl (70-99) H 02/22/25 04:09
Troponins
02/21/25 02/21/25 02/21/25
05:15 06:09 11:04
Troponin I Cancelled 0.055 H* 0.559 H* D
02/21/25 02/21/25
15:55 20:14
Troponin I 0.585 H* 0.329 H* D
Vital Signs and I&O:
Vital Signs
Temp Pulse Resp BP Pulse Ox
97.7 F 67 20 169/77 95
02/22/25 08:30 02/22/25 08:30 02/22/25 08:30 02/22/25 08:30 02/22/25 07:15
Vital Signs
Temp Pulse Resp BP Pulse Ox
97.7 F 67 20 169/77 95
02/22/25 08:30 02/22/25 08:30 02/22/25 08:30 02/22/25 08:30 02/22/25 07:15
Intake & Output
02/20/25 02/21/25 02/22/25 02/23/25
06:59 06:59 06:59 06:59
Intake Total 3269 / 3889 4435.0 / 4445.0 270 / 270
Output Total 1605 / 1685 1885 / 1885
Balance 1664 / 2204 2550.0 / 2560.0 270 / 270
Physical Exam
Physical Exam
Well-appearing no acute distress
Regular rate and rhythm with normal S1 and S2, no S3 no S4 is a grade 1/6 apical holosystolic murmur no rubs.
Lungs are clear to auscultation bilaterally
Abdomen soft nontender nondistended with normoactive bowel sounds.
Distal extremities warm and dry and +2 pulses bilaterally
--- NOTE | 2025-02-22 08:45 | W.PN.VS ---
Today's Communication / Plan
-
as above
Assessment/Plan
-
-Continue heparin gtt
-ok for OOB with assistance
-d/c a line
-would keep in unit today for monitoring
Subjective Data
-
Date of Service: February 22, 2025
No acute events. Says leg feels a ton better compared to previously.
Objective Data
-
Vital Signs
Temp Pulse Resp BP Pulse Ox
97.7 F 67 20 169/77 95
02/22/25 08:30 02/22/25 08:30 02/22/25 08:30 02/22/25 08:30 02/22/25 07:15
Intake and Output
02/21/25 02/22/25 02/23/25
06:59 06:59 06:59
Intake Total 3269 / 3889 4435.0 / 4445.0 270 / 270
Output Total 1605 / 1685 1885 / 1885
Balance 1664 / 2204 2550.0 / 2560.0 270 / 270
Intake:
Oral fluids 450 / 930 960 / 960
IV fluids (Total) 2319 / 2459 2965.0 / 2975.0 20 /
Heparin 119 / 119 140 / 150 20 / 20
Nss 1,000 ml @ 125 mls/hr IV . 1125 / 1250 2750 / 2750
Q8H FLACA Rx#:[id number]
bolus 1000 / 1000
levo 75 / 90 75.0 / 75.0
Amount instilled into Drain (
Total)
Right Leg Arturo-Colindres
Blood Products 500 / 500
Packed red blood cells 500 / 500
Blood Product Amount Infused ( 500 / 500 250 / 250
mL)
Ffp24 Divided Unit Part 1 Unit 250 / 250
[id number]
Packed Rbc Leukoreduced Unit 250 / 250
[id number]
Packed Rbc Leukoreduced Unit 0 / 0 250 / 250
[id number]
Output:
Drain Output (Total) 1125 / 1175 750 / 750
Right Leg Arturo-Colindres 1125 / 1175 750 / 750
Urine, Ivan 480 / 510 1135 / 1135
Lab Results
02/22/25 04:09
Calcium 7.2 mg/dl (8.4-10.2) L 02/22/25 04:09
Phosphorus 3.4 mg/dl (2.5-4.5) 02/21/25 05:00
Magnesium 2.5 mg/dl (1.6-2.3) H 02/21/25 05:00
Total Bilirubin 0.5 mg/dl (0.2-1.3) 02/20/25 18:57
AST 19 U/L (17-59) 02/20/25 18:57
ALT 15 U/L (0-50) 02/20/25 18:57
Alkaline Phosphatase 71 U/L (38-126) 02/20/25 18:57
Total Protein 6.3 g/dl (6.3-8.2) 02/20/25 18:57
Albumin 3.6 g/dl (3.5-5.0) 02/20/25 18:57
Physical Exam
-
NAD
groin incision c/d/i
ABNER serosang
+dp/pt signals bilaterally. feet warm. motor/sensory in tact
--- NOTE | 2025-02-22 12:33 | PTCARENOTE ---
Pt OOB to BSC with min assist of 2, gait unsteady. in to visit, updated. No changes in assessment.
[2025-02-22 12:44] LABS: Hematocrit 24.9 % (39.0-52.0); Hemoglobin 8.4 g/dL (13.0-18.0)
[2025-02-22 12:53] LABS: APTT 78.3 Sec (23.4-35.0)
[2025-02-22] MEDS: HEPARIN 25000 UNITS/250 ML IV (15:40)
[2025-02-22] MEDS: LIPITOR 40 MG PO (17:49)
[2025-02-22 18:10] LABS: APTT 66.4 Sec (23.4-35.0)
[2025-02-22] MEDS: HEPARIN 3800 UNITS IV (18:46)
--- NOTE | 2025-02-22 19:30 | PTCARENOTE ---
Resumed care of pt this evening. Received pt on heparin gtt infusing at 1200 units/hr via right midline IV site. Neurovascular checks performed at bedside w/ day shift RN. B/L pedal pulses are palpable, pt denies numbness/tingling sensation, pt can
move b/l feet/wiggle toes, and pt's feet are warm to palpation. Pt denies pain at this time. Pt is A&Ox3, can move all 4 extremities, and can make needs known. Pt is in NSR on tele monitor with a regular apical and has no edema. Pt on RA and is
satting at 95% pulse ox. On auscultation pt's lungs sound diminished at the bases bilaterally but otherwise clear. Pt's abdomen is round obese and has active BS. Pt has a right sided ABNER drain that is draining a small amount of serosanguineous
drainage. Pt has 2 aquacell dressings: one at the right groin and the other at the rt upper thigh area. Both aquacell dressings are intact w/ some old drainage noted.
[2025-02-23] VITALS (24 sets, daily range): BP systolic 117–169; BP diastolic 70–92; BMI 28.6
--- NOTE | 2025-02-23 00:30 | PTCARENOTE ---
Neurovascular checks performed and remained unchanged from previous assessment. Surgical dressing intact with small amount of sanguineous drainage noted. Pt has some tenderness upon palpation at surgical site but states does not require any pain
medication at this time.
[2025-02-23 02:02] LABS: APTT 99.1 Sec (23.4-35.0)
[2025-02-23 03:55] LABS: Hematocrit 24.2 % (39.0-52.0); Hemoglobin 8.1 g/dL (13.0-18.0); Mean Corp Hgb Conc. 33.5 g/dL (33.0-37.0); Mean Corpuscular Volume 90.0 fL (80.0-94.0); Platelet Count 130 10^3/uL (130-400); Red Cell Dist. Width 14.9 % (11.5-14.5)
[2025-02-23 04:21] LABS: Blood Urea Nitrogen 15 mg/dl (9-20); Calcium 8.1 mg/dl (8.4-10.2); Carbon Dioxide 26 mmol/L (22-30); Chloride 110 mmol/L (98-107); Estimated Creatinine Clearance 57 ml/min; Glucose 98 mg/dl (70-99); Potassium 4.5 mmol/L (3.5-5.1); Sodium 137 mmol/L (135-145); eGFR 58.01
[2025-02-23] MEDS: TYLENOL 650 MG PO ×2 (05:55→15:10)
[2025-02-23] MEDS: TOPROL XL 12.5 MG PO (08:03)
[2025-02-23] MEDS: ZETIA 10 MG PO (08:03)
[2025-02-23] MEDS: LOW STRENGTH ASPIRIN 81 MG PO (08:03)
[2025-02-23] MEDS: COLACE 100 MG PO ×2 (08:03→20:31)
--- NOTE | 2025-02-23 08:06 | W.PN.VS ---
Today's Communication / Plan
-
as above
Assessment/Plan
-
-Given significant ABNER output increase will hold heparin for 4 hours and reevaluate.
-ok for OOB with assistance
-given continued oozing would keep in unit today for monitoring
Subjective Data
-
Date of Service: February 23, 2025
Overnight he had oozing from the a line site, his PICC and his ABNER output increased. This am he says he feels good and his legs feel great.
Objective Data
-
Vital Signs
Temp Pulse Resp BP Pulse Ox
97.8 F 65 18 127/70 92
02/23/25 07:38 02/23/25 07:00 02/23/25 07:00 02/23/25 06:50 02/23/25 06:50
Intake and Output
02/22/25 02/23/25 02/24/25
06:59 06:59 06:59
Intake Total 4435.0 / 4445.0 874 / 874
Output Total 1884 2640 / 2640
Balance 2550.0 / 2435.0 -1766 / -1766
Intake:
Oral fluids 960 / 960 360 / 360
IV fluids (Total) 2965.0 / 2975.0 264 / 264
Heparin 140 / 150 264 / 264
Nss 1,000 ml @ 125 mls/hr IV . 2750 / 2750
Q8H FLACA Rx#:[id number]
levo 75.0 / 75.0
Amount instilled into Drain (
Total)
Right Leg Arturo-Colindres
Blood Product Amount Infused ( 500 / 500 250 / 250
mL)
Ffp24 Divided Unit Part 1 Unit 250 / 250
[id number]
Packed Rbc Leukoreduced Unit 250 / 250
[id number]
Packed Rbc Leukoreduced Unit 0 / 0 250 / 250
[id number]
Output:
Drain Output (Total) 750 / 750 355 / 355
Right Leg Arturo-Colindres 750 / 750 355 / 355
Urine, Ivan 1135 / 1260 700 / 700
Urine, Voided 1585 / 1585
Other:
Number of approximated MODERATE 1
amounts of urine
Lab Results
02/23/25 03:40
02/23/25 03:40
Calcium 8.1 mg/dl (8.4-10.2) L 02/23/25 03:40
Phosphorus 3.4 mg/dl (2.5-4.5) 02/21/25 05:00
Magnesium 2.5 mg/dl (1.6-2.3) H 02/21/25 05:00
Total Bilirubin 0.5 mg/dl (0.2-1.3) 02/20/25 18:57
AST 19 U/L (17-59) 02/20/25 18:57
ALT 15 U/L (0-50) 02/20/25 18:57
Alkaline Phosphatase 71 U/L (38-126) 02/20/25 18:57
Total Protein 6.3 g/dl (6.3-8.2) 02/20/25 18:57
Albumin 3.6 g/dl (3.5-5.0) 02/20/25 18:57
Physical Exam
-
NAD
No hematoma in groin. ABNER sanguineous
+dp/pt signals
a line site ok
--- NOTE | 2025-02-23 08:17 | PTCARENOTE ---
Rec'd pt at 0700. Pt AAOx3, follows commands, VALDEZ. Monitor SR with occas PVCs. Lungs CTA. +BS, abd soft/nt. Right groin aquacell with old drainage noted. Right groin ABNER dressing saturated with blood and leaking onto bed, ABNER with mod amt sang
drainage to bulb. Dr. Romo and Dr. Moore notified, Heparin placed on hold at 0800, labs sent. Pt ambulated to bathroom, CHG bath performed, back in bed at this time.
[2025-02-23 08:24] LABS: INR 1.11; PT 14.6 Sec (11.4-14.6)
[2025-02-23 08:25] LABS: Fibrinogen 261 MG/DL (199-459)
[2025-02-23 08:27] LABS: APTT 82.5 Sec (23.4-35.0)
--- NOTE | 2025-02-23 09:44 | VATNOTE ---
Patient with bleeding at multiple sites, midline dressing saturated. Redressed with surgifoam.
--- NOTE | 2025-02-23 10:07 | W.PN.INTV ---
Today's Communication / Plan
Recommendations
- Serial H&H
- Check INR as well as fibrinogen in view of ongoing bleeding
- Continue to monitor in the ICU
Assessment
-
Patient is s/p right femoral artery cutdown and thrombectomy of right iliac limb of aortic stent graft as well as thrombectomy of right superficial femoral artery, popliteal artery tibial arteries right groin incision, by vascular surgery service,
POD # 3
02/21, patient developed hematoma at the incision site as well as increased output from ABNER drain, was taken back to the OR. S/p Exploration of right groin incision with evacuation and washout of hematoma: POD # 2
Continue observation following procedure
Follow neurovascular checks per protocol
ASA, Metoprolol and statin on board. Heparin on hold in view of increased local bleeding
Follow BP monitoring and parameters as set by primary team
Cardiac history reviewed
Monitor on telemetry
Current MAP 87, saturating 94% on room air
Pain control per protocol
RASS goal 0
Known history of COPD/asthma. Follows up with [facility] pulmonary clinic. Currently stable
CXR reviewed indicating no acute disease
No prior PFTs for review
Encouraged IS
Diet advancement per protocol
Aspiration precautions
GI prophylaxis: None
Cr at baseline, follow UO
Critical I/Os
Void trials
Replete electrolytes as needed
No signs/symptoms suspicious for infectious etiology at this time
Will observe off antibiotics for now
Follow temperatures/CBC
#. Acute blood loss Anemia with local hematoma and increased ABNER drain bleeding 02/21. Patient taken back to the OR for surgical exploration and hematoma evacuation and placement of clip at a small bleeding vessel. Minimal serosanguineous output in
ABNER drain, local hematoma resolved after repeat trip to OR.
Hb , 12.3 > 11.3 > 9.8 > 10.0 > 7 this AM. s/p PRBC x 3 units 02/21, got 4th PRBC 02/22
- 02/23, again increased sanguinous output noted from ABNER drain, slightly increased swelling in the right groin area. Also oozing noted from arterial line site and midline catheter site
- Heparin has been placed on hold. Check fibrinogen and PT/INR to evaluate for any transfusion related coagulopathy. Vascular surgery aware, continue to monitor in ICU
DVT prophylaxis: Currently fully anticoagulated with IV heparin
Other medical diagnoses:
- Paroxysmal Atrial Fibrillation
- H/o CAD, s/p PCI (08/2022). Cardiology service on case, minimal troponin leak noted
- HTN, HLD
- h/o AAA. s/p repair ()1
- Moderate MR
- COPD/Asthma. Follows up [facility], Dr. Castro. Resume out patient follow up.
- Near syncope/pale/diaphoresis/vomiting x1 in 09/2022 during rehab. ?Vaso-vagal
- H/o Smoking, age [age]
- CKD. stable Cr, 1.6 today
- Acute blood loss anemia, suspect vasovagal episode 02/21. Patient had symptoms of bradycardia, hypotension, nausea and near syncopal feeling. Suspect this was triggered by increased sanguinous discharge from the right groin drain. Patient has
enlarging hematoma in the right groin as well as significant sanguinous drainage from the drain. Patient was taken back to the OR for surgical evacuation exploration. No further symptoms since
Critical Care time [45 ] mins -- The patient is admitted for acute critical illness for the treatment of vital organ failure and/or prevention of further life-threatening conditions. Total care includes time spent in review of history, physical
exam, medications, hemodynamic/ventilator parameters, laboratory data, imaging and discussion with house staff, pharmacy, respiratory therapy, records section supervisor, and nursing
Data:
CT Abd 02/2025: Thrombosis with high-grade obstruction of the proximal 4 cm segment of the right bifurcated limb of the aortic stent graft. Intensity of intraluminal contrast opacification in the right lower extremity arterial system is diminished.
At the approximate level of the popliteal artery, intraluminal contrast enhancement, and therefore flow, appears relatively absent throughout the popliteal and trifurcation vessels. Presumably, this is related to markedly slow flow, as opposed to
distal thrombosis.
No significant change in size of the [place] infrarenal abdominal aortic aneurysm sac.
ECHO 10/2024: Normal left ventricular size and systolic function. Mild concentric left
ventricular hypertrophy. No regional wall motion abnormalities are seen. LV
ejection fraction is 55-60% by volumetric assessment. Normal diastolic
function.
Normal right ventricular size and function.
Thickened mitral valve leaflets with mild to moderate mitral regurgitation.
Trace tricuspid regurgitation. Estimated pulmonary artery pressure of 32 mmHg
assuming a right atrial pressure of 3 mmHg.
Mildly Dilated Sinus of Valsalva-3.9 cm, Sinotubular junction-3.2 cm and
ascending aorta-4.1 cm.
Compared to previous echo 02/01/24, the LVEF and mitral valve are stable. The
ascending aortic size measures slightly larger increasing from 3.8 cm to 4.1
cm[address]
LDCT 03/2024: Tiny scattered right upper lobe tree-in-bud/groundglass opacities most in keeping with a low-grade infectious/inflammatory bronchiolitis.
Mild fusiform aneurysmal dilatation of the ascending thoracic aorta measuring up to 4.1 cm
LUNG-RADS category: 2
PFT 07/22/24-FEV1 2.33-69%, FVC 4.02-86%, 21% improvement postbronchodilator, TLC under 90%, RV 115%, DLCO 70%, DLCO/VA 67%.� Mild to moderate obstruction, significant BD response, mild hyperinflation and mild reduction in diffusing capacity.
Subjective Dataa
Subjective Data
Date of Service:
Date of Service: February 23, 2025
Subjective:
Patient comfortable lying in bed in no acute distress
Review of Systems
Genitourinary: Other (All 14 systems reviewed and negative except as stated above in the history of present illness.)
Objective Data
Data Reviewed
Vital Signs / I&O / Oxygen:
Vital Signs
Temp Pulse Resp BP Pulse Ox
97.8 F 79 22 149/87 95
02/23/25 07:38 02/23/25 08:00 02/23/25 08:00 02/23/25 08:00 02/23/25 08:00
Intake and Output
02/22/25 02/23/25 02/24/25
06:59 06:59 06:59
Intake Total 4435.0 / 4445.0 874 / 886
Output Total 1884 2640 / 2640
Balance 2550.0 / 2435.0 -1766 / -1754
SaO2 95
Physical Exam
General: Comfortable
HEENT: Normocephalic (Pale conjunctiva)
Cardiovascular: S1-S2 and Other (Slightly increased left groin area swelling as well as increased sanguinous drainage in the ABNER drain, increased from 1004. Low-grade oozing also noted from A-line site as well as midline.)
Respiratory: Clear
GI: Soft and Non Distended
Neurology: Awake and Alert
Skin: Warm
Labs/Micro/Reports
Lab Data
02/23/25 03:40
02/23/25 03:40
Laboratory Results
02/22/25 02/22/25 02/23/25
12:34 17:52 01:43
PT
INR
APTT 78.3 H 66.4 H 99.1 H
02/23/25
08:01
PT 14.6
INR 1.11
APTT 82.5 H
--- NOTE | 2025-02-23 10:20 | PTCARENOTE ---
Right groin/ABNER dressings removed (ok per Dr. Romo). Incision site C/D/I with ketty in place, approximated. Old ABNER site and current ABNER site continuously oozing bloody drainage. Pressure held to old ABNER puncture site until hemostasis achieved and
small pressure dressing applied. Small pressure dressing applied to current ABNER insertion site which continues to ooze. Dr. Romo notified.
--- NOTE | 2025-02-23 10:22 | CM ---
Chart reviewed, pt has PICC and ABNER drain. Currently on IV Heparin.
Discharge plan: Home, no needs. Declined HH.
CM will continue to follow.
--- NOTE | 2025-02-23 11:43 | PTCARENOTE ---
~1130-CV PA in room to assess oozing ABNER sites. Old ABNER puncture site remains intact with no oozing. Current ABNER site oozing around insertion site, stitches placed to current ABNER insertion site by PA.
--- NOTE | 2025-02-23 14:42 | PTCARENOTE ---
Dr. Romo updated. 1430- Heparin gtts restarted at 1200units/hr. Pt and updated on plan of care.
--- NOTE | 2025-02-23 17:12 | PTCARENOTE ---
No increased oozing noted from ABNER site since Heparin gtts resumed. ABNER with decreased sang output to bulb. Pt ambulated to bathroom, small brown BM. Back to bed at this time. at bedside.
[2025-02-23] MEDS: LIPITOR 40 MG PO (17:35)
[2025-02-23] MEDS: HEPARIN 25000 UNITS/250 ML IV (20:32)
[2025-02-23 21:01] LABS: APTT 71.9 Sec (23.4-35.0)
[2025-02-23] MEDS: HEPARIN 3800 UNITS IV (21:43)
[2025-02-24] VITALS (29 sets, daily range): BP systolic 106–167; BP diastolic 71–99; BMI 28.4
[2025-02-24 04:27] LABS: Hematocrit 22.0 % (39.0-52.0); Hemoglobin 7.2 g/dL (13.0-18.0); Mean Corp Hgb Conc. 32.7 g/dL (33.0-37.0); Mean Corpuscular Volume 89.1 fL (80.0-94.0); Platelet Count 115 10^3/uL (130-400); Red Cell Dist. Width 14.9 % (11.5-14.5)
[2025-02-24] MEDS: ZOFRAN 4 MG IV (04:27)
[2025-02-24 04:42] LABS: Blood Urea Nitrogen 15 mg/dl (9-20); Calcium 8.0 mg/dl (8.4-10.2); Carbon Dioxide 27 mmol/L (22-30); Chloride 107 mmol/L (98-107); Estimated Creatinine Clearance 57 ml/min; Glucose 109 mg/dl (70-99); Potassium 4.3 mmol/L (3.5-5.1); Sodium 136 mmol/L (135-145); eGFR 58.01
[2025-02-24 05:25] LABS: APTT 122.3 Sec (23.4-35.0)
[2025-02-24] MEDS: TOPROL XL 12.5 MG PO (08:04)
[2025-02-24] MEDS: LOW STRENGTH ASPIRIN 81 MG PO (08:04)
[2025-02-24] MEDS: ZETIA 10 MG PO (08:05)
[2025-02-24] MEDS: COLACE 100 MG PO ×2 (08:05→22:56)
[2025-02-24] MEDS: TYLENOL 650 MG PO (08:06)
[2025-02-24] MEDS: PROTONIX 40 MG PO (08:47)
--- NOTE | 2025-02-24 09:38 | W.PN.VS ---
Addendum entered and electronically signed by Tirso Ivan III, MD 02/24/25 13:01:
This patient was seen and examined in collaboration with JL Clark. I agree with the history and physical exam as well as the assessment and plan. I have the following additions:
He is comfortable sitting in the chair
Events from the weekend noted
ABNER output currently is minimal and decreased from prior
Right groin is soft and clean
Palpable right DP pulse
Continue heparin drip with therapeutic PTT goal
Leave ABNER in place
PT/OT
Agree with continued ICU monitoring for now
Repeat hemoglobin after blood transfusion
Signed:
Tirso Ivan III, MD
Vascular Surgery
[facility]
Original Note:
Today's Communication / Plan
-
Seen and assessed with Dr. Ivan
Assessment/Plan
-
Postop day 4 thrombectomy
Postop day 3 right groin washout
Plan:
Receiving 1 unit of blood now, ordered second unit per today
Redraw H&H at 2 PM
Continue ABNER monitoring I&O
Appreciate cardiology input
Continue heparin drip -monitoring for bleeding
Continue ICU for now
Subjective Data
-
Date of Service: February 24, 2025
Patient seen at bedside same Dr. Ivan. Patient offers complaints of 5 out of 10 headache this morning. Recently medicated with Tylenol. No other events overnight. Currently receiving 1 unit PRBC
Objective Data
-
Vital Signs
Temp Pulse Resp BP Pulse Ox
98.3 F 79 10 138/83 97
02/24/25 09:11 02/24/25 09:11 02/24/25 09:11 02/24/25 09:11 02/24/25 08:03
Intake and Output
02/23/25 02/24/25 02/25/25
06:59 06:59 06:59
Intake Total 874 / 886 178 / 190 286 / 286
Output Total 2640 / 2640 1445 / 1445 175 / 175
Balance -1766 / -1754 -1267 / -1255 111 / 111
Intake:
Oral fluids 360 / 360
IV fluids (Total) 264 / 276 178 / 190 36 / 36
Heparin 264 / 276 178 / 190 36 / 36
Blood Product Amount Infused ( 250 / 250 0 / 0 250 / 250
mL)
Packed Rbc Leukoreduced Unit 250 / 250
[id number]
Packed Rbc Leukoreduced Unit 0 / 0 250 / 250
[id number]
Output:
Drain Output (Total) 355 / 355 120 / 120
Right Leg Arturo-Colindres 355 / 355 120 / 120
Urine, Ivan 700 / 700
Urine, Voided 1585 / 1585 1325 / 1325 175 / 175
Other:
Number of approximated MODERATE 1 1
amounts of urine
Lab Results
02/24/25 03:51
Calcium 8.0 mg/dl (8.4-10.2) L 02/24/25 03:51
Phosphorus 3.4 mg/dl (2.5-4.5) 02/21/25 05:00
Magnesium 2.5 mg/dl (1.6-2.3) H 02/21/25 05:00
Total Bilirubin 0.5 mg/dl (0.2-1.3) 02/20/25 18:57
AST 19 U/L (17-59) 02/20/25 18:57
ALT 15 U/L (0-50) 02/20/25 18:57
Alkaline Phosphatase 71 U/L (38-126) 02/20/25 18:57
Total Protein 6.3 g/dl (6.3-8.2) 02/20/25 18:57
Albumin 3.6 g/dl (3.5-5.0) 02/20/25 18:57
Physical Exam
-
No apparent distress, resting out to the chair comfortably
No tachycardia
No dyspnea on room air
ABD non-tender, non-distended
R groin site clean, dry, and intact, no evidence of hematoma, all surrounding compartments soft
Right ABNER site with scant drainage, 120 cc output
BL DP +2 palpable
--- NOTE | 2025-02-24 10:21 | W.PN.INTV ---
Today's Communication / Plan
Recommendations
Continue hemodynamic monitoring
Transfusion of 2 units of packed red blood cells
Monitor on a heparin drip
Follow H&H
Increase activity as able
Maintain ICU level of care for today.
Assessment
-
Patient is s/p right femoral artery cutdown and thrombectomy of right iliac limb of aortic stent graft as well as thrombectomy of right superficial femoral artery, popliteal artery tibial arteries right groin incision, by vascular surgery service,
POD # 4
02/21, patient developed hematoma at the incision site as well as increased output from ABNER drain, was taken back to the OR. S/p Exploration of right groin incision with evacuation and washout of hematoma: POD # 3
Continue ICU hemodynamic monitoring.
Follow neurovascular checks per protocol.
ASA, Metoprolol and statin on board. Heparin on hold in view of increased local bleeding
This morning 02/24/2025 with episode of nausea and dizziness upon walking to the bathroom.
Suspect due to significant anemia
Patient to get 2 units of packed red blood cells today
Follow H&H
Mild troponin leak: Cardiology correspondence reviewed.
Denies chest pain
EKG nonischemic
Heparin drip will continue
No plans for ischemic workup
Echocardiogram noted with normal regional wall motion abnormalities
Plan to transition from Eliquis to Pradaxa-different mechanism of action.
Pain control per protocol
RASS goal 0
Known history of COPD/asthma. Follows up with [facility] pulmonary clinic.
Not bronchospastic on exam.
CXR reviewed indicating no acute disease
Encouraged IS
Diet advancement per protocol
Aspiration precautions
GI prophylaxis: None
#. Acute blood loss Anemia with local hematoma and increased ABNER drain bleeding 02/21. Patient taken back to the OR for surgical exploration and hematoma evacuation and placement of clip at a small bleeding vessel. Minimal serosanguineous output in
ABNER drain, local hematoma resolved after repeat trip to OR.
Hb , 12.3 > 11.3 > 9.8 > 10.0 > 7 this AM. s/p PRBC x 3 units 02/21, got 4th PRBC 02/22
Hemoglobin 7.2 on 02/24/2025: To get 2 units of packed red blood cells.
-
02/24/2025: ABNER drain not significant this morning.
Right groin incision without enlarging hematoma.
Continue to monitor closely as the patient is on a heparin drip.
DVT prophylaxis: Currently fully anticoagulated with IV heparin-follow PTT closely.
Discussed with vascular surgery team: Will maintain in critical care given this morning symptoms with some dizziness, nausea, headache and lightheadedness.
If stable tomorrow then transfer to telemetry.
Other medical diagnoses:
- Paroxysmal Atrial Fibrillation
- H/o CAD, s/p PCI (08/2022). Cardiology service on case, minimal troponin leak noted
- HTN, HLD
- h/o AAA. s/p repair ()1
- Moderate MR
- COPD/Asthma. Follows up [facility], Dr. Castro. Resume out patient follow up.
- Near syncope/pale/diaphoresis/vomiting x1 in 09/2022 during rehab. ?Vaso-vagal
- H/o Smoking, age [age]
- CKD. stable Cr, 1.6 today
- Acute blood loss anemia, suspect vasovagal episode 02/21. Patient had symptoms of bradycardia, hypotension, nausea and near syncopal feeling. Suspect this was triggered by increased sanguinous discharge from the right groin drain. Patient has
enlarging hematoma in the right groin as well as significant sanguinous drainage from the drain. Patient was taken back to the OR for surgical evacuation exploration. No further symptoms since
Critical Care time [431 ] mins -- The patient is admitted for acute critical illness for the treatment of vital organ failure and/or prevention of further life-threatening conditions. Total care includes time spent in review of history, physical
exam, medications, hemodynamic/ventilator parameters, laboratory data, imaging and discussion with house staff, pharmacy, respiratory therapy, learning disabled teacher, and nursing
Data:
CT Abd 02/2025: Thrombosis with high-grade obstruction of the proximal 4 cm segment of the right bifurcated limb of the aortic stent graft. Intensity of intraluminal contrast opacification in the right lower extremity arterial system is diminished.
At the approximate level of the popliteal artery, intraluminal contrast enhancement, and therefore flow, appears relatively absent throughout the popliteal and trifurcation vessels. Presumably, this is related to markedly slow flow, as opposed to
distal thrombosis.
No significant change in size of the [place] infrarenal abdominal aortic aneurysm sac.
ECHO 10/2024: Normal left ventricular size and systolic function. Mild concentric left
ventricular hypertrophy. No regional wall motion abnormalities are seen. LV
ejection fraction is 55-60% by volumetric assessment. Normal diastolic
function.
Normal right ventricular size and function.
Thickened mitral valve leaflets with mild to moderate mitral regurgitation.
Trace tricuspid regurgitation. Estimated pulmonary artery pressure of 32 mmHg
assuming a right atrial pressure of 3 mmHg.
Mildly Dilated Sinus of Valsalva-3.9 cm, Sinotubular junction-3.2 cm and
ascending aorta-4.1 cm.
Compared to previous echo 02/01/24, the LVEF and mitral valve are stable. The
ascending aortic size measures slightly larger increasing from 3.8 cm to 4.1
cm.
LDCT 03/2024: Tiny scattered right upper lobe tree-in-bud/groundglass opacities most in keeping with a low-grade infectious/inflammatory bronchiolitis.
Mild fusiform aneurysmal dilatation of the ascending thoracic aorta measuring up to 4.1 cm
LUNG-RADS category: 2
PFT 07/22/24-FEV1 2.33-69%, FVC 4.02-86%, 21% improvement postbronchodilator, TLC under 90%, RV 115%, DLCO 70%, DLCO/VA 67%.� Mild to moderate obstruction, significant BD response, mild hyperinflation and mild reduction in diffusing capacity.
Subjective Dataa
Subjective Data
Date of Service:
Date of Service: February 24, 2025
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
Subjective:
This morning upon walking to the bathroom patient felt nauseous and dizzy.
Denied any chest pain
Upon my examination, sitting comfortably in bed. No vomiting.
Denies any right groin pain
Review of Systems
General: Fever (n)
Cardiopulmonary: Dyspnea (none at rest)
GI: Abdominal Pain (n), Nausea (n) and Vomiting (n)
Neuro: Headache (earlie in AM)
Objective Data
Data Reviewed
Vital Signs / I&O / Oxygen:
Vital Signs
Temp Pulse Resp BP Pulse Ox
98.7 F 81 14 118/93 97
02/24/25 10:03 02/24/25 10:03 02/24/25 10:03 02/24/25 10:03 02/24/25 08:03
Intake and Output
02/23/25 02/24/25 02/25/25
06:59 06:59 06:59
Intake Total 874 / 886 178 / 190 298 / 298
Output Total 2640 / 2640 1445 / 1445 175 / 175
Balance -1766 / -1754 -1267 / -1255 123 / 123
SaO2 97
Physical Exam
General: Comfortable
HEENT: Normocephalic (Pale conjunctiva)
Cardiovascular: S1-S2 and Other (Slightly increased left groin area swelling as well as increased sanguinous drainage in the ABNER drain, increased from 1004. Low-grade oozing also noted from A-line site as well as midline.)
Respiratory: Clear
GI: Soft and Non Distended
Neurology: Awake and Alert
Skin: Warm
Labs/Micro/Reports
Lab Data
02/24/25 03:51
Laboratory Results
02/23/25 02/24/25 02/24/25
20:39 03:51 05:00
APTT 71.9 H Cancelled 122.3 H
--- NOTE | 2025-02-24 10:22 | PTCARENOTE ---
Rec'd care of patient at 0700. Patient alert and oriented. MAEx4. C/o headache; tylenol administered. NSR with pac and pvcs on tele monitor. RLE neurovascular check wnl. Right groin site approximated, ketty. ABNER drain with scant sanguinous
drainage. Lung sounds cta. Pulse ox 97% on RA. +BS. Tolerating regular diet. Protonix initiated by Crab Picker. Voiding via urinal. 1 unit of PRBCs transfused; second unit transfusing through right midline. Repeat H&H at 1400. EKG and troponin level
obtained. Heparin gtt infusing through peripheral site. Next PTT due at 1200. Patient ambulatory in room x1. OOB in chair from around 0830 until 1020.
[2025-02-24 10:26] LABS: Troponin I 0.039 ng/ml
--- NOTE | 2025-02-24 10:30 | W.PN.INTV ---
Assessment
-
Patient is s/p right femoral artery cutdown and thrombectomy of right iliac limb of aortic stent graft as well as thrombectomy of right superficial femoral artery, popliteal artery tibial arteries right groin incision, by vascular surgery service,
POD # 4
02/21, patient developed hematoma at the incision site as well as increased output from ABNER drain, was taken back to the OR. S/p Exploration of right groin incision with evacuation and washout of hematoma: POD # 3
Continue ICU hemodynamic monitoring.
Follow neurovascular checks per protocol.
ASA, Metoprolol and statin on board. Heparin on hold in view of increased local bleeding
This morning 02/24/2025 with episode of nausea and dizziness upon walking to the bathroom.
Suspect due to significant anemia
Patient to get 2 units of packed red blood cells today
Follow H&H
Mild troponin leak: Cardiology correspondence reviewed.
Denies chest pain
EKG nonischemic
Heparin drip will continue
No plans for ischemic workup
Echocardiogram noted with normal regional wall motion abnormalities
Plan to transition from Eliquis to Pradaxa-different mechanism of action.
Pain control per protocol
RASS goal 0
Known history of COPD/asthma. Follows up with [facility] pulmonary clinic.
Not bronchospastic on exam.
CXR reviewed indicating no acute disease
Encouraged IS
Diet advancement per protocol
Aspiration precautions
GI prophylaxis: None
#. Acute blood loss Anemia with local hematoma and increased ABNER drain bleeding 02/21. Patient taken back to the OR for surgical exploration and hematoma evacuation and placement of clip at a small bleeding vessel. Minimal serosanguineous output in
ABNER drain, local hematoma resolved after repeat trip to OR.
Hb , 12.3 > 11.3 > 9.8 > 10.0 > 7 this AM. s/p PRBC x 3 units 02/21, got 4th PRBC 02/22
Hemoglobin 7.2 on 02/24/2025: To get 2 units of packed red blood cells.
-
02/24/2025: ABNER drain not significant this morning.
Right groin incision without enlarging hematoma.
Continue to monitor closely as the patient is on a heparin drip.
DVT prophylaxis: Currently fully anticoagulated with IV heparin-follow PTT closely.
Discussed with vascular surgery team: Will maintain in critical care given this morning symptoms with some dizziness, nausea, headache and lightheadedness.
If stable tomorrow then transfer to telemetry.
Other medical diagnoses:
- Paroxysmal Atrial Fibrillation
- H/o CAD, s/p PCI (08/2022). Cardiology service on case, minimal troponin leak noted
- HTN, HLD
- h/o AAA. s/p repair ()1
- Moderate MR
- COPD/Asthma. Follows up [facility], Dr. Castro. Resume out patient follow up.
- Near syncope/pale/diaphoresis/vomiting x1 in 09/2022 during rehab. ?Vaso-vagal
- H/o Smoking, age [age]
- CKD. stable Cr, 1.6 today
- Acute blood loss anemia, suspect vasovagal episode 02/21. Patient had symptoms of bradycardia, hypotension, nausea and near syncopal feeling. Suspect this was triggered by increased sanguinous discharge from the right groin drain. Patient has
enlarging hematoma in the right groin as well as significant sanguinous drainage from the drain. Patient was taken back to the OR for surgical evacuation exploration. No further symptoms since
Critical Care time [431 ] mins -- The patient is admitted for acute critical illness for the treatment of vital organ failure and/or prevention of further life-threatening conditions. Total care includes time spent in review of history, physical
exam, medications, hemodynamic/ventilator parameters, laboratory data, imaging and discussion with house staff, pharmacy, respiratory therapy, patient access representative, and nursing
Data:
CT Abd 02/2025: Thrombosis with high-grade obstruction of the proximal 4 cm segment of the right bifurcated limb of the aortic stent graft. Intensity of intraluminal contrast opacification in the right lower extremity arterial system is diminished.
At the approximate level of the popliteal artery, intraluminal contrast enhancement, and therefore flow, appears relatively absent throughout the popliteal and trifurcation vessels. Presumably, this is related to markedly slow flow, as opposed to
distal thrombosis.
No significant change in size of the [place] infrarenal abdominal aortic aneurysm sac.
ECHO 10/2024: Normal left ventricular size and systolic function. Mild concentric left
ventricular hypertrophy. No regional wall motion abnormalities are seen. LV
ejection fraction is 55-60% by volumetric assessment. Normal diastolic
function.
Normal right ventricular size and function.
Thickened mitral valve leaflets with mild to moderate mitral regurgitation.
Trace tricuspid regurgitation. Estimated pulmonary artery pressure of 32 mmHg
assuming a right atrial pressure of 3 mmHg.
Mildly Dilated Sinus of Valsalva-3.9 cm, Sinotubular junction-3.2 cm and
ascending aorta-4.1 cm.
Compared to previous echo 02/01/24, the LVEF and mitral valve are stable. The
ascending aortic size measures slightly larger increasing from 3.8 cm to 4.1
cm.
LDCT 03/2024: Tiny scattered right upper lobe tree-in-bud/groundglass opacities most in keeping with a low-grade infectious/inflammatory bronchiolitis.
Mild fusiform aneurysmal dilatation of the ascending thoracic aorta measuring up to 4.1 cm
LUNG-RADS category: 2
PFT 07/22/24-FEV1 2.33-69%, FVC 4.02-86%, 21% improvement postbronchodilator, TLC under 90%, RV 115%, DLCO 70%, DLCO/VA 67%.� Mild to moderate obstruction, significant BD response, mild hyperinflation and mild reduction in diffusing capacity.
Subjective Dataa
Subjective Data
Date of Service:
Date of Service: February 24, 2025
Chief Complaint: Verifier Follow Up (Status post right lower extremity thrombectomy)
Objective Data
Data Reviewed
Vital Signs / I&O / Oxygen:
Vital Signs
Temp Pulse Resp BP Pulse Ox
98.7 F 81 14 118/93 97
02/24/25 10:03 02/24/25 10:03 02/24/25 10:03 02/24/25 10:03 02/24/25 08:03
Intake and Output
02/23/25 02/24/25 02/25/25
06:59 06:59 06:59
Intake Total 874 / 886 178 / 190 298 / 298
Output Total 2640 / 2640 1445 / 1445 175 / 175
Balance -1766 / -1754 -1267 / -1255 123 / 123
SaO2 97
Physical Exam
General: Comfortable
HEENT: Normocephalic (Pale conjunctiva)
Cardiovascular: S1-S2 and Other (Slightly increased left groin area swelling as well as increased sanguinous drainage in the ABNER drain, increased from 1004. Low-grade oozing also noted from A-line site as well as midline.)
Respiratory: Clear
GI: Soft and Non Distended
Neurology: Awake and Alert
Skin: Warm
Labs/Micro/Reports
Lab Data
02/24/25 03:51
Laboratory Results
02/23/25 02/24/25 02/24/25
20:39 03:51 05:00
APTT 71.9 H Cancelled 122.3 H
--- NOTE | 2025-02-24 12:14 | PTCARENOTE ---
No major changes from previous assessment. 2nd unit transfused. Heparin gtt infusing; repeat PTT obtained. Patient resting comfortably in bed. No complaints. No s/s bleeding.
[2025-02-24 12:46] LABS: APTT 91.0 Sec (23.4-35.0)
[2025-02-24] MEDS: HEPARIN 25000 UNITS/250 ML IV (14:12)
[2025-02-24 14:52] LABS: Hematocrit 29.1 % (39.0-52.0); Hemoglobin 9.5 g/dL (13.0-18.0)
--- NOTE | 2025-02-24 15:30 | CM ---
3 vascular surgeries/interventions, ABNER drain in R groin, heparin drip, Hgb 7.2 received 2 U PRBC, following H/H. Discharge POC: Patient repeatedly declining JADE RN.
--- NOTE | 2025-02-24 15:39 | PN.CDI ---
CDI
- -
CDI:
Physician Documentation Request
Admit Date: 02/20/25 22:10
Dear Cardiology,
Please review the following and provide your response in the progress notes.
Clinical Indicators:
Pt admitted for Acute limb ischemia, right lower extremity.
Laboratory Tests
02/21/25 02/21/25 02/21/25
06:09 11:04 15:55
Troponin I 0.055 H* 0.559 H* D 0.585 H*
02/21 Cardiology Note: ' Mildly elevated troponin, non-ACS related, with transient ST segment depression'
Based on the above, could you clarify in the progress notes, the appropriate diagnosis, if significant, that supports the above abnormalities and additional evaluation, monitoring and/or treatment rendered:
Non ischemic myocardial injury
Insignificant abnormal troponin elevations
Other
Use of terms such as suspected, likely, concern for, or probable (associated with a specific diagnosis that is being evaluated, monitored, or treated as if it exists) are acceptable and can be coded in the inpatient setting, when documented at the
time of discharge.
Thank you,
Susan Montesinos RN,BSN
CDI Specialist
[place] [employer]
Please use your independent medical judgment in providing your response.
--- NOTE | 2025-02-24 15:49 | PN.CDI ---
CDI
- -
CDI:
Physician Documentation Request
Admit Date: 02/20/25 22:10
Dear Doctor Hiren,
Please review the following and provide your response in the progress notes.
Current documentation includes a diagnosis of hypotension.
Clinical Indicators:
02/21 Update Note: '0450- Patient had episode of hypotension SBP 60s then repeat 50s accompanied with feeling of 'unwell', generalized pale appearance, and less responsive. He then had heart rate slowing to 50s, immediately patient was placed in a
flat position, NSS IVF open wide, epi pushed x1 and bicarb 1x amp push IV. He then began to gag and attempt to vomit, along with feeling unwell. Denied any chest pain or abdominal pain. Right groin incision, continues with serosang drainage,
surrounding incision soft, not firm. Hgb 9.8 on morning labs, but concern for possible acute drop in hgb and bleeding PRBCs were immediately ordered. Heparin gtt was on hold previously for PTT>200. Levophed gtt ordered for hypotension in addition
to IVF NSS x1L open wide.'
Levophed gtt from 02/21 5:40-02/21 14:40
02/24 Sales Representative [employer] Note: ' - Acute blood loss anemia, suspect vasovagal episode 02/21. Patient had symptoms of bradycardia, hypotension, nausea and near syncopal feeling. Suspect this was triggered by increased sanguinous discharge from the right
groin drain. Patient has enlarging hematoma in the right groin as well as significant sanguinous drainage from the drain. Patient was taken back to the OR for surgical evacuation exploration. No further symptoms since'
Please clarify which of the following is the most likely etiology of the above symptoms and treatment rendered:
Hypovolemic shock - indicate if due to surgery, trauma or other etiology
Hemorrhagic shock - indicate if due to surgery, trauma or other etiology
Hypotension / Vasovagal Only
Other
Use of terms such as suspected, likely, concern for, or probable (associated with a specific diagnosis that is being evaluated, monitored, or treated as if it exists) are acceptable and can be coded in the inpatient setting, when documented at the
time of discharge.
Thank you,
Susan Montesinos RN, BSN
CDI Specialist
[place] [employer]
Please use your independent medical judgment in providing your response.
--- NOTE | 2025-02-24 16:30 | PTCARENOTE ---
No changes in assessment. VSS. Repeat H&H- 9.5/29.1.
[2025-02-24] MEDS: LIPITOR 40 MG PO (18:11)
[2025-02-24 18:55] LABS: APTT 75.1 Sec (23.4-35.0)
[2025-02-25] VITALS (20 sets, daily range): BP systolic 110–165; BP diastolic 68–98; BMI 27.9
[2025-02-25] MEDS: TYLENOL 650 MG PO (04:55)
[2025-02-25 05:22] LABS: Hematocrit 26.7 % (39.0-52.0); Hemoglobin 8.9 g/dL (13.0-18.0); Mean Corp Hgb Conc. 33.3 g/dL (33.0-37.0); Mean Corpuscular Volume 89.3 fL (80.0-94.0); Platelet Count 136 10^3/uL (130-400); Red Cell Dist. Width 15.1 % (11.5-14.5)
[2025-02-25 05:32] LABS: APTT 80.4 Sec (23.4-35.0)
[2025-02-25 05:58] LABS: Blood Urea Nitrogen 16 mg/dl (9-20); Calcium 8.2 mg/dl (8.4-10.2); Carbon Dioxide 27 mmol/L (22-30); Chloride 104 mmol/L (98-107); Estimated Creatinine Clearance 57 ml/min; Glucose 117 mg/dl (70-99); Potassium 4.4 mmol/L (3.5-5.1); Sodium 135 mmol/L (135-145); eGFR 58.01
--- NOTE | 2025-02-25 08:05 | W.PN.VS ---
Today's Communication / Plan
-
Patient seen and examined at bedside with Dr. Tirso Ivan III, below plan reviewed with attending.
Assessment/Plan
-
Postop day 5 thrombectomy
Postop day 4 right groin washout
Plan:
HGB stable, following yesterday transfusion
Appreciate cardiology input, gave recommendation for pradaxa and signed off, given bleeding at prior ABNER site will continue heparin infusion today
Continue ICU today for monitoring of possible skin bleeding following drain removal
DVT prophylaxis
GI prophylaxes
Encourage incentive spirometry
Bedrest for now, will hopefully liberate this afternoon following observation of ABNER drain site
Subjective Data
-
Date of Service: February 25, 2025
Patient seen and examined at bedside, offers no complaints. Denies nausea, vomiting, fever, and chills. Reports eagerness for discharged to home when cleared, but does not he had small amounts of bleeding from ABNER drain insertion site overnight.
Objective Data
-
Vital Signs
Temp Pulse Resp BP Pulse Ox
98.9 F 69 14 146/85 96
02/25/25 05:09 02/25/25 07:00 02/25/25 07:00 02/25/25 07:00 02/24/25 20:00
Intake and Output
02/24/25 02/25/25 02/26/25
06:59 06:59 06:59
Intake Total 178 / 190 1388 / 1400
Output Total 1445 / 1445 2380 / 2600 220 / 220
Balance -1267 / -1255 -992 / -1200 -208 / -208
Intake:
Oral fluids 600 / 600
IV fluids (Total) 178 / 190 288 / 300 12 / 12
Heparin 178 / 190 288 / 300 / 12
Blood Product Amount Infused ( 0 / 0 500 / 500
mL)
Packed Rbc Leukoreduced Unit 250 / 250
[id number]
Packed Rbc Leukoreduced Unit 0 / 0 250 / 250
[id number]
Output:
Drain Output (Total) 120 / 120 35 / 55 20
Right Leg Arturo-Colindres 120 / 120 35 / 55
Urine, Voided 1325 / 1325 2345 / 2545 200 / 200
Other:
Number of approximated MODERATE 1
amounts of urine
Lab Results
02/25/25 05:04
02/25/25 05:04
Calcium 8.2 mg/dl (8.4-10.2) L 02/25/25 05:04
Phosphorus 3.4 mg/dl (2.5-4.5) 02/21/25 05:00
Magnesium 2.5 mg/dl (1.6-2.3) H 02/21/25 05:00
Total Bilirubin 0.5 mg/dl (0.2-1.3) 02/20/25 18:57
AST 19 U/L (17-59) 02/20/25 18:57
ALT 15 U/L (0-50) 02/20/25 18:57
Alkaline Phosphatase 71 U/L (38-126) 02/20/25 18:57
Total Protein 6.3 g/dl (6.3-8.2) 02/20/25 18:57
Albumin 3.6 g/dl (3.5-5.0) 02/20/25 18:57
Physical Exam
-
No apparent distress, resting in bed comfortably
No tachycardia
No dyspnea on room air
ABD non-tender, non-distended
R groin site clean, dry, and intact, no evidence of hematoma, all surrounding compartments soft, staple line well approximated
Right ABNER site with scant drainage in bulb, 30ml over 24hr, insertion site with noted ooze appears to be at skin level, challenging to clot with drain present, ABNER drain pulled by this provider, held pressure for 5 minutes with cessation of skin
bleed, dressing placed and clean, dry, and intact
BL DP +2 palpable
[2025-02-25] MEDS: TOPROL XL 12.5 MG PO (08:08)
[2025-02-25] MEDS: COLACE 100 MG PO ×2 (08:08→19:49)
[2025-02-25] MEDS: LOW STRENGTH ASPIRIN 81 MG PO (08:08)
[2025-02-25] MEDS: ZETIA 10 MG PO (08:08)
[2025-02-25] MEDS: PROTONIX 40 MG PO (08:08)
--- NOTE | 2025-02-25 08:18 | PTCARENOTE ---
Rec'd care of patient at 0700. Patient alert and oriented. MAEx3. VSS. Upon assessing right groin site, dressing found to be saturated in blood. Pressure held and vascular surgery notified. Right thigh john drain removed by vascular surgeon. Dressing
c/d/i. RLE neurovascular check wnl. Patient verbalizes understanding of bedrest orders until cleared by vascular surgery. Heparin gtt infusing; therapeutic.
[2025-02-25] MEDS: HEPARIN 25000 UNITS/250 ML IV (10:04)
--- NOTE | 2025-02-25 11:57 | W.PN.INTV ---
Addendum entered and electronically signed by Paulo Maradiaga MD 02/25/25 12:35:
CDI: Hypotension likely was vasovagal. There is no hemorrhagic shock.
Original Note:
Today's Communication / Plan
Recommendations
Continue heparin drip
Follow PTT
Monitor for bleeding
H&H tomorrow
Hopefully can increase physical activity later today.
Maintain ICU monitoring for additional 24 hours
Assessment
-
Patient is s/p right femoral artery cutdown and thrombectomy of right iliac limb of aortic stent graft as well as thrombectomy of right superficial femoral artery, popliteal artery tibial arteries right groin incision, by vascular surgery service,
POD #5
02/21, patient developed hematoma at the incision site as well as increased output from ABNER drain, was taken back to the OR. S/p Exploration of right groin incision with evacuation and washout of hematoma: POD # 4
Stable hemodynamically overnight
Hemoglobin responded to 2 units of packed red blood cells
ABNER drainage has been discontinued 02/25/2025.
Monitor for recurrent bleeding
Abdominal exam is benign
Will continue with hemodynamic monitoring in the ICU for the next 24 hours.
-
Mild troponin leak: Cardiology correspondence reviewed.
Denies chest pain
EKG nonischemic
Heparin drip will continue
No plans for ischemic workup
Echocardiogram noted with normal regional wall motion abnormalities
Plan to transition from Eliquis to Pradaxa-different mechanism of action.
Cardiology has signed off.
Known history of COPD/asthma. Follows up with [facility] pulmonary clinic.
Not bronchospastic on exam.
CXR reviewed indicating no acute disease
Encouraged IS
Continue to tolerate diet.
Aspiration precautions
GI prophylaxis: None
#. Acute blood loss Anemia with local hematoma and increased ABNER drain bleeding 02/21. Patient taken back to the OR for surgical exploration and hematoma evacuation and placement of clip at a small bleeding vessel. Minimal serosanguineous output in
ABNER drain, local hematoma resolved after repeat trip to OR.
Hb , 12.3 > 11.3 > 9.8 > 10.0 > 7 this AM. s/p PRBC x 3 units 02/21, got 4th PRBC 02/22
Hemoglobin 7.2 on 02/24/2025: To get 2 units of packed red blood cells.
Hemoglobin 8.9 02/25/2025.
ABNER drainage discontinued-continue to monitor for bleeding
-
Right groin incision without enlarging hematoma.
Continue to monitor closely as the patient is on a heparin drip-hopefully can transition to Pradaxa tomorrow 02/26/2025 if stable.
DVT prophylaxis: Currently fully anticoagulated with IV heparin-follow PTT closely.
Discussed with vascular surgery team: Will maintain in critical care additional 24 hours for close observation.
Other medical diagnoses:
- Paroxysmal Atrial Fibrillation
- H/o CAD, s/p PCI (08/2022). Cardiology service on case, minimal troponin leak noted
- HTN, HLD
- h/o AAA. s/p repair ()1
- Moderate MR
- COPD/Asthma. Follows up [facility], Dr. Castro. Resume out patient follow up.
- Near syncope/pale/diaphoresis/vomiting x1 in 09/2022 during rehab. ?Vaso-vagal
- H/o Smoking, age [age]
- CKD. stable Cr, 1.6 today
- Acute blood loss anemia, suspect vasovagal episode 02/21. Patient had symptoms of bradycardia, hypotension, nausea and near syncopal feeling. Suspect this was triggered by increased sanguinous discharge from the right groin drain. Patient has
enlarging hematoma in the right groin as well as significant sanguinous drainage from the drain. Patient was taken back to the OR for surgical evacuation exploration. No further symptoms since
Data:
CT Abd 02/2025: Thrombosis with high-grade obstruction of the proximal 4 cm segment of the right bifurcated limb of the aortic stent graft. Intensity of intraluminal contrast opacification in the right lower extremity arterial system is diminished.
At the approximate level of the popliteal artery, intraluminal contrast enhancement, and therefore flow, appears relatively absent throughout the popliteal and trifurcation vessels. Presumably, this is related to markedly slow flow, as opposed to
distal thrombosis.
No significant change in size of the [place] infrarenal abdominal aortic aneurysm sac.
ECHO 10/2024: Normal left ventricular size and systolic function. Mild concentric left
ventricular hypertrophy. No regional wall motion abnormalities are seen. LV
ejection fraction is 55-60% by volumetric assessment. Normal diastolic
function.
Normal right ventricular size and function.
Thickened mitral valve leaflets with mild to moderate mitral regurgitation.
Trace tricuspid regurgitation. Estimated pulmonary artery pressure of 32 mmHg
assuming a right atrial pressure of 3 mmHg.
Mildly Dilated Sinus of Valsalva-3.9 cm, Sinotubular junction-3.2 cm and
ascending aorta-4.1 cm.
Compared to previous echo 02/01/24, the LVEF and mitral valve are stable. The
ascending aortic size measures slightly larger increasing from 3.8 cm to 4.1
[address]
LDCT 03/2024: Tiny scattered right upper lobe tree-in-bud/groundglass opacities most in keeping with a low-grade infectious/inflammatory bronchiolitis.
Mild fusiform aneurysmal dilatation of the ascending thoracic aorta measuring up to 4.1 cm
LUNG-RADS category: 2
PFT 07/22/24-FEV1 2.33-69%, FVC 4.02-86%, 21% improvement postbronchodilator, TLC under 90%, RV 115%, DLCO 70%, DLCO/VA 67%.� Mild to moderate obstruction, significant BD response, mild hyperinflation and mild reduction in diffusing capacity.
Subjective Dataa
Subjective Data
Date of Service:
Date of Service: February 25, 2025
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
Subjective:
Patient offers no significant complaints this morning
Tolerated breakfast
Denies abdominal pain nausea or vomiting
Review of Systems
Cardiopulmonary: Dyspnea (n)
GI: Abdominal Pain (n), Nausea and Vomiting (n)
Objective Data
Data Reviewed
Vital Signs / I&O / Oxygen:
Vital Signs
Temp Pulse Resp BP Pulse Ox
99.0 F 71 19 162/98 94
02/25/25 08:11 02/25/25 11:00 02/25/25 11:00 02/25/25 11:00 02/25/25 08:12
Intake and Output
02/24/25 02/25/25 02/26/25
06:59 06:59 06:59
Intake Total 178 / 190 1388 / 1400 300 / 300
Output Total 1445 / 1445 2380 / 2600 570 / 570
Balance -1267 / -1255 -992 / -1200 -270 / -270
SaO2 94
Physical Exam
General: Comfortable
HEENT: Normocephalic (Pale conjunctiva)
Cardiovascular: S1-S2 and Other (Slightly increased left groin area swelling as well as increased sanguinous drainage in the ABNER drain, increased from 1004. Low-grade oozing also noted from A-line site as well as midline.)
Respiratory: Clear
GI: Soft and Non Distended
Neurology: Awake and Alert
Skin: Warm
Labs/Micro/Reports
Lab Data
02/25/25 05:04
02/25/25 05:04
Laboratory Results
02/24/25 02/24/25 02/25/25
12:13 18:19 05:04
APTT 91.0 H 75.1 H 80.4 H
--- NOTE | 2025-02-25 12:27 | PTCARENOTE ---
No major changes from previous assessment. Patient cleared by Vascular to get oob. Patient resting comfortably in chair. VSS. Right thigh site soft, dressing c/d/i. Heparin gtt maintained.
--- NOTE | 2025-02-25 14:21 | PTCARENOTE ---
Patient concerned he has not had a bm in 2 days. District Plant Superintendent notified. Order for Miralax obtained.
[2025-02-25] MEDS: MIRALAX 17 GRAMS PO (14:42)
--- NOTE | 2025-02-25 15:01 | W.PN.UPDATE ---
Update Note
Progress Note Update
I talked with patient and in the room today to go over some questions regarding Pradaxa OAC. Patient was seen on admission when he presented with hypotension and bradycardia with presyncope following vascular procedure. During vascular
procedure there was thrombus in the RLE. Patient reports he is generally compliant with Eliquis and it was suggested that he change from Eliquis to Pradaxa as a direct thrombin inhibitor. Patient has been on heparin gtt following procedure.
Patient's called the office concerned that Pradaxa would be contraindicated due to the patient's history of back surgery with rods in place. We reviewed Pradaxa package insert and the warnings regarding Pradaxa and epidural injections and
spinal anesthesia. History of back surgery with hardware in place. Is not a contraindication to Pradaxa therapy. We made a plan to continue with Pradaxa 150 mg BID once safe from a vascular surgery standpoint. We talked about possible GI upset
or dyspepsia related to Pradaxa and if this was extreme then patient could be switched to warfarin. Patient's was on warfarin for close to 20 years and is very familiar with that medication and would be comfortable with that transition if
necessary. ECW chart in the office was updated as well and we will work on follow-up with Dr. Urias.
--- NOTE | 2025-02-25 16:51 | CM ---
Hep drip, following H/H and PTT s/p transfusions 02/24. Discharge POC: TBD. Awaiting therapy evaluations.
[2025-02-25] MEDS: NON-FORMULARY ITEM 0.5 MG PO (17:05)
[2025-02-25] MEDS: LIPITOR 40 MG PO (17:05)
--- NOTE | 2025-02-25 17:13 | PTCARENOTE ---
Patient's brought in patient's Edarbi from home. Vascular surgery notified. Order placed. Patient ambulatory to bathroom to try for bm; unsuccessful. VSS. No other changes.
--- NOTE | 2025-02-25 21:35 | PTCARENOTE ---
Received pt from previous RN. Pt is AAOx3. NSR w/ PVCs on the monitor. Pt on RA O2 sat 96%, lungs clear. Pt c/o constipation, pt assisted to the BR x1, unable to move his bowels. Right groin ketty intact and right thigh dressing c/d/i. Heparin gtt
at 1200 units. CHG bath and mouth care provided. Call vargas in reach. Safe environment maintained.
[2025-02-26] VITALS (19 sets, daily range): BP systolic 90–151; BP diastolic 48–94; PULSE 75; O2SAT 98; BMI 28.0; BMI 23.3
--- NOTE | 2025-02-26 05:03 | PTCARENOTE ---
Systems reviewed, no new changes in assessment. AM labs provided. Call vargas in reach. Safe environment maintained.
[2025-02-26 05:20] LABS: Blood Urea Nitrogen 15 mg/dl (9-20); Calcium 8.2 mg/dl (8.4-10.2); Carbon Dioxide 29 mmol/L (22-30); Chloride 105 mmol/L (98-107); Estimated Creatinine Clearance 57 ml/min; Glucose 104 mg/dl (70-99); Magnesium 2.2 mg/dl (1.6-2.3); Potassium 4.4 mmol/L (3.5-5.1); Sodium 135 mmol/L (135-145); eGFR 58.01
[2025-02-26 05:41] LABS: APTT 78.8 Sec (23.4-35.0)
[2025-02-26] MEDS: HEPARIN 25000 UNITS/250 ML IV (06:29)
[2025-02-26 07:18] LABS: Hematocrit 24.7 % (39.0-52.0); Hemoglobin 8.1 g/dL (13.0-18.0); Mean Corp Hgb Conc. 32.8 g/dL (33.0-37.0); Mean Corpuscular Volume 88.8 fL (80.0-94.0); Platelet Count 136 10^3/uL (130-400); Red Cell Dist. Width 15.1 % (11.5-14.5)
[2025-02-26] MEDS: COLACE 100 MG PO ×2 (07:35→20:28)
[2025-02-26] MEDS: TOPROL XL 12.5 MG PO (07:35)
[2025-02-26] MEDS: ZETIA 10 MG PO (07:35)
[2025-02-26] MEDS: TYLENOL 650 MG PO (07:35)
[2025-02-26] MEDS: LOW STRENGTH ASPIRIN 81 MG PO (07:35)
[2025-02-26] MEDS: PROTONIX 40 MG PO (07:35)
[2025-02-26] MEDS: MIRALAX 17 GRAMS PO (07:35)
--- NOTE | 2025-02-26 07:59 | PTCARENOTE ---
Pt rec'd in report from night RN, pt awake and complaining of 6/10 frontal headache pain. PRN Tylenol provided at patient's request. Hep gtt running as ordered, PTT remains therapeutic. Pt's right groin with ecchymosis as prior, stapled incision
approximated, no oozing, and dressing on site of old ABNER drain which was removed yesterday remains CDI. Vascular shuttle fixer at bedside to round on pt. Neurovascular check WNL at this time, feet warm and pink, palpable pedal pulses. Meds and assessment as
documented, see flowsheet. Pt declines to get oob at this time, wants to try to sleep longer. Call vargas in reach, safe environment continues.
--- NOTE | 2025-02-26 08:35 | W.PN.VS ---
Addendum entered and electronically signed by Ranjit Fong MD 02/26/25 10:42:
Seen with HARJIT Krueger. Agree with findings and plan as discussed and noted below.
Original Note:
Today's Communication / Plan
-
Patient seen and examined at bedside with Dr. Ranjit Fong below plan reviewed with attending.
Assessment/Plan
-
Postop day 6 thrombectomy
Postop day 5 right groin washout
Plan:
HGB remains stable
Appreciate cardiology input, gave recommendation for pradaxa will transition to oral anticoagulation today
Will downgrade to telemetry
GI prophylaxes
Encourage incentive spirometry
PT eval and treat
Case management for disposition planning
Subjective Data
-
Date of Service: February 26, 2025
Patient seen and examined at bedside, reports well managed post operative pain but does indicate mild headache. Denies nausea, vomiting, fever, and chills. Reports tolerating ambulation yesterday to chair with no reoccurrence of bleeding or issues.
Objective Data
-
Vital Signs
Temp Pulse Resp BP Pulse Ox
97.8 F 68 14 125/90 96
02/26/25 07:45 02/26/25 08:00 02/26/25 08:00 02/26/25 08:00 02/25/25 19:55
Intake and Output
02/25/25 02/26/25 02/27/25
06:59 06:59 06:59
Intake Total 1388 / 1400 868 / 880 24
Output Total 2380 / 2600 1470 / 1720 250 / 250
Balance -992 / -1200 -602 / -840 -226 / -226
Intake:
Oral fluids 600 / 600 580 / 580
IV fluids (Total) 288 / 300 288 / 300 24 / 24
Heparin 288 / 300 288 / 300 24 / 24
Blood Product Amount Infused ( 500 / 500
mL)
Packed Rbc Leukoreduced Unit 250 / 250
[id number]
Packed Rbc Leukoreduced Unit 250 / 250
[id number]
Output:
Drain Output (Total)
Right Leg Arturo-Colindres
Urine, Voided 2345 / 2545 1450 / 1700 250 / 250
Other:
Number of approximated SMALL 1
amounts of urine
Lab Results
02/26/25 04:35
02/26/25 04:35
Calcium 8.2 mg/dl (8.4-10.2) L 02/26/25 04:35
Phosphorus 3.4 mg/dl (2.5-4.5) 02/21/25 05:00
Magnesium 2.2 mg/dl (1.6-2.3) 02/26/25 04:35
Total Bilirubin 0.5 mg/dl (0.2-1.3) 02/20/25 18:57
AST 19 U/L (17-59) 02/20/25 18:57
ALT 15 U/L (0-50) 02/20/25 18:57
Alkaline Phosphatase 71 U/L (38-126) 02/20/25 18:57
Total Protein 6.3 g/dl (6.3-8.2) 02/20/25 18:57
Albumin 3.6 g/dl (3.5-5.0) 02/20/25 18:57
Physical Exam
-
No apparent distress, resting in bed comfortably
No tachycardia
No dyspnea on room air
ABD non-tender, non-distended
R groin site clean, dry, and intact, no evidence of hematoma, all surrounding compartments soft, staple line well approximated
BL DP +2 palpable
--- NOTE | 2025-02-26 08:37 | PTCARENOTE ---
Headache pain improved down to 2/10 s/p Tylenol administration one hour ago.
--- NOTE | 2025-02-26 10:35 | W.PN.INTV ---
Today's Communication / Plan
Recommendations
Continue postoperative care
Monitor for bleeding
Increase activity as able
Heparin drip-transition to Pradaxa
Transfer to [facility]
Sign off
Assessment
-
Patient is s/p right femoral artery cutdown and thrombectomy of right iliac limb of aortic stent graft as well as thrombectomy of right superficial femoral artery, popliteal artery tibial arteries right groin incision, by vascular surgery service,
POD #6
02/21, patient developed hematoma at the incision site as well as increased output from ABNER drain, was taken back to the OR. S/p Exploration of right groin incision with evacuation and washout of hematoma: POD # 5
Remains hemodynamically stable.
Hemoglobin is stable overnight.
ABNER drainage has been discontinued 02/25/2025---> no evidence for recurrent bleeding per
Monitor for recurrent bleeding
Abdominal exam is benign
-
Mild troponin leak: Cardiology correspondence reviewed.
No evidence for acute ischemia.
On heparin drip-to be transition to Pradaxa.
No plans for ischemic workup
Echocardiogram noted with normal regional wall motion abnormalities
Plan to transition from Eliquis to Pradaxa-different mechanism of action.
Cardiology has signed off.
Known history of COPD/asthma. Follows up with [facility] pulmonary clinic.
Not bronchospastic on exam.
CXR reviewed indicating no acute disease
Encouraged IS
Continue to tolerate diet.
Aspiration precautions
GI prophylaxis: None
#. Acute blood loss Anemia with local hematoma and increased ABNER drain bleeding 02/21. Patient taken back to the OR for surgical exploration and hematoma evacuation and placement of clip at a small bleeding vessel. Minimal serosanguineous output in
ABNER drain, local hematoma resolved after repeat trip to OR.
Hb , 12.3 > 11.3 > 9.8 > 10.0 > 7 this AM. s/p PRBC x 3 units 02/21, got 4th PRBC 02/22
Hemoglobin 7.2 on 02/24/2025: To get 2 units of packed red blood cells.
Hemoglobin 8.9 02/25/2025.
Stable hemoglobin 8.1 02/26/2025
-
Right groin incision without enlarging hematoma.
Continue to monitor closely as the patient is on a heparin drip-hopefully can transition to Pradaxa 02/26/2025.
DVT prophylaxis: Currently fully anticoagulated with IV heparin-follow PTT closely.
Transferred to [facility].
Critical care team will sign off.
Please call with questions
Other medical diagnoses:
- Paroxysmal Atrial Fibrillation
- H/o CAD, s/p PCI (08/2022). Cardiology service on case, minimal troponin leak noted
- HTN, HLD
- h/o AAA. s/p repair ()1
- Moderate MR
- COPD/Asthma. Follows up [facility], Dr. Castro. Resume out patient follow up.
- Near syncope/pale/diaphoresis/vomiting x1 in 09/2022 during rehab. ?Vaso-vagal
- H/o Smoking, age [age]
- CKD. stable Cr, 1.6 today
- Acute blood loss anemia, suspect vasovagal episode 02/21. Patient had symptoms of bradycardia, hypotension, nausea and near syncopal feeling. Suspect this was triggered by increased sanguinous discharge from the right groin drain. Patient has
enlarging hematoma in the right groin as well as significant sanguinous drainage from the drain. Patient was taken back to the OR for surgical evacuation exploration. No further symptoms since
Data:
CT Abd 02/2025: Thrombosis with high-grade obstruction of the proximal 4 cm segment of the right bifurcated limb of the aortic stent graft. Intensity of intraluminal contrast opacification in the right lower extremity arterial system is diminished.
At the approximate level of the popliteal artery, intraluminal contrast enhancement, and therefore flow, appears relatively absent throughout the popliteal and trifurcation vessels. Presumably, this is related to markedly slow flow, as opposed to
distal thrombosis.
No significant change in size of the [place] infrarenal abdominal aortic aneurysm sac.
ECHO 10/2024: Normal left ventricular size and systolic function. Mild concentric left
ventricular hypertrophy. No regional wall motion abnormalities are seen. LV
ejection fraction is 55-60% by volumetric assessment. Normal diastolic
function.
Normal right ventricular size and function.
Thickened mitral valve leaflets with mild to moderate mitral regurgitation.
Trace tricuspid regurgitation. Estimated pulmonary artery pressure of 32 mmHg
assuming a right atrial pressure of 3 mmHg.
Mildly Dilated Sinus of Valsalva-3.9 cm, Sinotubular junction-3.2 cm and
ascending aorta-4.1 cm.
Compared to previous echo 02/01/24, the LVEF and mitral valve are stable. The
ascending aortic size measures slightly larger increasing from 3.8 cm to 4.1
cm[address]
LDCT 03/2024: Tiny scattered right upper lobe tree-in-bud/groundglass opacities most in keeping with a low-grade infectious/inflammatory bronchiolitis.
Mild fusiform aneurysmal dilatation of the ascending thoracic aorta measuring up to 4.1 cm
LUNG-RADS category: 2
PFT 07/22/24-FEV1 2.33-69%, FVC 4.02-86%, 21% improvement postbronchodilator, TLC under 90%, RV 115%, DLCO 70%, DLCO/VA 67%.� Mild to moderate obstruction, significant BD response, mild hyperinflation and mild reduction in diffusing capacity.
Subjective Dataa
Subjective Data
Date of Service:
Date of Service: February 26, 2025
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
Subjective:
Patient offers no new complaints
Denies abdominal pain nausea or vomiting
Tolerating diet
timing adjuster had a headache but rapidly resolved. He received some Tylenol.
Denies blurry vision.
Review of Systems
Cardiopulmonary: Dyspnea (none at rest)
GI: Abdominal Pain (n) and Nausea (n)
Objective Data
Data Reviewed
Vital Signs / I&O / Oxygen:
Vital Signs
Temp Pulse Resp BP Pulse Ox
97.8 F 77 14 143/94 94
02/26/25 07:45 02/26/25 09:43 02/26/25 09:43 02/26/25 09:43 02/26/25 09:02
Intake and Output
02/25/25 02/26/25 02/27/25
06:59 06:59 06:59
Intake Total 1388 / 1400 868 / 880 276 / 276
Output Total 2380 / 2600 1470 / 1720 250 / 250
Balance -992 / -1200 -602 / -840
SaO2 94
Physical Exam
General: Comfortable
HEENT: Normocephalic (Pale conjunctiva)
Cardiovascular: S1-S2 and Other (Slightly increased left groin area swelling as well as increased sanguinous drainage in the ABNER drain, increased from 1004. Low-grade oozing also noted from A-line site as well as midline.)
Respiratory: Clear
GI: Soft and Non Distended
Neurology: Awake and Alert
Skin: Warm
Labs/Micro/Reports
Lab Data
02/26/25 04:35
02/26/25 04:35
Laboratory Results
02/26/25
04:35
APTT 78.8 H
[2025-02-26] MEDS: PRADAXA 150 MG PO ×2 (10:38→20:30)
--- NOTE | 2025-02-26 10:40 | PTCARENOTE ---
tele orders rec'd, pradaxa ordered and given, hep gtt dc'd. Pt ambulated in [place] with PT. now in bathroom attempting BM.
--- NOTE | 2025-02-26 12:38 | PTCARENOTE ---
Pt had large formed brown bowel movement, pt stated it was hard. Report feeling much improved.
--- NOTE | 2025-02-26 14:32 | CM ---
POD # 6 thrombectomy, POD # 5 right groin washout. ABNER drain discontinued, Heparin transitioned to PO Pradaxa, for transfer out of ICU. Discharge POC: Therapy rec for HH vs outpatient therapy. Will await additional evals and rec for final
determination.
--- NOTE | 2025-02-26 16:32 | PTCARENOTE ---
pt assigned ready bed 2130, nurse unvailable to take report at this time.
[2025-02-26] MEDS: NON-FORMULARY ITEM 20 MG PO (16:39)
[2025-02-26] MEDS: LIPITOR 40 MG PO (16:39)
--- NOTE | 2025-02-26 17:29 | PTCARENOTE ---
Report given to FELI Rothman [address] [place], pt will be transported in wheelchair.
--- NOTE | 2025-02-26 18:05 | PTCARENOTE ---
pt transported to [address] [place] [address] [id number] with all belongings - accompanying.
--- NOTE | 2025-02-26 18:30 | PTCARENOTE ---
Patient arrived from ICU. Vs documented. No s/s of distress noted. R groin dressing C/D/I. Denies pain at this time. call vargas within reach. plan of care ongoing.
[2025-02-27 03:31] VITALS: BP 125/65
[2025-02-27 04:58] LABS: APTT 40.1 Sec (23.4-35.0)
[2025-02-27 07:20] VITALS: BP 121/77
--- NOTE | 2025-02-27 08:11 | W.PN.VS ---
Today's Communication / Plan
-
Discussed with Dr. Fong
Assessment/Plan
-
Postop day 7 thrombectomy
Postop day 6 right groin washout
Plan:
Continue Pradaxa
Okay for discharge this morning
Subjective Data
-
Date of Service: February 27, 2025
Patient seen at bedside this a.m. ambulating in the room. Doing well overall. No complaints. No events overnight.
Objective Data
-
Vital Signs
Temp Pulse Resp BP Pulse Ox
98.6 F 84 20 125/65 97
02/27/25 03:31 02/27/25 03:31 02/27/25 03:31 02/27/25 03:31 02/27/25 03:31
Intake and Output
02/26/25 02/27/25 02/28/25
06:59 06:59 06:59
Intake Total 868 / 880 876 / 876
Output Total 1470 / 1720 775 / 775
Balance -602 / -840 101 / 101
Intake:
Oral fluids 580 / 580 840 / 840
IV fluids (Total) 288 / 300 36 / 36
Heparin 288 / 300 36 / 36
Output:
Drain Output (Total) 20 /
Right Leg Arturo-Colindres 20 /
Urine, Voided 1450 / 1700 775 / 775
Other:
Number of approximated SMALL 1
amounts of urine
Number of unmeasured liquid
stools
Rectum 1
Lab Results
02/26/25 04:35
02/26/25 04:35
Calcium 8.2 mg/dl (8.4-10.2) L 02/26/25 04:35
Phosphorus 3.4 mg/dl (2.5-4.5) 02/21/25 05:00
Magnesium 2.2 mg/dl (1.6-2.3) 02/26/25 04:35
Total Bilirubin 0.5 mg/dl (0.2-1.3) 02/20/25 18:57
AST 19 U/L (17-59) 02/20/25 18:57
ALT 15 U/L (0-50) 02/20/25 18:57
Alkaline Phosphatase 71 U/L (38-126) 02/20/25 18:57
Total Protein 6.3 g/dl (6.3-8.2) 02/20/25 18:57
Albumin 3.6 g/dl (3.5-5.0) 02/20/25 18:57
Physical Exam
-
No apparent distress, resting in bed comfortably
No tachycardia
No dyspnea on room air
ABD non-tender, non-distended
R groin site clean, dry, and intact, no evidence of hematoma, all surrounding compartments soft, staple line well approximated
Dressing removed and left open to air
BL DP +2 palpable
--- NOTE | 2025-02-27 08:20 | W.DS.TRANS ---
DC Summary - Cleater
-
Discharge Instructions:
Sleep Apnea Risk High
Discharge Diagnosis/Procedures Right femoral artery cutdown and exposure for
thrombectomy
Thrombectomy of right iliac limb of aortic stent
graft
Thrombectomy of right superficial femoral artery
, popliteal artery and tibial arteries via groin
incision
Diet As tolerated
Activity No strenuous activity
Driving Restrictions No driving for 1 week
Bathing Restrictions OK to Shower
Instructions:
Stand-Alone Forms: Vascular Surg Discharge Instr
Changes to Home Medications: Yes
Discharge Medications:
DC Medications w/original date entered in [facility]
omeprazole 20 mg capsule,delayed release 20 mg PO DAILY Gastrointestinal Issue 01/18/11
loratadine 10 mg tablet 10 mg PO DAILY Allergies 03/18/19
atorvastatin 40 mg tablet 40 mg PO QPM High Cholesterol 10/25/23
cholecalciferol (vitamin D3) 50 mcg (2,000 unit) tablet (Vitamin D3) 50 mcg PO QPM Supplement 10/25/23
coenzyme Q10 100 mg capsule (CoQ-10) 300 mg PO DAILY Supplement 10/25/23
ezetimibe 10 mg tablet 10 mg PO DAILY High Cholesterol 10/25/23
Prevagen 1 cap PO DAILY Supplement 11/12/24
albuterol sulfate 90 mcg/actuation aerosol inhaler (Ventolin HFA) 2 puff inhalation R Q4HPRN PRN sob 11/12/24
aspirin 81 mg tablet,delayed release 81 mg PO DAILY Blood Clot Prevention/Tx 11/12/24
multivitamin 1 tab PO QPM Supplement 11/12/24
azilsartan medoxomil 40 mg tablet (Edarbi) 20 mg PO QPM Blood Pressure 02/22/25
metoprolol succinate 25 mg tablet,extended release 24 hr 12.5 mg PO DAILY Heart Disease/Condition 02/22/25
docusate sodium 100 mg capsule 100 mg PO BID #30 caps 02/25/25
dabigatran etexilate 150 mg capsule (Pradaxa) 150 mg PO BID #90 caps 02/27/25
Home Medication Changes
DC amiodarone and Eliquis
Start Pradaxa
Pending Results: No
[2025-02-27] MEDS: PRADAXA 150 MG PO (08:24)
[2025-02-27] MEDS: ZETIA 10 MG PO (08:24)
[2025-02-27] MEDS: TOPROL XL 12.5 MG PO (08:24)
[2025-02-27] MEDS: LOW STRENGTH ASPIRIN 81 MG PO (08:25)
[2025-02-27] MEDS: COLACE 100 MG PO (08:25)
[2025-02-27] MEDS: PROTONIX 40 MG PO (08:25)
[2025-02-27] MEDS: MIRALAX PO (08:25)
--- NOTE | 2025-02-27 09:00 | CM ---
CM following re: discharge planning.
Reviewed pt's chart, met with pt.
Pt is Postop day 7 thrombectomy. Postop day 6 right groin washout. Pt reports he is doing well and cannot wait to get home.
Discharge order noted. Pt is aware, expressed his agreement with discharge and pt stated his spouse will transport home.
IMM reviewed, placed on chart, pt has a copy.
PT and OT evaluations noted - home PT/OT vs outpatient T/OT recommended. Pt preferred outpatient PT/OT and pt stated he will come to outpatient therapy department.
Please provide a script for outpatient PT/OT. RN and MD are aware.
D/C plan: home with outpatient PT/OT and family support. Spouse to transport.
[2025-02-27 11:00] VITALS: BP 125/71
--- NOTE | 2025-02-27 11:39 | VATNOTE ---
Pt being D/C'd today. Midline D/C'd, TCL retrieved was 17 cm. Pressure dressing applied.
--- NOTE | 2025-02-27 12:52 | PTCARENOTE ---
Patient discharged home, transported by spouse. This RN removed patient's peripheral IVs, R midline removed by IV team, tele pack removed by tech and vitals taken by tech stable. This RN reviewed discharge instructions with patient and patient's
spouse at bedside, both verbalized understanding. Paper script for outpatient PT/OT handed to patient, print outs of patient's labs given to patient and spouse. Patient dressed and gathered belongings in room independently, transported down to
patient's car at [facility] via staff escort and wheelchair.
== END 2025-02-27 13:03 | disposition home or self-care (01) | DRG 270 ==
LOC: 2 NORTH 22:10
PROVIDERS: Nurse Practitioner; Nurse Practitioner Acute Care; Nurse Practitioner Family; Nurse Practitioner Primary Care; ADMITTING PHYSICIAN Surgery Vascular Surgery; CONSULT PHYSICIAN Internal Medicine; EMERGENCY PHYSICIAN Emergency Medicine; FAMILY PHYSICIAN Internal Medicine; OTHER PHYSICIAN Internal Medicine Cardiovascular Disease
PROC: 04CM0ZZ Extirpation of Matter from Right Popliteal Artery, Open Approach (ICD-10-PCS; 2025-02-20)
PROC: 04CK0ZZ Extirpation of Matter from Right Femoral Artery, Open Approach (ICD-10-PCS; 2025-02-20)
PROC: 04CH0ZZ Extirpation of Matter from Right External Iliac Artery, Open Approach (ICD-10-PCS; 2025-02-20)
PROC: 04CR0ZZ Extirpation of Matter from Right Posterior Tibial Artery, Open Approach (ICD-10-PCS; 2025-02-20)
PROC: 0Y9500Z Drainage of Right Inguinal Region with Drainage Device, Open Approach (ICD-10-PCS; 2025-02-21)
PROC: 30233K1 Transfusion of Nonautologous Frozen Plasma into Peripheral Vein, Percutaneous Approach (ICD-10-PCS; 2025-02-21)
PROC: 30233N1 Transfusion of Nonautologous Red Blood Cells into Peripheral Vein, Percutaneous Approach (ICD-10-PCS; 2025-02-21)
DX: T82.868A Thrombosis due to vascular prosthetic devices, implants and grafts, initial encounter (principal); I50.31 Acute diastolic (congestive) heart failure; D62 Acute posthemorrhagic anemia; I13.0 Hypertensive heart and chronic kidney disease with heart failure and stage 1 through stage 4 chronic kidney disease, or unspecified chronic kidney disease; I74.5 Embolism and thrombosis of iliac artery; I48.92 Unspecified atrial flutter; I97.618 Postprocedural hemorrhage of a circulatory system organ or structure following other circulatory system procedure; I48.20 Chronic atrial fibrillation, unspecified; I5A Non-ischemic myocardial injury (non-traumatic); I74.3 Embolism and thrombosis of arteries of the lower extremities; N18.32 Chronic kidney disease, stage 3b; E78.00 Pure hypercholesterolemia, unspecified; I25.10 Atherosclerotic heart disease of native coronary artery without angina pectoris; I99.8 Other disorder of circulatory system; K21.9 Gastro-esophageal reflux disease without esophagitis; J30.81 Allergic rhinitis due to animal (cat) (dog) hair and dander; I95.9 Hypotension, unspecified; I49.3 Ventricular premature depolarization; J44.89 Other specified chronic obstructive pulmonary disease; Y83.8 Other surgical procedures as the cause of abnormal reaction of the patient, or of later complication, without mention of misadventure at the time of the procedure; Y71.3 Surgical instruments, materials and cardiovascular devices (including sutures) associated with adverse incidents; J30.1 Allergic rhinitis due to pollen; Y83.1 Surgical operation with implant of artificial internal device as the cause of abnormal reaction of the patient, or of later complication, without mention of misadventure at the time of the procedure; Y92.9 Unspecified place or not applicable; Z96.651 Presence of right artificial knee joint; Z91.048 Other nonmedicinal substance allergy status; Z79.82 Long term (current) use of aspirin; Z79.899 Other long term (current) drug therapy; Z79.01 Long term (current) use of anticoagulants; Z95.5 Presence of coronary angioplasty implant and graft; I25.2 Old myocardial infarction; Z87.891 Personal history of nicotine dependence; Z80.42 Family history of malignant neoplasm of prostate; Z82.49 Family history of ischemic heart disease and other diseases of the circulatory system; Z90.79 Acquired absence of other genital organ(s); Z86.79 Personal history of other diseases of the circulatory system; Z85.46 Personal history of malignant neoplasm of prostate
CPT/HCPCS: 10140; 35876; 36600; 71045; 75635; 80048; 80053; 82550; 82805; 82962; 83605; 83735; 84100; 84484; 85014; 85018; 85025; 85027; 85384; 85610; 85730; 86850; 86900; 86901; 86920; 88304; 93005; 93308; 93321; 93325; 96361; 96374; 96376; 97162; 99291; C1757; P9016; P9059; Q9967

== ENCOUNTER 2025-03-02 04:19 | Emergency (ER) | payer MEDICARE, SELFPAY ==
[2025-03-02] VITALS (7 sets, daily range): BP systolic 112–139; BP diastolic 59–87; BMI 28.5
[2025-03-02 05:22] LABS: Hematocrit 26.4 % (39.0-52.0); Hemoglobin 8.8 g/dL (13.0-18.0); Mean Corp Hgb Conc. 33.3 g/dL (33.0-37.0); Mean Corpuscular Volume 91.0 fL (80.0-94.0); Nucleated Red Blood Cells % 0 % (-); Platelet Count 214 10^3/uL (130-400); Red Cell Dist. Width 14.6 % (11.5-14.5)
[2025-03-02 05:31] LABS: INR 1.26; PT 16.1 Sec (11.4-14.6)
[2025-03-02 05:45] LABS: ALT (SGPT) 19 U/L (0-50); AST (SGOT) 18 U/L (17-59); Albumin 3.3 g/dl (3.5-5.0); Alkaline Phosphatase 67 U/L (38-126); Blood Urea Nitrogen 15 mg/dl (9-20); Calcium 8.4 mg/dl (8.4-10.2); Carbon Dioxide 24 mmol/L (22-30); Chloride 107 mmol/L (98-107); Estimated Creatinine Clearance 46 ml/min; Glucose 109 mg/dl (70-99); Potassium 4.5 mmol/L (3.5-5.1); Sodium 147 mmol/L (135-145); Total Protein 6.0 g/dl (6.3-8.2); eGFR 45.21
[2025-03-02 06:06] LABS: Urine Character Clear (Clear)
--- NOTE | 2025-03-02 06:44 | ED.GENMED ---
History of Present Illness
General
Chief Complaint: Flank Pain
Source: patient
Exam Limitations: none
Time Seen by Provider: 03/02/25 06:44
History of Present Illness
History of Present Illness:
See MDM
Past History
Past History
ED Past Medical History: CAD, GERD, HTN, Hypercholesterolemia and Other (AAA)
ED Past Surgical History: Cardiac, Orthopedic and Urological
Social History
Tobacco: Non-smoker
Personal:
Phy Exam
Physical Exam
Physical Exam:
See MDM
Course
Orders/Labs/Results
Orders:
Orders
03/02/25 05:07
Cardiac Monitoring- Treatment ONCE
IV Insert/Care/Rem.- Treatment PRN
O2 Therapy [RESP] Urgent
Titrate/Wean O2 to maintain O2 sat greater than (%): 93
Special Instructions: TO MAINTAIN CONTINUOUS O2 SATS > OR = 93%
Pulse Ox/cont/shift [RESP] Urgent
Quantity: 1
Special Instructions: CONTINUOUS
03/02/25 05:10
Type And Crossmatch [Type+Screen] Urgent
Complete Blood Count/With Diff Urgent
Comprehensive Metabolic Panel Urgent
Lactic Acid Q4H
Comment: ON ICE, CANCEL 2ND ORDER IF FIRST LACTIC ACID LEVEL <2
Prothrombin Time Urgent
Blood Culture Q20M
CARY Source: Blood/Venous
Specimen Description:
Comment: Urgent from separate sites. If patient screens positive for possible sepsis
Blood Culture Q20M
CARY Source: Blood/Venous
Specimen Description:
Comment: Urgent from separate sites. If patient screens positive for possible sepsis
03/02/25 05:21
CT Abd/pelvis Wo Iv Cont Urgent
Comment:
Reason For Exam: flank pain
03/02/25 05:47
Urinalysis Reflex To Culture Urgent
Date Specimen was Collected: 03/02/25
Time Specimen was Collected: 05:44
03/02/25 06:44
Morphine Sulfate 4 mg IV NOW STA
03/02/25 07:43
CT Abd Aorta Angio W/ Run Off Urgent
Comment: hx aortic aneurysm with recent R leg thromebtomy
Reason For Exam: R flank and R leg swelling
03/02/25 07:44
0.9% Sodium Chloride 1000 ml [Nss] 1,000 ml IV BOLUS
03/02/25 10:36
EKG [Electrocardiogram (*1)] Urgent
Reason for Study: Atrial Fibrillation
03/02/25 10:37
EKG- Treatment ONCE
Abnormal Lab Results
03/02/25
05:10
RBC 2.90 L 10^6/uL
(4.70-6.10)
Hgb 8.8 L g/dL
(13.0-18.0)
Hct 26.4 L %
(39.0-52.0)
RDW 14.6 H %
(11.5-14.5)
Abs Immat Gran (auto) 0.1 H 10^3/uL
(0-0.05)
Absolute Lymphs (auto) 1.1 L 10^3/uL
(1.2-3.4)
Absolute Monos (auto) 0.9 H 10^3/uL
(0.1-0.6)
Immature Gran % 0.9 H %
(0-0.5)
Lymphocytes % 13.2 L %
(20.5-51.1)
Monocytes % 10.4 H %
(1.7-9.3)
PT 16.1 H Sec
(11.4-14.6)
Sodium 147 H mmol/L
(135-145)
Creatinine 1.6 H mg/dL
(0.7-1.3)
Glucose 109 H mg/dl
(70-99)
Total Protein 6.0 L g/dl
(6.3-8.2)
Albumin 3.3 L g/dl
(3.5-5.0)
03/02/25 05:10
03/02/25 05:10
Vital Signs
Initial and Last Documented VS:
Initial Vital Signs
Temp Pulse Resp BP Pulse Ox
99.4 F 86 20 127/78 99
03/02/25 04:25 03/02/25 04:25 03/02/25 04:25 03/02/25 04:25 03/02/25 04:25
Last Documented Vital Signs
Temp Pulse Resp BP Pulse Ox
99.4 F 99 16 139/87 97
03/02/25 04:25 03/02/25 11:14 03/02/25 11:14 03/02/25 11:15 03/02/25 11:14
MDM/Problems Addressed
Differential Diagnosis Includes:
Note:
CHIEF COMPLAINT(S)
Back pain and bruising at the site of recent vascular surgery, accompanied by sweating and potential infection.
HISTORY OF PRESENT ILLNESS
The patient is a 74-year-old male with a history of atrial fibrillation, previously treated with Eliquis (apixaban), who presented due to concerns following vascular surgery for thrombosis. The patient initially experienced an episode of clotting
while on Eliquis, described as both old and new clots, indicating a failure of the anticoagulation medication. As per the vascular surgeon, Dr. Ivan, and as managed by cardiology, the patient was transitioned to Pardaxa (dabigatran).
The patient reports recent back pain, increased warmth, and bruising at his R flank worsened last night at approximately 8 PM. These symptoms were accompanied by unexplained sweating and changes necessitating a clothing change due to being soaked, a
new development over the past two nights.He recently underwent thrombectomy of R leg.
PAST MEDICAL AND SURIGICAL HISTORY
Patient has history of atrial fibrillation, complicated by previous clotting episodes while on anticoagulation therapy. Recently underwent surgery for thrombosis with a new thrombectomy device, complicated by an aortic aneurysm repair (AAA) and a
single kidney due to previous surgical complications. Additionally, a Luis Felipe filter was placed to prevent future thromboembolic events.
EXTERNAL RECORDS REVIEWED
Reviewed medication side effects related to Pardaxa, Eliquis, and amiodarone. Evaluation of the patients CT scan results pending radiology interpretation.
CHRONIC MEDICAL CONDITIONS SIGNIFICANTLY AFFECTING CARE
The patient has a history of atrial fibrillation and a solitary kidney which significantly impacts the choice of anticoagulation therapy and pain management approach.
SOCIAL DETERMINANTS AFFECTING HEALTH
Not explicitly discussed.
MEDICATIONS
- Pardaxa (dabigatran) for anticoagulation.
- Previously on Eliquis (apixaban) and amiodarone (discontinued).
- Morphine considered for acute pain management.
- Avoidance of NSAIDs due to anticoagulation and renal status.
PHYSICAL EXAM
General: Alert, no acute distress.
Skin: Warm, dry.
Head: Normocephalic, atraumatic
Neck: Appears supple, trachea midline.
Eyes, Ears, Nose, Mouth, and Throat: Moist mucous membranes
Cardiovascular: No signs of cyanosis
Respiratory: Respirations are non-labored.
Abdomen: Non-distended
Back: Bruising and tenderness to right lower flank
Musculoskeletal: +2 pitting edema to right lower extremity but distal pulses intact
Neurological: No focal neurological deficit observed.
Psychiatric: Cooperative, appropriate mood and affect.
PROBLEM LIST
Acute Problems:
1. Back pain and potential infected hematoma at the surgical site.
2. Sweating episodes and systemic symptoms potentially indicative of infection.
Chronic Problems:
1. Atrial fibrillation.
2. Single kidney status.
PLAN
1. Await radiology interpretation of CT scan to confirm diagnosis and guide treatment.
2. Manage pain with low-dose morphine due to contraindications with NSAIDs.
3. Consult vascular surgeon if CT results are inconclusive.
4. Monitor patient for signs of infection or worsening of current symptoms.
DIFFERENTIAL DIAGNOSIS
The Differential Diagnosis includes, in no particular order and is not limited to:
1. Hematoma at the surgical site.
2. Infected surgical site or hematoma.
3. Intra-abdominal or retroperitoneal bleed.
4. Medication-induced side effects.
5. Recurrence of thrombosis.
6. Partial bowel obstruction.
7. Renal colic from kidney stones.
8. Back contusion unrelated to surgery.
9. Deep vein thrombosis.
10. Other forms of systemic infection.
03/02/25 - 07:57
The non-contrast CT did not provide a clear explanation for the patient�s symptoms in the context of their history of aneurysm and recent right femoral thrombectomy. After consulting with vascular surgery, it was decided to proceed with a CT aorta
with runoff to the right lower extremity for further evaluation.
SUMMARY OF ENCOUNTER
The patient, a 74-year-old male with a history of atrial fibrillation previously treated with apixaban, presented to the emergency department due to back pain and symptoms suggestive of an infection at the site of recent vascular surgery. Initial
imaging, including a non-contrast CT scan, was inconclusive regarding potential complications such as kidney stones or further vascular issues. In response to ongoing concerns, a CT angiogram was performed, revealing no acute pathology. Consultation
with the vascular surgery team confirmed these findings. On reassessment, the patient reported significant improvement in symptoms and felt comfortable with discharge. The sweating and fever episodes were considered potentially related to
post-surgical changes, with return precautions discussed.
DISPOSITION
Discharge.
ASSESSMENT
Potential infected hematoma post-surgery, resolved as imaging showed no acute pathology. Symptoms could be due to post-surgical changes.
MANAGEMENT OF THE PATIENTS CARE WAS DISCUSSED WITH
Vascular surgery team for evaluation and confirmation of CT angiogram results.
PLAN
Discharge the patient with return precautions for any worsening symptoms, including fever or increased back pain.
INDEPENDENT REVIEW OF LABS AND INTERPRETATION OF TESTS
My independent interpretation of the CT angiogram shows no acute pathology.
PATIENT EDUCATION AND COUNSELING
Discussed the possibility of post-surgical changes causing current symptoms, and provided return precautions in case of worsening symptoms.
FOLLOW-UP INSTRUCTIONS
Instructed to follow up with his primary care physician and vascular surgeon as needed.
MEDICAL DECISION MAKING
-Complexity of Data Reviewed: Chronic conditions affecting care include atrial fibrillation and single kidney status. Differential diagnosis included potential infected hematoma, systemic infection, medication side effects, and post-surgical changes.
-Data:
Category 1
I reviewed the patients outpatient medication and procedure history for context.
Category 3
Discussion of management with vascular surgery, who confirmed no acute pathology from CT angiogram.
-Risk:
Prescription medication management was reviewed, and considerations for potential complications due to underlying conditions were discussed.
DIAGNOSIS
Internal surgical site infection with ICD-10 code T81.40 (possible post-surgical changes).
*Pulse Oximetry
SaO2: 99
Oxygen Mode of Delivery: Room air
Patient hypoxic: no
*Critical Care Note
Total Time (30-74mins, 75-104mins- exclusive of procedures): Not Applicable
ED Attending Note
-
Portions of this chart may have been created with voice recognition software.� Occasional wrong word or��sound alike� substitutions may have occurred due to the inherent limitations of voice recognition software.
Discharge Plan
Departure
Patient Disposition: Home (Routine Discharge)
Date of Disposition: 03/02/25
Time of Disposition: 11:02
Patient with high blood pressure during this ER visit?: No
Discharge Problem:
Acute flank pain
Instructions: Flank Pain (DC)
Prescriptions:
No Action
omeprazole 20 MG capsule,delayed release(DR/EC)
20 mg PO DAILY
loratadine 10 MG tablet
10 mg PO DAILY
atorvastatin 40 mg Tablet
40 mg PO QPM
ezetimibe 10 mg Tablet
10 mg PO DAILY
coenzyme Q10 [CoQ-10] 100 mg Capsule
300 mg PO DAILY
cholecalciferol (vitamin D3) [Vitamin D3] 50 mcg (2,000 unit) Tablet
50 mcg PO QPM
multivitamin Tablet
1 tab PO QPM
aspirin 81 mg Tablet,Delayed Release (Dr/Ec)
81 mg PO DAILY
albuterol sulfate [Ventolin HFA] 90 mcg/actuation Hfa Aerosol Inhaler
2 puff INHALATION R Q4HPRN PRN (Reason: sob)
Prevagen
1 cap PO DAILY
metoprolol succinate 25 mg tablet extended release 24 hr
12.5 mg PO DAILY
Rx Instructions:
hold for SBP<100
Edarbi 40 mg tablet
20 mg PO QPM
docusate sodium 100 mg Capsule
100 mg PO BID Qty: 30 0RF
dabigatran etexilate [Pradaxa] 150 mg Capsule
150 mg PO BID Qty: 90 2RF
Referrals:
Charles Stewart MD [Family Provider, Internal Medicine]
Activity Restrictions/Additional Instructions:
Please return for any worsening symptoms.
You may return at any time if you have further concerns.
Please follow up with your doctor at the first available appointment, preferably this week.
Thank you for choosing [facility].
Interventions
Interventions:
*Risk Screen - Suicide Last Done: 03/02/25 04:25
*General Assessment Last Done: 03/02/25 04:25
*Neglect/Abuse Screening Last Done: 03/02/25 04:25
*ED- Fall Risk Assessment Last Done: 03/02/25 04:25
*ED COVID-19 Vaccine History Last Done: 03/02/25 04:25
*ED Influenza Vaccine History Last Done: 03/02/25 04:25
*Nursing Disposition Last Done: 03/02/25 12:45
MR-Brxjhi-Zgwsficqyw Assessment Last Done: 03/02/25 05:32
Discharge Date and Time
Discharge Date/Time: 03/02/25 12:48
Print Language: BRITISH
[2025-03-02] MEDS: MORPHINE SULFATE 4 MG IV (07:06)
[2025-03-02] MEDS: NSS 1000 IV (08:35)
== END 2025-03-02 12:48 | disposition home or self-care (01) ==
LOC: EMR 04:19
PROVIDERS: Student in an Organized Health Care Education/Training Program; EMERGENCY PHYSICIAN Student in an Organized Health Care Education/Training Program; FAMILY PHYSICIAN Internal Medicine
DX: R10.9 Unspecified abdominal pain (principal); L76.32 Postprocedural hematoma of skin and subcutaneous tissue following other procedure; M54.9 Dorsalgia, unspecified; I25.10 Atherosclerotic heart disease of native coronary artery without angina pectoris; I10 Essential (primary) hypertension; E78.00 Pure hypercholesterolemia, unspecified; I48.91 Unspecified atrial fibrillation; Z79.01 Long term (current) use of anticoagulants
CPT/HCPCS: 96374; 96361; 99284; 74176; 75635; 80053; 81003; 83605; 85025; 85610; 86850; 86900; 86901; 87040; 93005; Q9967

== ENCOUNTER → 2025-03-05 13:11 | Outpatient (REF) | payer MEDICARE, SELFPAY ==
[2025-03-05 16:11] LABS: Hematocrit 29.7 % (39.0-52.0); Hemoglobin 9.5 g/dL (13.0-18.0); Mean Corp Hgb Conc. 32.0 g/dL (33.0-37.0); Mean Corpuscular Volume 89.5 fL (80.0-94.0); Nucleated Red Blood Cells % 0 % (-); Platelet Count 242 10^3/uL (130-400); Red Cell Dist. Width 14.5 % (11.5-14.5)
[2025-03-05 16:28] LABS: Albumin 3.8 g/dl (3.5-5.0); Blood Urea Nitrogen 16 mg/dl (9-20); Calcium 9.2 mg/dl (8.4-10.2); Carbon Dioxide 27 mmol/L (22-30); Chloride 104 mmol/L (98-107); Glucose 92 mg/dl (70-99); Potassium 4.8 mmol/L (3.5-5.1); Sodium 137 mmol/L (135-145); eGFR 42.04
== END ==
LOC: HWLAB 13:11
PROVIDERS: ATTENDING PHYSICIAN Internal Medicine
DX: Z98.890 Other specified postprocedural states (principal); I95.1 Orthostatic hypotension; I48.0 Paroxysmal atrial fibrillation; Z86.718 Personal history of other venous thrombosis and embolism; D64.9 Anemia, unspecified
CPT/HCPCS: 36415; 80069; 85025

== ENCOUNTER → 2025-03-06 10:43 | Outpatient (REF) | payer MEDICARE, SELFPAY ==
[2025-03-06 15:22] LABS: Calcium 9.3 mg/dl (8.4-10.2); Iron 56 ug/dl (49-181)
[2025-03-06 15:32] LABS: Total Iron Binding Capacity 307 ug/dl (261-462)
[2025-03-06 15:54] LABS: Ferritin 119.0 ng/ml (17.9-464.0)
== END ==
LOC: HWLAB 10:43
PROVIDERS: ATTENDING PHYSICIAN Internal Medicine; FAMILY PHYSICIAN Internal Medicine
DX: I10 Essential (primary) hypertension (principal); E87.5 Hyperkalemia; N18.31 Chronic kidney disease, stage 3a; Z98.890 Other specified postprocedural states; I25.10 Atherosclerotic heart disease of native coronary artery without angina pectoris; Z98.61 Coronary angioplasty status; I74.3 Embolism and thrombosis of arteries of the lower extremities; E78.5 Hyperlipidemia, unspecified; I34.0 Nonrheumatic mitral (valve) insufficiency
CPT/HCPCS: 36415; 82728; 83540; 83550; 83970

== ENCOUNTER 2025-03-17 19:57 | Emergency (ER) | payer MEDICARE, SELFPAY ==
[2025-03-17 20:08] VITALS: BP 186/110
[2025-03-17 21:35] VITALS: BMI 27.5
[2025-03-17 21:41] VITALS: BP 151/93
--- NOTE | 2025-03-17 21:50 | ED.GENMED ---
History of Present Illness
General
Chief Complaint: Allergic Reaction
Time Seen by Provider: 03/17/25 21:50
History of Present Illness
History of Present Illness:
FOCUSED PAST MEDICAL HISTORY
- A-fib on Pradaxa, COPD, CAD, CKD, right TKA
REVIEW OF OLD RECORDS
- The patient went to the OR earlier this month after CT suggested occlusive thrombus at the right iliac and was taken for thrombectomy and went back to the OR for washout of hematoma, bloody drainage persist through the ABNER drain
- It appears he was switched from Eliquis to Pradaxa at last admission as he was felt to have 'Eliquis failure' as he developed a clot while on Eliquis
Note:
CHIEF COMPLAINT(S)
Rash on both sides of the body, severe itching.
HISTORY OF PRESENT ILLNESS
The patient is a 74-year-old male with a history of atrial fibrillation and aneurysm repair. He presents with a severe rash that developed approximately two weeks after starting on Dabigatran (Pradaxa), which was switched from Apixaban (Eliquis) due
to therapeutic failure. The rash began on both sides of the body, near the scrotal area, but it does not resemble shingles as its bilateral. The rash is described as raw and intensely itchy, although there is no mention of bleeding. The patient has
experienced bleeding issues previously while on Apixaban. Dabigatran was started on January 28, following an aneurysm repair on January 27, which resulted in numbness and loss of function in the leg, requiring emergency surgery by Dr. Ivan.
PAST MEDICAL AND SURGICAL HISTORY
Repair of aortic aneurysm on January 27.
CHRONIC MEDICAL CONDITIONS SIGNIFICANTLY AFFECTING CARE
Atrial fibrillation.
ALLERGIES
No known drug allergies.
MEDICATIONS
Dabigatran (Pradaxa).
REVIEW OF SYSTEMS
- Skin: Rash on both sides of the body, described as raw and intensely itchy.
- Musculoskeletal: History of numbness and loss of function in the leg following aneurysm repair, currently resolved with good pulses in both feet.
PHYSICAL EXAM
General: Alert, no acute distress.
Skin: Macular rash present proximal inner thighs near the scrotum but not involving the scrotum, no evidence of cellulitis, no evidence of Billy's gangrene
Cardiovascular: Normal peripheral perfusion, pulses palpable in both feet. Strong DP pulses bilaterally
Musculoskeletal: Good pulses in both feet, no evidence of arterial clot.
PLAN
1. Consult the on-call vascular surgeon regarding the rash and the patients post-procedural course.
2. Consider switching anticoagulant therapy if the rash is deemed an allergic reaction to Dabigatran.
DIFFERENTIAL DIAGNOSIS
The Differential Diagnosis includes, in no particular order and is not limited to:
1. Allergic reaction to Dabigatran.
2. Contact dermatitis.
3. Atopic dermatitis.
4. Drug-induced rash.
5. Viral exanthem.
6. Psoriasis.
7. Erythema multiforme.
8. Lichen planus.
9. Systemic lupus erythematosus (cutaneous manifestations).
10. Pemphigoid disorders.
Disposition:
SUMMARY OF ENCOUNTER
The patient, a 74-year-old male with a history of atrial fibrillation and recent aneurysm repair, presented with a severe rash and intense itching on both sides of the body, suspected to be a reaction to dabigatran. After discussing with Dr. Calvo
and Dr. Briceño, and without access to a lead electrical controls engineer, it was acknowledged that a definitive link to dabigatran could not be established. Non-prescription hydrocortisone cream was recommended to alleviate symptoms. Anticoagulation options like
warfarin were considered but not decided upon, leaving changes to be discussed with the patients sheet metal apprentice, Dr. Chaney, during his follow-up.
PLAN
The patient was advised to apply hydrocortisone cream on the affected area for a few days. If symptoms persist, he is to consult his sheet metal apprentice for further evaluation and potential changes in anticoagulation therapy.
PATIENT EDUCATION AND COUNSELING
Informed about using the hydrocortisone cream available [id number] to manage the rash. Discussed the uncertain link between the rash and dabigatran. Encouraged to discuss further management options with his sheet metal apprentice.
FOLLOW-UP INSTRUCTIONS
The patient was instructed to follow up with his sheet metal apprentice, Dr. Chaney, the following day to discuss the rash and any potential changes to anticoagulation therapy.
MEDICATION RECONCILIATION
Hydrocortisone cream 1% given for topical application to alleviate rash symptoms. This is available [id number], with one dose provided at the facility.
MEDICAL DECISION MAKING
Number and Complexity of Problems Addressed: Chronic conditions affecting care include atrial fibrillation and recent aneurysm repair. Differential diagnosis includes allergic reaction to dabigatran, drug-induced rash, or contact dermatitis.
Data:
Category 1: No labs or imaging was ordered.
Category 3: Communication with Dr. Briceño and Dr. Calvo regarding management options. No consensus reached; lead electrical controls engineer consultation was deemed ideal but unavailable.
CRITICAL CARE TIME
I provided 30 minutes of critical care time. Due to the uncertainty of the rashs cause and high-risk anticoagulation management, careful attention was essential.
DIAGNOSIS
T78.40XA - Allergy, unspecified, initial encounter. L29.9 - Pruritus, unspecified.
I discussed case with Dr. Briceño but could not give any definitive recommendations
I then discussed case with Dr. Calvo who suggested that the patient should follow-up with lead electrical controls engineer
It is unclear to me if this is truly a rash related to the Pradaxa, his rash is localized with no other systemic symptoms
He is well-appearing
Since he has an appoint to see his sheet metal apprentice, Dr. Urias, tomorrow he will just use hydrocortisone cream for now
Past History
Past History
ED Past Medical History: CAD, GERD, HTN, Hypercholesterolemia and Other (AAA)
ED Past Surgical History: Cardiac, Orthopedic and Urological
Social History
Tobacco: Non-smoker
Personal:
Phy Exam
Physical Exam
Physical Exam:
See HPI
Course
Vital Signs
Initial and Last Documented VS:
Initial Vital Signs
Temp Pulse Resp BP Pulse Ox
36.9 C 87 20 186/110 98
03/17/25 20:08 03/17/25 20:08 03/17/25 20:08 03/17/25 20:08 03/17/25 20:08
Last Documented Vital Signs
Temp Pulse Resp BP Pulse Ox
36.6 C 72 24 163/95 96
03/17/25 21:44 03/17/25 22:00 03/17/25 22:00 03/17/25 22:00 03/17/25 22:00
*Pulse Oximetry
SaO2: 97
Oxygen Mode of Delivery: Room air
Patient hypoxic: no
*Critical Care Note
Total Time (30-74mins, 75-104mins- exclusive of procedures): Not Applicable
ED Attending Note
-
Portions of this chart may have been created with voice recognition software.� Occasional wrong word or��sound alike� substitutions may have occurred due to the inherent limitations of voice recognition software.
Discharge Plan
Departure
Prescriptions:
No Action
omeprazole 20 MG capsule,delayed release(DR/EC)
20 mg PO DAILY
loratadine 10 MG tablet
10 mg PO DAILY
atorvastatin 40 mg Tablet
40 mg PO QPM
ezetimibe 10 mg Tablet
10 mg PO DAILY
coenzyme Q10 [CoQ-10] 100 mg Capsule
300 mg PO DAILY
cholecalciferol (vitamin D3) [Vitamin D3] 50 mcg (2,000 unit) Tablet
50 mcg PO QPM
multivitamin Tablet
1 tab PO QPM
aspirin 81 mg Tablet,Delayed Release (Dr/Ec)
81 mg PO DAILY
albuterol sulfate [Ventolin HFA] 90 mcg/actuation Hfa Aerosol Inhaler
2 puff INHALATION R Q4HPRN PRN (Reason: sob)
Prevagen
1 cap PO DAILY
metoprolol succinate 25 mg tablet extended release 24 hr
12.5 mg PO DAILY
Rx Instructions:
hold for SBP<100
Edarbi 40 mg tablet
20 mg PO QPM
docusate sodium 100 mg Capsule
100 mg PO BID Qty: 30 0RF
dabigatran etexilate [Pradaxa] 150 mg Capsule
150 mg PO BID Qty: 90 2RF
Referrals:
Charles Stewart MD [Family Provider, Internal Medicine]
Interventions
Interventions:
*Risk Screen - Suicide Last Done: 03/17/25 20:08
*General Assessment Last Done: 03/17/25 20:08
*Neglect/Abuse Screening Last Done: 03/17/25 20:08
*ED- Fall Risk Assessment Last Done: 03/17/25 20:08
*ED COVID-19 Vaccine History Last Done: 03/17/25 20:08
*ED Influenza Vaccine History Last Done: 03/17/25 20:08
ED- Cardiac Assessment Last Done: 03/17/25 22:03
ED- Pulmonary Assessment Last Done: 03/17/25 22:03
ED-Skin Assessment Last Done: 03/17/25 22:03
Discharge Date and Time
Print Language: QATARI
[2025-03-17 22:00] VITALS: BP 163/95
[2025-03-17 23:00] VITALS: BP 148/86
[2025-03-17] MEDS: HYDROCORTISONE 1% CREAM 1 APPLIC TOPICAL (23:16)
== END 2025-03-17 23:27 | disposition home or self-care (01) ==
LOC: EMR 19:57
PROVIDERS: EMERGENCY PHYSICIAN Emergency Medicine; FAMILY PHYSICIAN Internal Medicine
DX: R21 Rash and other nonspecific skin eruption (principal); I48.91 Unspecified atrial fibrillation; J44.9 Chronic obstructive pulmonary disease, unspecified; I25.10 Atherosclerotic heart disease of native coronary artery without angina pectoris; I12.9 Hypertensive chronic kidney disease with stage 1 through stage 4 chronic kidney disease, or unspecified chronic kidney disease; N18.9 Chronic kidney disease, unspecified; E78.00 Pure hypercholesterolemia, unspecified; Z79.01 Long term (current) use of anticoagulants; Z86.79 Personal history of other diseases of the circulatory system; Z96.651 Presence of right artificial knee joint
CPT/HCPCS: 99282

== ENCOUNTER → 2025-04-11 08:37 | Outpatient (REF) | payer MEDICARE, SELFPAY ==
[2025-04-11 10:09] LABS: Hematocrit 40.1 % (39.0-52.0); Hemoglobin 12.7 g/dL (13.0-18.0); Mean Corp Hgb Conc. 31.7 g/dL (33.0-37.0); Mean Corpuscular Volume 89.5 fL (80.0-94.0); Nucleated Red Blood Cells % 0 % (-); Platelet Count 177 10^3/uL (130-400); Red Cell Dist. Width 14.3 % (11.5-14.5)
[2025-04-11 10:33] LABS: Albumin 4.2 g/dl (3.5-5.0); Blood Urea Nitrogen 15 mg/dl (9-20); Calcium 9.5 mg/dl (8.4-10.2); Carbon Dioxide 30 mmol/L (22-30); Chloride 103 mmol/L (98-107); Glucose 93 mg/dl (70-99); Potassium 4.6 mmol/L (3.5-5.1); Sodium 138 mmol/L (135-145); eGFR 45.21
== END ==
LOC: HWLAB 08:37
PROVIDERS: ATTENDING PHYSICIAN Internal Medicine; FAMILY PHYSICIAN Internal Medicine
DX: N18.32 Chronic kidney disease, stage 3b (principal)
CPT/HCPCS: 36415; 80069; 82570; 84156; 85025

== ENCOUNTER 2025-04-17 07:08 | Emergency (ER) | payer MEDICARE, SELFPAY ==
[2025-04-17 07:13] VITALS: BP 147/105
[2025-04-17 07:24] VITALS: BP 153/107
--- NOTE | 2025-04-17 07:44 | ED.GENMED ---
History of Present Illness
General
Chief Complaint: Heart Rate Problem
Source: patient
Exam Limitations: none
Time Seen by Provider: 04/17/25 07:41
Nursing documentation reviewed up to this point in time: agreed with
History of Present Illness
History of Present Illness:
74 yo male w h/o AAA repair 2019, Afib on Pradaxa and ASA, HTN, HLD, MD, cardiac stents, presents for 'a fib.' Sates heart palpitations and a sensation of rapid heartbeats that began at 3 AM. The patient reports intermittent episodes of shortness of
breath, describing it as feeling like he's running. He has been monitoring his condition using a blood pressure cuff and a smart watch, both indicating episodes of atrial fibrillation. Per , his heart rate has fluctuated between 125 beats per
minute and 70's. The patient hx RLE DVT, and an apparent failure of anticoagulation therapy with Eliquis (apixaban) last February.
He has regular follow-up appointments, including one with his aerospace medicine physician, Dr. Urias and Dr. Cormier Dredge Pumper, who manages his blood pressure and kidney health, given his history of having only one functional kidney due to compromised blood
supply during AAA repair 2019.
He has taken his morning medications today, which include anticoagulants and antihypertensives, but has skipped his vitamins. Pt denies CP, abd pain. Denies n/v/d/c.
Has been taking Metoprolol 25 mg daily
Past History
Past History
ED Past Medical History: CAD, GERD, HTN, Hypercholesterolemia and Other (AAA)
ED Past Surgical History: Cardiac, Orthopedic and Urological
Social History
Tobacco: Non-smoker
Personal:
Living: with family
Review of Systems
Review of Systems
Allergies reviewed?: Yes
All Other Systems: ROS reviewed and negative except as documented in HPI and ROS
Phy Exam
Physical Exam
Physical Exam:
GENERAL: No acute distress. A&Ox3.
CONSTITUTIONAL: Afebrile.
EYES: clear, conjunctivae normal
ENMT: moist mucus membranes, Pharynx nl
RESPIRATORY: Regular respirations, nonlabored, lungs clear.
CARDIOVASCULAR: Afib on bedside monitor HR low 70-110. Irregular HR, no murmurs, no rubs.
GI: Soft, nontender, normal BS
MUSCULOSKELETAL: Moves with ease. Well perfused. No edema
SKIN: Warm, dry, pink
PSYCH: Normal mood and affect. Well kept, interactive and appropriate
NEUROLOGIC: Awake, alert and oriented. No focal neurological deficits
Course
Orders/Labs/Results
Orders:
Orders
04/17/25 07:19
ECG [Electrocardiogram (*1)] Urgent
Reason for Study: Atrial Fibrillation
04/17/25 07:20
EKG- Treatment ONCE
04/17/25 08:02
Complete Blood Count/With Diff Urgent
Comprehensive Metabolic Panel Urgent
04/17/25 08:27
Electrocardiogram (*1) Urgent
Reason for Study: Abnormal EKG
EKG- Treatment ONCE
Abnormal Lab Results
04/17/25
08:02
RBC 4.63 L 10^6/uL
(4.70-6.10)
Absolute Monos (auto) 0.7 H 10^3/uL
(0.1-0.6)
Lymphocytes % 18.4 L %
(20.5-51.1)
Monocytes % 10.7 H %
(1.7-9.3)
Chloride 108 H mmol/L
(98-107)
Creatinine 1.4 H mg/dL
(0.7-1.3)
Glucose 100 H mg/dl
(70-99)
04/17/25 08:02
04/17/25 08:02
Vital Signs
Initial and Last Documented VS:
Initial Vital Signs
Temp Pulse Resp BP Pulse Ox
97.7 F 75 18 147/105 98
04/17/25 07:13 04/17/25 07:13 04/17/25 07:13 04/17/25 07:13 04/17/25 07:13
Last Documented Vital Signs
Temp Pulse Resp BP Pulse Ox
97.7 F 72 27 152/92 97
04/17/25 07:13 04/17/25 10:30 04/17/25 09:45 04/17/25 10:00 04/17/25 10:30
MDM/Problems Addressed
Differential Diagnosis Includes:
A fib with RVR, electrolyte imbalance, thyroid disorder
MDM/Problems Addressed:
74 yo male w h/o AAA repair 2019, Afib on Pradaxa and ASA, HTN, HLD, MD, cardiac stents, presents for 'a fib.' Sates heart palpitations and a sensation of rapid heartbeats that began at 3 AM. The patient reports intermittent episodes of shortness of
breath, describing it as feeling like he's running. He has been monitoring his condition using a blood pressure cuff and a smart watch, both indicating episodes of atrial fibrillation. Per , his heart rate has fluctuated between 125 beats per
minute and 70's. The patient hx RLE DVT, and an apparent failure of anticoagulation therapy with Eliquis (apixaban) last February.
He has regular follow-up appointments, including one with his aerospace medicine physician, Dr. Urias and Dr. Cormier Dredge Pumper, who manages his blood pressure and kidney health, given his history of having only one functional kidney due to compromised blood
supply during AAA repair 2019.
He has taken his morning medications today, which include anticoagulants and antihypertensives, but has skipped his vitamins. Pt denies CP, abd pain. Denies n/v/d/c.
NAD bedside monitor showing A fib rate 70's to 120
EKG:AFB HR 111
8:30 a.m.
Pt converted to NSR
CBC normal
CMP no clinically significant abnormality, consistent with his CKD
9:30 a.m.
Remains NSR
Final diagnosis: PAF
Plan: Increase metoprolol to 25 mg in the morning and 12 point 5 at night and contact your aerospace medicine physician on Monday
*Pulse Oximetry
SaO2: 98
Oxygen Mode of Delivery: Room air
Patient hypoxic: no
*EKG
EKG Intrepretation Date: 04/17/25
Interpretation: abnormal
Heart Rate: 107
Rate: tachycardiac
Rhythm: a-fib
[place]: normal axis
QRS Pattern: normal QRS
Ischemia: no ischemia
*Critical Care Note
Total Time (30-74mins, 75-104mins- exclusive of procedures): Not Applicable
ED Attending Note
-
Portions of this chart may have been created with voice recognition software.� Occasional wrong word or��sound alike� substitutions may have occurred due to the inherent limitations of voice recognition software.
Discharge Plan
Departure
Patient Disposition: Home (Routine Discharge)
Date of Disposition: 04/17/25
Time of Disposition: 10:17
Patient with high blood pressure during this ER visit?: No
Condition: Good
Discharge Problem:
Paroxysmal atrial fibrillation
Instructions: Atrial Fibrillation (DC)
Prescriptions:
No Action
omeprazole 20 MG capsule,delayed release(DR/EC)
20 mg PO DAILY
loratadine 10 MG tablet
10 mg PO DAILY
atorvastatin 40 mg Tablet
40 mg PO QPM
ezetimibe 10 mg Tablet
10 mg PO DAILY
coenzyme Q10 [CoQ-10] 100 mg Capsule
300 mg PO DAILY
cholecalciferol (vitamin D3) [Vitamin D3] 50 mcg (2,000 unit) Tablet
50 mcg PO QPM
multivitamin Tablet
1 tab PO QPM
aspirin 81 mg Tablet,Delayed Release (Dr/Ec)
81 mg PO DAILY
albuterol sulfate [Ventolin HFA] 90 mcg/actuation Hfa Aerosol Inhaler
2 puff INHALATION R Q4HPRN PRN (Reason: sob)
Prevagen
1 cap PO DAILY
metoprolol succinate 25 mg tablet extended release 24 hr
25 mg PO DAILY
Rx Instructions:
hold for SBP<100
Edarbi 40 mg tablet
40 mg PO QPM
dabigatran etexilate [Pradaxa] 150 mg capsule
150 mg PO BID
Referrals:
Brody Urias DO [Active, Cardiology] - Call in 1-3 days for appt
Charles Stewart MD [Family Provider, Internal Medicine]
Activity Restrictions/Additional Instructions:
As we discussed, increase your metoprolol to 25 mg in the morning and 12.5 mg in the evening
Call your aerospace medicine physician on Monday and inform of today's visit and the change in medication.
Return here immediately over the weekend if your symptoms worsen or anything concerns you.
Interventions
Interventions:
*Risk Screen - Suicide Last Done: 04/17/25 07:46
*General Assessment Last Done: 04/17/25 07:46
*Neglect/Abuse Screening Last Done: 04/17/25 07:46
*ED- Fall Risk Assessment Last Done: 04/17/25 07:46
*ED COVID-19 Vaccine History Last Done: 04/17/25 07:46
*ED Influenza Vaccine History Last Done: 04/17/25 07:46
*Nursing Disposition Last Done: 04/17/25 10:35
ED- Cardiac Assessment Last Done: 04/17/25 07:46
ED- Pulmonary Assessment Last Done: 04/17/25 07:46
Discharge Date and Time
Discharge Date/Time: 04/17/25 10:35
Print Language: MARTINIQUAIS
[2025-04-17 07:45] VITALS: BMI 27.7
[2025-04-17 08:00] VITALS: BP 155/96
[2025-04-17 08:16] LABS: Hematocrit 40.3 % (39.0-52.0); Hemoglobin 13.3 g/dL (13.0-18.0); Mean Corp Hgb Conc. 33.0 g/dL (33.0-37.0); Mean Corpuscular Volume 87.0 fL (80.0-94.0); Nucleated Red Blood Cells % 0 % (-); Platelet Count 163 10^3/uL (130-400); Red Cell Dist. Width 14.3 % (11.5-14.5)
[2025-04-17 08:29] LABS: ALT (SGPT) 19 U/L (0-50); AST (SGOT) 27 U/L (17-59); Albumin 4.4 g/dl (3.5-5.0); Alkaline Phosphatase 74 U/L (38-126); Blood Urea Nitrogen 15 mg/dl (9-20); Calcium 9.6 mg/dl (8.4-10.2); Carbon Dioxide 26 mmol/L (22-30); Chloride 108 mmol/L (98-107); Estimated Creatinine Clearance 53 ml/min; Glucose 100 mg/dl (70-99); Potassium 4.4 mmol/L (3.5-5.1); Sodium 139 mmol/L (135-145); Total Protein 7.5 g/dl (6.3-8.2); eGFR 53.07
[2025-04-17 09:00] VITALS: BP 154/98
[2025-04-17 10:00] VITALS: BP 152/92
== END 2025-04-17 10:35 | disposition home or self-care (01) ==
LOC: EMR 07:08
PROVIDERS: Registered Nurse; EMERGENCY PHYSICIAN Student in an Organized Health Care Education/Training Program; FAMILY PHYSICIAN Internal Medicine
DX: I48.0 Paroxysmal atrial fibrillation (principal); I10 Essential (primary) hypertension; E78.00 Pure hypercholesterolemia, unspecified; I25.10 Atherosclerotic heart disease of native coronary artery without angina pectoris; Z79.01 Long term (current) use of anticoagulants; Z79.899 Other long term (current) drug therapy; Z86.718 Personal history of other venous thrombosis and embolism; Z86.79 Personal history of other diseases of the circulatory system; Z95.5 Presence of coronary angioplasty implant and graft
CPT/HCPCS: 99283; 80053; 85025; 93005